=== PATIENT | female | born 1965 | race Caucasian/White ===

== ENCOUNTER → 2017-12-05 14:55 | Outpatient (CLI) | payer OTHER, SELFPAY ==
--- NOTE | 2017-12-05 | DI.RAD.S_ITS ---
PROCEDURE: XR KUB INDICATIONS: KIDNEY STONES TECHNIQUE: One view of the abdomen acquired. COMPARISON: [facility], CR, XR ABDOMEN 1 VIEW, 10/18/2017, 11:18. FINDINGS: Surgical changes and devices: Cholecystectomy. Discectomy and fusion L3-4.. Bowel: Bowel gas pattern is normal. Soft tissues: Numerous calcifications overlie both kidneys.. Visualized solid organ contours appear normal in size. Bones: No suspicious bony lesions. IMPRESSION: Bilateral nephrolithiasis. Dictated by: Barber Zapata M.D. on 12/05/2017 at 15:13 Approved by: Barber Zapata M.D. on 12/05/2017 at 15:14
== END ==
PROVIDERS: PCP Family Medicine; Visit Provider Specialist
DX: N20.0 Calculus of kidney (principal)
CPT/HCPCS: 74018

== ENCOUNTER → 2017-12-11 12:39 | Outpatient (CLI) | payer OTHER, SELFPAY ==
--- NOTE | 2017-12-11 | DI.CT.S_ITS ---
PROCEDURE: CT ABDOMEN PELVIS WO CON INDICATIONS: KIDNEY STONES, COUGH TECHNIQUE: Noncontrast 5 mm thick sections acquired from the diaphragms to the symphysis. 5 mm thick coronal and sagittal reformats were then performed. For radiation dose reduction, the following was used: automated exposure control, adjustment of mA and/or kV according to patient size. COMPARISON: [facility], US, RENAL COMPLETE, 04/06/2016, 16:28. [facility], US, US ABDOMEN, 04/25/2016, 8:06. [facility], CT, KIDNEY/ URETER/BLADDER, 03/06/2017, 16:25. [facility], CT, CT KUB, 07/27/2017, 12:42. [facility], CT, KIDNEY/ URETER/BLADDER, 08/14/2011, 9:30. [facility], CT, CT KUB, 11/17/2017, 10:03. [facility], CT, KIDNEY/ URETER/BLADDER, 11/01/2013, 18:02. [facility], CT, KIDNEY/ URETER/BLADDER, 01/26/2008, 12:00. FINDINGS: Image quality: Excellent. Lung bases: A 5 mm subpleural nodule is noted in the right middle lobe, unchanged from 01/26/2008, consistent with a benign nodule. Lung bases are clear. Heart size is normal. Urinary system: Again noted is a 4 mm proximal right ureteral stone, unchanged in position. There is trace right pelviectasis. Numerous calcific densities are present in kidneys bilaterally with distribution consistent with nephrocalcinosis. Overall, no significant change from last exam. The right kidney is slightly decreased in size compared to the left kidney. Ureters are seen in expected position. Bladder and is contracted. No bladder stones. Other solid organs: Liver is normal in size. Gallbladder is surgically absent. Pancreas is normal in contours. Spleen is normal in size. No adrenal nodules. Peritoneum and bowel: Unenhanced bowel loops demonstrate normal wall thickness and caliber. No free fluid or air. Nodes and vessels: No retroperitoneal or mesenteric adenopathy by size criteria. Aorta and inferior vena cava are normal in caliber. Abdominal wall: No ventral hernias. Pelvis: No free pelvic fluid. No inguinal hernias or adenopathy. Bones: No suspicious bony lesions. There is discectomy and posterior fusion at L3 and L4. No vertebral body compression fractures. IMPRESSION: 1. A 4 mm stone is noted in the proximal right ureter causing trace right pelviectasis. Overall, there is no significant change in position of the right ureter stone. 2. Medullary calcinosis. 3. Right kidney slightly smaller compared to left kidney. Dictated by: Mike Cordoba M.D. on 12/11/2017 at 16:09 Approved by: Mike Cordoba M.D. on 12/11/2017 at 16:20
--- NOTE | 2017-12-11 | DI.RAD.S_ITS ---
PROCEDURE: XR CHEST 2V INDICATIONS: KIDNEY STONES, COUGH TECHNIQUE: 2 views of the chest were acquired. COMPARISON: [facility], CHEST 1 VIEW, 01/02/2013, 18:41. [facility], CHEST 2 VIEW, 01/13/2013, 15:51. FINDINGS: Surgical changes and devices: None. Lungs and pleura: No pleural effusions or pneumothorax. Lungs are clear. Mediastinum: Mediastinal contours are normal. Heart size is normal. Bones and chest wall: No suspicious bony abnormalities. Soft tissues appear unremarkable. IMPRESSION: No acute cardiopulmonary disease. Dictated by: Mike Cordoba M.D. on 12/11/2017 at 15:45 Approved by: Mike Cordoba M.D. on 12/11/2017 at 15:45
== END ==
PROVIDERS: PCP Family Medicine; Visit Provider Specialist
DX: N20.1 Calculus of ureter (principal); R05 Cough; R91.1 Solitary pulmonary nodule; N29 Other disorders of kidney and ureter in diseases classified elsewhere
CPT/HCPCS: 71046; 74176

== ENCOUNTER → 2018-03-12 09:56 | Outpatient (CLI) | payer OTHER, SELFPAY ==
[2018-03-12 10:05] LABS: Bacteria Urine None Seen
[2018-03-12 10:43] LABS: Add Manual Diff / Slide Review NO; Basophils Percent Auto 1.3 % (0-2); Eosinophils Percent Auto 4.8 % (2-4); Hematocrit 46.6 % (36-46); Hemoglobin 15.7 g/dL (12.0-16.0); Lymphocytes Percent Auto 21.3 % (25-40); Mean Corpuscular HGB Conc 33.7 % (30-36); Mean Corpuscular Hemoglobin 29.4 PG (26-34); Mean Corpuscular Volume 87.3 fL (80-100); Monocytes Percent Auto 7.3 % (3-14); Neutrophils Absolute Auto 6500 /uL (3000-5900); Neutrophils Percent Auto 65.3 % (50-75); Platelet Count 380 X10^3/uL (150-400); Red Blood Cell Count 5.34 X10^6/uL (4.0-5.2); Red Cell Distribution Width 13.5 % (11.6-14.8)
[2018-03-12 11:07] LABS: Appearance Urine UA CLOUDY; Bilirubin Urine UA NEGATIVE (NEGATIVE); Color Urine UA YELLOW; Glucose Urine UA NEGATIVE (Normal); Ketones Urine UA TRACE (NEGATIVE); Leukocyte Esterase Urine UA 3+ (NEGATIVE); Nitrite Urine UA NEGATIVE (Negative); Occult Blood Urine UA 1+ (Negative); Protein Urine UA 2+ (Negative); Urobilinogen Urine UA 0.2 E.U./dL (0.2)
[2018-03-12 11:20] LABS: Culture Indicated Urine Specimen Cultured; RBC Urine 5-10/HPF (0-5/HPF); WBC Urine 30-100/HPF (0-5/HPF)
[2018-03-12 11:49] LABS: Collection Time Urine 24 Hours; Creatinine 24 Hour Urine 1250 mg/day (800-1800); Protein (Total) Urine Random 40 mg/dL (0-12); Total Protein 24 Hour Urine 1000 mg/day (42-225); Total Volume Urine 2500 mL
[2018-03-12 12:57] LABS: Alanine Aminotransferase 16 IU/L (9-52); Albumin 4.6 g/dL (3.5-5.0); Albumin Globulin Ratio 1.4 (1.0-2.8); Alkaline Phosphatase 68 U/L (38-126); Aspartate Aminotransferase 20 IU/L (14-36); BUN Creatinine Ratio 22.1 (6-22); Bilirubin Total 0.5 mg/dL (0.2-1.3); Blood Urea Nitrogen 42 mg/dL (7-17); Calcium 9.9 mg/dL (8.4-10.2); Carbon Dioxide 23 mmol/L (22-32); Chloride 99 mmol/L (98-107); Globulin 3.3 g/dL (1.7-4.1); Glucose 169 mg/dL (70-100); HEMOLYSIS < 15 (0-50); Sodium 139 mmol/L (137-145); Total Protein 7.9 g/dL (6.3-8.2)
== END ==
PROVIDERS: Family Provider Specialist; PCP Family Medicine; Visit Provider Specialist
DX: N18.3 Chronic kidney disease, stage 3 (moderate) (principal); E87.6 Hypokalemia; N20.0 Calculus of kidney; N30.10 Interstitial cystitis (chronic) without hematuria
CPT/HCPCS: 36415; 80053; 81001; 82570; 84156; 85025; 87077; 87086

== ENCOUNTER → 2018-07-20 16:03 | Outpatient (REF) | payer OTHER, SELFPAY | LOC: LAB 16:03 | PROVIDERS: Family Provider Specialist; PCP Family Medicine; Visit Provider Internal Medicine | DX: N39.0 Urinary tract infection, site not specified (principal) | CPT/HCPCS: 87086 ==

== ENCOUNTER 2018-07-28 08:00 | Observation (INO) | payer OTHER, SELFPAY ==
[2018-07-28] VITALS (7 sets, daily range): BP systolic 92–121; BP diastolic 55–78; PULSE 70–96; RESP 16–20; TEMP 36.4–36.7; O2SAT 95–100; BMI 22.1
--- NOTE | 2018-07-28 08:17 | DI.RAD.S_ITS ---
PROCEDURE: XR CHEST 1V INDICATIONS: weakness, SOB TECHNIQUE: One view of the chest was acquired. COMPARISON: None. FINDINGS: Surgical changes and devices: None. Lungs and pleura: Lungs are clear. No pleural effusions or pneumothorax. Mediastinum: Mediastinal contours appear normal. Heart size is normal. Bones and chest wall: No suspicious bony lesions. Overlying soft tissues appear unremarkable. IMPRESSION: No acute process. Dictated by: Devon Henry M.D. on 07/28/2018 at 8:37 Approved by: Devon Henry M.D. on 07/28/2018 at 8:38
[2018-07-28 08:25] LABS: Add Manual Diff / Slide Review NO; Basophils Absolute Auto 100 /uL (0-100); Basophils Percent Auto 1.3 % (0-2); Eosinophils Absolute Auto 300 /uL (0-450); Eosinophils Percent Auto 3.3 % (2-4); Hematocrit 43.6 % (36-46); Lymphocytes Absolute Auto 2500 /uL (1100-4500); Lymphocytes Percent Auto 23.6 % (25-40); Mean Corpuscular HGB Conc 34.3 % (30-36); Mean Corpuscular Hemoglobin 30.8 PG (26-34); Mean Corpuscular Volume 89.7 fL (80-100); Monocytes Absolute Auto 900 /uL (0-900); Monocytes Percent Auto 8.5 % (3-14); Neutrophils Absolute Auto 6700 /uL (1500-7000); Neutrophils Percent Auto 63.3 % (50-75); Platelet Count 479 X10^3/uL (150-400); Red Blood Cell Count 4.87 X10^6/uL (4.0-5.2); Red Cell Distribution Width 13.9 % (11.6-14.8); White Blood Cell Count 10.6 X10^3/uL (4.5-11.0)
--- NOTE | 2018-07-28 08:31 | ED.DIZZY ---
HPI - Dizziness General Chief Complaint: Dizziness Stated Complaint: SOB/DIZZY Time Seen by Provider: 07/28/18 08:14 Source: patient Mode of arrival: ambulatory Limitations: no limitations History of Present Illness HPI Narrative: 52F smoker with history of UTI, bacterial vaginosis, and episodes of electrolyte abnormalities presents with weeks of progressive fatigue and weakness and now dizziness on standing. She denies N/V/D. She is on ABX for bacterial vaginosis. She admits to frequent urination for quite some time but states she drinks a significant amount of water. She has had no fever or chills. She drinks no alcohol and denies street drugs. She denies any new medications other than that which is being used to treat her vaginosis. She has seen her primary care provider for this as recently as a few weeks ago but states her symptoms are worsening MD complaint: dizziness and lightheadedness Onset (ago): week(s) Timing: gradual onset Description: lightheadedness History of similar episodes: Yes History of trauma: No Severity: moderate Relieving factors: nothing Exacerbating factors: nothing Associated symptoms: weakness Related Data Home Medications Medication Instructions Recorded Confirmed potassium citrate [Urocit-K 10] 10 meq PO QDAY #0 07/10/12 07/28/18 chlorthalidone 25 mg PO DAILY 07/28/18 07/28/18 clonazepam 0.5 mg PO DAILY 07/28/18 07/28/18 hydroxyzine HCl 25 mg PO BID 07/28/18 07/28/18 levothyroxine 50 mcg PO DAILY 07/28/18 07/28/18 methocarbamol 500 mg PO Q8H 07/28/18 07/28/18 metronidazole [Flagyl] 500 mg PO Q8H 07/28/18 07/28/18 morphine 15 mg PO Q8H 07/28/18 07/28/18 oxycodone 10 mg PO Q4-6H PRN MDD 4 07/28/18 07/28/18 sevelamer carbonate 800 mg PO BID 07/28/18 07/28/18 sumatriptan succinate 100 mg PO PRN PRN MDD 2 07/28/18 07/28/18 Allergies Allergy/AdvReac Type Severity Reaction Status Date / Time ertapenem [ERTAPENEM] Allergy Unknown Verified 07/28/18 08:15 iodine [IODINE] Allergy Unknown DRINKING Verified 07/28/18 08:15 CONTRAST GIVES HER WELTS prednisone [PREDNISONE] Allergy Unknown GETS Verified 07/28/18 08:15 ENRAGED AND SKIN IS CRAWLING Exam Initial Vital Signs Initial Vital Signs: Vital Signs Temperature 97.6 F 07/28/18 08:15 Pulse Rate 96 H 07/28/18 08:15 Respiratory Rate 18 07/28/18 08:15 Blood Pressure 101/78 07/28/18 08:15 Pulse Oximetry 100 07/28/18 08:15 Course Orders Ordered: ED Orders 07/28/18 08:05 Magnesium Stat 07/28/18 08:09 EKG-12 Lead Routine 07/28/18 08:15 Complete Blood Count AUTO DIFF Stat Comprehensive Metabolic Panel Stat Creatinine Urine Random Stat Lipase Stat Troponin & CK Cardiac Panel Stat Urinalysis and Microscopic Stat Urine Culture Stat 07/28/18 08:17 XR chest 1V Stat 07/28/18 09:45 US renal complete Stat 07/28/18 09:50 Ionized Calcium Stat Sodium Chloride (Normal Saline 0.9%) 1,000 mls @ 150 mls/hr IV CONT AUDREY Potassium Chloride 40 meq/ (Sodium Chloride) 520 mls @ 130 mls/hr IV NOW ONE Stop: 07/28/18 12:51 Last Admin: 07/28/18 09:15 Dose: 130 mls/hr Discontinued Medications Aspirin (Aspirin Chew) 324 mg PO NOW ONE Stop: 07/28/18 08:15 Last Admin: 07/28/18 08:38 Dose: 324 mg Sodium Chloride (Normal Saline 0.9%) 1,000 mls @ 1,000 mls/hr IV BOLUS ONE Stop: 07/28/18 09:29 Last Admin: 07/28/18 10:42 Dose: 1,000 mls/hr Potassium Chloride (Potassium Chloride) 40 meq PO NOW ONE Stop: 07/28/18 08:53 Last Admin: 07/28/18 08:58 Dose: 40 meq Consultations Consultation #1: Dr. Pedersen happy to accept, but asks that I discuss with nephrology Consultation #2: Nephrology consulted at [facility]. They ask us to add a few additional labs, during this phone call it is brought to my attention that the patient actually is on chlorthalidone. Vital Signs - 8 hr 07/28/18 08:15 Temperature 97.6 F Pulse Rate 96 H Respiratory Rate 18 Blood Pressure 101/78 Pulse Oximetry 100 MDM - Dizziness Medical Records Attestation: I reviewed the patient's medical records. Lab Data Attestation: I reviewed the patient's lab results. Result diagrams: 07/28/18 08:15 07/28/18 08:15 Lab Results 07/28/18 07/28/18 07/28/18 Range/Units 08:05 08:15 08:15 WBC 10.6 (4.5-11.0) X10^3/uL RBC 4.87 (4.0-5.2) X10^6/uL Hgb 15.0 (12.0-16.0) g/dL Hct 43.6 (36-46) % MCV 89.7 (80-100) fL MCH 30.8 (26-34) PG MCHC 34.3 (30-36) % RDW 13.9 (11.6-14.8) % Plt Count 479 H (150-400) X10^3/uL Neut % (Auto) 63.3 (50-75) % Lymph % (Auto) 23.6 L (25-40) % [place] % (Auto) 8.5 (3-14) % Eos % (Auto) 3.3 (2-4) % Baso % (Auto) 1.3 (0-2) % Neut # (Auto) 6700 (2106-3621) /uL Lymph # (Auto) 2500 (1867-6933) /uL [place] # (Auto) 900 (0-900) /uL Eos # (Auto) 300 (0-450) /uL Baso # (Auto) 100 (0-100) /uL Sodium 138 (137-145) mmol/L Potassium 2.0 L* (3.4-5.1) mmol/L Chloride 104 (98-107) mmol/L Carbon Dioxide 19 L (22-32) mmol/L BUN 46 H (7-17) mg/dL Creatinine 2.40 H (0.52-1.04) mg/dL Estimated GFR 21.4 L (>60) mL/min BUN/Creatinine Ratio 19.2 (6-22) Glucose 170 H (70-100) mg/dL Calcium 10.3 H (8.4-10.2) mg/dL Magnesium 2.8 H (1.6-2.3) mg/dL Total Bilirubin 0.7 (0.2-1.3) mg/dL AST 18 (14-36) IU/L ALT 19 (9-52) IU/L Alkaline Phosphatase 64 (38-126) U/L Total Creatine Kinase 181 H (30-135) U/L CK-MB (CK-2) 3.66 H (<2.37) ng/mL CK-MB (CK-2) Rel Index 2.0 (1.5-5.0) % Troponin I < 0.012 (0.01-0.034) ng/mL Total Protein 8.3 H (6.3-8.2) g/dL Albumin 4.5 (3.5-5.0) g/dL Globulin 3.8 (1.7-4.1) g/dL Albumin/Globulin Ratio 1.2 (1.0-2.8) Lipase 160 (23-300) U/L Urine Color Urine Appearance Urine pH (4.5-8.0) Ur Specific [place] (1.000-1.035) Urine Protein (Negative) Urine Glucose (UA) (Negative) g/dL Urine Ketones (NEGATIVE) Urine Occult Blood (Negative) Urine Nitrate (Negative) Urine Bilirubin (NEGATIVE) Urine Urobilinogen (0.2) E.U./dL Ur Leukocyte Esterase (NEGATIVE) Urine RBC (0-5/HPF) Urine WBC (0-5/HPF) Ur Squamous Epith Cells Urine Bacteria (None) Ur Culture Indicated? Urine Creatinine mg/dL 07/28/18 07/28/18 Range/Units 08:15 08:15 WBC (4.5-11.0) X10^3/uL RBC (4.0-5.2) X10^6/uL Hgb (12.0-16.0) g/dL Hct (36-46) % MCV (80-100) fL MCH (26-34) PG MCHC (30-36) % RDW (11.6-14.8) % Plt Count (150-400) X10^3/uL Neut % (Auto) (50-75) % Lymph % (Auto) (25-40) % [place] % (Auto) (3-14) % Eos % (Auto) (2-4) % Baso % (Auto) (0-2) % Neut # (Auto) (0390-8080) /uL Lymph # (Auto) (9481-6563) /uL [place] # (Auto) (0-900) /uL Eos # (Auto) (0-450) /uL Baso # (Auto) (0-100) /uL Sodium (137-145) mmol/L Potassium (3.4-5.1) mmol/L Chloride (98-107) mmol/L Carbon Dioxide (22-32) mmol/L BUN (7-17) mg/dL Creatinine (0.52-1.04) mg/dL Estimated GFR (>60) mL/min BUN/Creatinine Ratio (6-22) Glucose (70-100) mg/dL Calcium (8.4-10.2) mg/dL Magnesium (1.6-2.3) mg/dL Total Bilirubin (0.2-1.3) mg/dL AST (14-36) IU/L ALT (9-52) IU/L Alkaline Phosphatase (38-126) U/L Total Creatine Kinase (30-135) U/L CK-MB (CK-2) (<2.37) ng/mL CK-MB (CK-2) Rel Index (1.5-5.0) % Troponin I (0.01-0.034) ng/mL Total Protein (6.3-8.2) g/dL Albumin (3.5-5.0) g/dL Globulin (1.7-4.1) g/dL Albumin/Globulin Ratio (1.0-2.8) Lipase (23-300) U/L Urine Color Yellow Urine Appearance Clear Urine pH 6.5 (4.5-8.0) Ur Specific [place] 1.010 (1.000-1.035) Urine Protein 2+ H (Negative) Urine Glucose (UA) Negative (Negative) g/dL Urine Ketones Negative (NEGATIVE) Urine Occult Blood 1+ H (Negative) Urine Nitrate Negative (Negative) Urine Bilirubin Negative (NEGATIVE) Urine Urobilinogen 0.2 (0.2) E.U./dL Ur Leukocyte Esterase 2+ H (NEGATIVE) Urine RBC 5-10/hpf H (0-5/HPF) Urine WBC 30-100/hpf H (0-5/HPF) Ur Squamous Epith Cells 1-5 /hpf Urine Bacteria None seen (None) Ur Culture Indicated? Specimen cultured Urine Creatinine 74.5 mg/dL Imaging Data Renal US: Radiologist's impression: INDICATIONS: RENAL FAILURE; PROTEINURIA, HYPOKALEMIC TECHNIQUE: Real-time scanning was performed of the kidneys and bladder, with image documentation. COMPARISON: [facility], CT, CT ABDOMEN PELVIS WO CON, 12/11/2017, 12:58. [facility], US, RENAL COMPLETE, 04/06/2016, 16:28. FINDINGS: Kidneys: Kidneys are normal in size. Right kidney measures 8.6 cm long; left kidney measures 11.1 cm long. Right renal cortical thickness is 0.9 cm; left renal cortical thickness is 1.0 cm. Renal cortical echotexture is normal. Multiple stones are noted within the kidneys bilaterally, the largest measuring 14 mm on the greater than 17 mm on the left. There is no obstruction. No suspicious solid mass lesions. Bladder: Pre-void bladder volume is zero mL. Post-void residual is zero mL. Pre-void images demonstrate no intraluminal masses or stones. On pre-void images, neither ureteral jets are noted with color Doppler interrogation. (Of note, ureteral jets may not be detectable in up to 25% of cases due to insufficient differences in specific gravity between ureteral and bladder urine). Miscellaneous: No free pelvic fluid. IMPRESSION: 1. Bilateral renal calculi as previously identified. No obstruction. 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 Dictated by: Chloe Nagel M.D. on 07/28/2018 at 9:32 Approved by: Chloe Nagel M.D. on 07/28/2018 at 9:34 [facility] Narrative Medical decision making narrative: 52F with chronic kidney disease and prior episodes of hypokalemia presents with worsening generalized weakness over the past few weeks. She additionally complains of urinary frequency and urgency. Initially she states she does not have a rn mobile but towards the end of the visit she remembered that she sees Dr. Cooper in [place]. Additionally it was not initially known that the patient is currently taking chlorthalidone, she did not mention it because she did not take it today. The multiple etiologies were considered it seems at this point the most likely cause of her hypokalemia is in fact her chlorthalidone. Discharge Plan Departure Patient Disposition: Admitted As Inpatient Clinical Impression: Hypokalemia, Dehydration Renal failure Qualifiers: Renal failure chronicity: acute Acute renal failure type: unspecified Qualified Code(s): N17.9 - Acute kidney failure, unspecified Interventions: ED Discharge Assessment Last Done: 07/28/18 10:21 Admit Date/Time: 07/28/18 09:33 Admit Provider: Jessa Pedersen
--- NOTE | 2018-07-28 08:35 | ED_ITS ---
HPI - Dizziness General Chief Complaint: Dizziness Stated Complaint: SOB/DIZZY Time Seen by Provider: 07/28/18 08:14 Source: patient Mode of arrival: ambulatory Limitations: no limitations History of Present Illness HPI Narrative: 52F smoker with history of UTI, bacterial vaginosis, and episodes of electrolyte abnormalities presents with weeks of progressive fatigue and weakness and now dizziness on standing. She denies N/V/D. She is on ABX for bacterial vaginosis. She admits to frequent urination for quite some time but states she drinks a significant amount of water. She has had no fever or chills. She drinks no alcohol and denies street drugs. She denies any new medications other than that which is being used to treat her vaginosis. She has seen her primary care provider for this as recently as a few weeks ago but states her symptoms are worsening MD complaint: dizziness and lightheadedness Onset (ago): week(s) Timing: gradual onset Description: lightheadedness History of similar episodes: Yes History of trauma: No Severity: moderate Relieving factors: nothing Exacerbating factors: nothing Associated symptoms: weakness Related Data Home Medications Medication Instructions Recorded Confirmed potassium citrate [Urocit-K 10] 10 meq PO QDAY #0 07/10/12 07/28/18 chlorthalidone 25 mg PO DAILY 07/28/18 07/28/18 clonazepam 0.5 mg PO DAILY 07/28/18 07/28/18 hydroxyzine HCl 25 mg PO BID 07/28/18 07/28/18 levothyroxine 50 mcg PO DAILY 07/28/18 07/28/18 methocarbamol 500 mg PO Q8H 07/28/18 07/28/18 metronidazole [Flagyl] 500 mg PO Q8H 07/28/18 07/28/18 morphine 15 mg PO Q8H 07/28/18 07/28/18 oxycodone 10 mg PO Q4-6H PRN MDD 4 07/28/18 07/28/18 sevelamer carbonate 800 mg PO BID 07/28/18 07/28/18 sumatriptan succinate 100 mg PO PRN PRN MDD 2 07/28/18 07/28/18 Allergies Allergy/AdvReac Type Severity Reaction Status Date / Time ertapenem [ERTAPENEM] Allergy Unknown Verified 07/28/18 08:15 iodine [IODINE] Allergy Unknown DRINKING Verified 07/28/18 08:15 CONTRAST GIVES HER WELTS prednisone [PREDNISONE] Allergy Unknown GETS Verified 07/28/18 08:15 ENRAGED AND SKIN IS CRAWLING Exam Initial Vital Signs Initial Vital Signs: Vital Signs Temperature 97.6 F 07/28/18 08:15 Pulse Rate 96 H 07/28/18 08:15 Respiratory Rate 18 07/28/18 08:15 Blood Pressure 101/78 07/28/18 08:15 Pulse Oximetry 100 07/28/18 08:15 Course Orders Ordered: ED Orders 07/28/18 08:05 Magnesium Stat 07/28/18 08:09 EKG-12 Lead Routine 07/28/18 08:15 Complete Blood Count AUTO DIFF Stat Comprehensive Metabolic Panel Stat Creatinine Urine Random Stat Lipase Stat Troponin & CK Cardiac Panel Stat Urinalysis and Microscopic Stat Urine Culture Stat 07/28/18 08:17 XR chest 1V Stat 07/28/18 09:45 US renal complete Stat 07/28/18 09:50 Ionized Calcium Stat Sodium Chloride (Normal Saline 0.9%) 1,000 mls @ 150 mls/hr IV CONT AUDREY Potassium Chloride 40 meq/ (Sodium Chloride) 520 mls @ 130 mls/hr IV NOW ONE Stop: 07/28/18 12:51 Last Admin: 07/28/18 09:15 Dose: 130 mls/hr Discontinued Medications Aspirin (Aspirin Chew) 324 mg PO NOW ONE Stop: 07/28/18 08:15 Last Admin: 07/28/18 08:38 Dose: 324 mg Sodium Chloride (Normal Saline 0.9%) 1,000 mls @ 1,000 mls/hr IV BOLUS ONE Stop: 07/28/18 09:29 Last Admin: 07/28/18 10:42 Dose: 1,000 mls/hr Potassium Chloride (Potassium Chloride) 40 meq PO NOW ONE Stop: 07/28/18 08:53 Last Admin: 07/28/18 08:58 Dose: 40 meq Consultations Consultation #1: Dr. Pedersen happy to accept, but asks that I discuss with nephrology Consultation #2: Nephrology consulted at [facility]. They ask us to add a few additional labs, during this phone call it is brought to my attention that the patient actually is on chlorthalidone. Vital Signs - 8 hr 07/28/18 08:15 Temperature 97.6 F Pulse Rate 96 H Respiratory Rate 18 Blood Pressure 101/78 Pulse Oximetry 100 MDM - Dizziness Medical Records Attestation: I reviewed the patient's medical records. Lab Data Attestation: I reviewed the patient's lab results. Result diagrams: 07/28/18 08:15 07/28/18 08:15 Lab Results 07/28/18 07/28/18 07/28/18 Range/Units 08:05 08:15 08:15 WBC 10.6 (4.5-11.0) X10^3/uL RBC 4.87 (4.0-5.2) X10^6/uL Hgb 15.0 (12.0-16.0) g/dL Hct 43.6 (36-46) % MCV 89.7 (80-100) fL MCH 30.8 (26-34) PG MCHC 34.3 (30-36) % RDW 13.9 (11.6-14.8) % Plt Count 479 H (150-400) X10^3/uL Neut % (Auto) 63.3 (50-75) % Lymph % (Auto) 23.6 L (25-40) % [place] % (Auto) 8.5 (3-14) % Eos % (Auto) 3.3 (2-4) % Baso % (Auto) 1.3 (0-2) % Neut # (Auto) 6700 (5956-7787) /uL Lymph # (Auto) 2500 (9084-8068) /uL [place] # (Auto) 900 (0-900) /uL Eos # (Auto) 300 (0-450) /uL Baso # (Auto) 100 (0-100) /uL Sodium 138 (137-145) mmol/L Potassium 2.0 L* (3.4-5.1) mmol/L Chloride 104 (98-107) mmol/L Carbon Dioxide 19 L (22-32) mmol/L BUN 46 H (7-17) mg/dL Creatinine 2.40 H (0.52-1.04) mg/dL Estimated GFR 21.4 L (>60) mL/min BUN/Creatinine Ratio 19.2 (6-22) Glucose 170 H (70-100) mg/dL Calcium 10.3 H (8.4-10.2) mg/dL Magnesium 2.8 H (1.6-2.3) mg/dL Total Bilirubin 0.7 (0.2-1.3) mg/dL AST 18 (14-36) IU/L ALT 19 (9-52) IU/L Alkaline Phosphatase 64 (38-126) U/L Total Creatine Kinase 181 H (30-135) U/L CK-MB (CK-2) 3.66 H (<2.37) ng/mL CK-MB (CK-2) Rel Index 2.0 (1.5-5.0) % Troponin I < 0.012 (0.01-0.034) ng/mL Total Protein 8.3 H (6.3-8.2) g/dL Albumin 4.5 (3.5-5.0) g/dL Globulin 3.8 (1.7-4.1) g/dL Albumin/Globulin Ratio 1.2 (1.0-2.8) Lipase 160 (23-300) U/L Urine Color Urine Appearance Urine pH (4.5-8.0) Ur Specific [place] (1.000-1.035) Urine Protein (Negative) Urine Glucose (UA) (Negative) g/dL Urine Ketones (NEGATIVE) Urine Occult Blood (Negative) Urine Nitrate (Negative) Urine Bilirubin (NEGATIVE) Urine Urobilinogen (0.2) E.U./dL Ur Leukocyte Esterase (NEGATIVE) Urine RBC (0-5/HPF) Urine WBC (0-5/HPF) Ur Squamous Epith Cells Urine Bacteria (None) Ur Culture Indicated? Urine Creatinine mg/dL 07/28/18 07/28/18 Range/Units 08:15 08:15 WBC (4.5-11.0) X10^3/uL RBC (4.0-5.2) X10^6/uL Hgb (12.0-16.0) g/dL Hct (36-46) % MCV (80-100) fL MCH (26-34) PG MCHC (30-36) % RDW (11.6-14.8) % Plt Count (150-400) X10^3/uL Neut % (Auto) (50-75) % Lymph % (Auto) (25-40) % [place] % (Auto) (3-14) % Eos % (Auto) (2-4) % Baso % (Auto) (0-2) % Neut # (Auto) (4136-4186) /uL Lymph # (Auto) (3481-8786) /uL [place] # (Auto) (0-900) /uL Eos # (Auto) (0-450) /uL Baso # (Auto) (0-100) /uL Sodium (137-145) mmol/L Potassium (3.4-5.1) mmol/L Chloride (98-107) mmol/L Carbon Dioxide (22-32) mmol/L BUN (7-17) mg/dL Creatinine (0.52-1.04) mg/dL Estimated GFR (>60) mL/min BUN/Creatinine Ratio (6-22) Glucose (70-100) mg/dL Calcium (8.4-10.2) mg/dL Magnesium (1.6-2.3) mg/dL Total Bilirubin (0.2-1.3) mg/dL AST (14-36) IU/L ALT (9-52) IU/L Alkaline Phosphatase (38-126) U/L Total Creatine Kinase (30-135) U/L CK-MB (CK-2) (<2.37) ng/mL CK-MB (CK-2) Rel Index (1.5-5.0) % Troponin I (0.01-0.034) ng/mL Total Protein (6.3-8.2) g/dL Albumin (3.5-5.0) g/dL Globulin (1.7-4.1) g/dL Albumin/Globulin Ratio (1.0-2.8) Lipase (23-300) U/L Urine Color Yellow Urine Appearance Clear Urine pH 6.5 (4.5-8.0) Ur Specific [place] 1.010 (1.000-1.035) Urine Protein 2+ H (Negative) Urine Glucose (UA) Negative (Negative) g/dL Urine Ketones Negative (NEGATIVE) Urine Occult Blood 1+ H (Negative) Urine Nitrate Negative (Negative) Urine Bilirubin Negative (NEGATIVE) Urine Urobilinogen 0.2 (0.2) E.U./dL Ur Leukocyte Esterase 2+ H (NEGATIVE) Urine RBC 5-10/hpf H (0-5/HPF) Urine WBC 30-100/hpf H (0-5/HPF) Ur Squamous Epith Cells 1-5 /hpf Urine Bacteria None seen (None) Ur Culture Indicated? Specimen cultured Urine Creatinine 74.5 mg/dL Imaging Data Renal US: Radiologist's impression: INDICATIONS: RENAL FAILURE; PROTEINURIA, HYPOKALEMIC TECHNIQUE: Real-time scanning was performed of the kidneys and bladder, with image documentation. COMPARISON: [facility], CT, CT ABDOMEN PELVIS WO CON, 12/11/2017, 12:58. [facility], US, RENAL COMPLETE, 04/06/2016, 16:28. FINDINGS: Kidneys: Kidneys are normal in size. Right kidney measures 8.6 cm long; left kidney measures 11.1 cm long. Right renal cortical thickness is 0.9 cm; left renal cortical thickness is 1.0 cm. Renal cortical echotexture is normal. Multiple stones are noted within the kidneys bilaterally, the largest measuring 14 mm on the greater than 17 mm on the left. There is no obstruction. No suspicious solid mass lesions. Bladder: Pre-void bladder volume is zero mL. Post-void residual is zero mL. Pre-void images demonstrate no intraluminal masses or stones. On pre-void images, neither ureteral jets are noted with color Doppler interrogation. (Of note, ureteral jets may not be detectable in up to 25% of cases due to insufficient differences in specific gravity between ureteral and bladder urine). Miscellaneous: No free pelvic fluid. IMPRESSION: 1. Bilateral renal calculi as previously identified. No obstruction. 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 Dictated by: Chloe Nagel M.D. on 07/28/2018 at 9:32 Approved by: Chloe Nagel M.D. on 07/28/2018 at 9:34 [facility] Narrative Medical decision making narrative: 52F with chronic kidney disease and prior episodes of hypokalemia presents with worsening generalized weakness over the past few weeks. She additionally complains of urinary frequency and urgency. Initially she states she does not have a parts processor but towards the end of the visit she remembered that she sees Dr. Cooper in [place]. Additionally it was not initially known that the patient is currently taking chlorthalidone, she did not mention it because she did not take it today. The multiple etiologies were considered it seems at this point the most likely cause of her hypokalemia is in fact her chlorthalidone. Discharge Plan Departure Patient Disposition: Admitted As Inpatient Clinical Impression: Hypokalemia, Dehydration Renal failure Qualifiers: Renal failure chronicity: acute Acute renal failure type: unspecified Qualified Code(s): N17.9 - Acute kidney failure, unspecified Interventions: ED Discharge Assessment Last Done: 07/28/18 10:21 Admit Date/Time: 07/28/18 09:33 Admit Provider: Jessa Pedersen
[2018-07-28 08:36] LABS: Alanine Aminotransferase 19 IU/L (9-52); Albumin 4.5 g/dL (3.5-5.0); Albumin Globulin Ratio 1.2 (1.0-2.8); Alkaline Phosphatase 64 U/L (38-126); Aspartate Aminotransferase 18 IU/L (14-36); BUN Creatinine Ratio 19.2 (6-22); Bilirubin Total 0.7 mg/dL (0.2-1.3); Blood Urea Nitrogen 46 mg/dL (7-17); Calcium 10.3 mg/dL (8.4-10.2); Carbon Dioxide 19 mmol/L (22-32); Chloride 104 mmol/L (98-107); Creatine Kinase 181 U/L (30-135); Estimated Glomerular Filt Rate 21.4 mL/min (>60); Globulin 3.8 g/dL (1.7-4.1); Glucose 170 mg/dL (70-100); HEMOLYSIS < 15 (0-50); Lipase 160 U/L (23-300); Sodium 138 mmol/L (137-145); Total Protein 8.3 g/dL (6.3-8.2)
[2018-07-28] MEDS: ASPIRIN 81 MG TAB 324 MG PO (08:38)
[2018-07-28 08:46] LABS: Bacteria Urine None Seen
[2018-07-28 08:47] LABS: Troponin I < 0.012 ng/mL (0.01-0.034)
[2018-07-28 08:48] LABS: Appearance Urine UA CLEAR; Bilirubin Urine UA NEGATIVE (NEGATIVE); Color Urine UA YELLOW; Glucose Urine UA NEGATIVE (Negative); Ketones Urine UA NEGATIVE (NEGATIVE); Leukocyte Esterase Urine UA 2+ (NEGATIVE); Nitrite Urine UA NEGATIVE (Negative); Occult Blood Urine UA 1+ (Negative); Protein Urine UA 2+ (Negative); Urobilinogen Urine UA 0.2 E.U./dL (0.2); pH Urine UA 6.5 (4.5-8.0)
[2018-07-28 08:51] LABS: Creatine Kinase MB 3.66 ng/mL (<2.37)
[2018-07-28 08:54] LABS: RBC Urine 5-10/HPF (0-5/HPF)
[2018-07-28 08:55] LABS: Culture Indicated Urine Specimen Cultured; Squamous Epithelial Cell Urine 1-5 /HPF; WBC Urine 30-100/HPF (0-5/HPF)
[2018-07-28] MEDS: POTASSIUM CHLORIDE 20 MEQ/15 ML UDC 40 MEQ PO (08:58)
[2018-07-28] MEDS: POTASSIUM CHLORIDE 40 MEQ in SODIUM CHLORIDE 0.9% 500 ML 130 ML IV (09:15)
--- NOTE | 2018-07-28 09:45 | DI.US.S_ITS ---
PROCEDURE: US RENAL COMPLETE INDICATIONS: RENAL FAILURE; PROTEINURIA, HYPOKALEMIC TECHNIQUE: Real-time scanning was performed of the kidneys and bladder, with image documentation. COMPARISON: [facility], CT, CT ABDOMEN PELVIS WO CON, 12/11/2017, 12:58. [facility], US, RENAL COMPLETE, 04/06/2016, 16:28. FINDINGS: Kidneys: Kidneys are normal in size. Right kidney measures 8.6 cm long; left kidney measures 11.1 cm long. Right renal cortical thickness is 0.9 cm; left renal cortical thickness is 1.0 cm. Renal cortical echotexture is normal. Multiple stones are noted within the kidneys bilaterally, the largest measuring 14 mm on the greater than 17 mm on the left. There is no obstruction. No suspicious solid mass lesions. Bladder: Pre-void bladder volume is zero mL. Post-void residual is zero mL. Pre-void images demonstrate no intraluminal masses or stones. On pre-void images, neither ureteral jets are noted with color Doppler interrogation. (Of note, ureteral jets may not be detectable in up to 25% of cases due to insufficient differences in specific gravity between ureteral and bladder urine). Miscellaneous: No free pelvic fluid. IMPRESSION: 1. Bilateral renal calculi as previously identified. No obstruction. 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 Dictated by: Chloe Nagel M.D. on 07/28/2018 at 9:32 Approved by: Chloe Nagel M.D. on 07/28/2018 at 9:34
[2018-07-28 10:40] LABS: Creatinine Urine Random 74.5 mg/dL
[2018-07-28 10:41] LABS: Magnesium 2.8 mg/dL (1.6-2.3)
[2018-07-28] MEDS: SODIUM CHLORIDE 0.9% 1,000 ML 1000 ML IV (10:42)
--- NOTE | 2018-07-28 11:16 | PC.NURSE ---
Admit: Patient arrived to room 223 at 1045. Awake and alert, oriented X3. Reports recent history of dizziness, lightheadedness, weakness and almost passing out. Fall precautions in place, patient agrees to call for assist when OOB. Vitals stable. Room air 100%. K-rider infusing as ordered, IV site in R wrist/FA WNL. Float BRADFORD Honeycutt is working on the admit assessment. This publicity writer let Dr Pedersen know that patient is on the floor.
--- NOTE | 2018-07-28 11:47 | PC.NURSE ---
admission complete. pt up to bathroom, steady on feet.
--- NOTE | 2018-07-28 13:07 | PM.HP.1 ---
History of Present Illness Date Patient Seen: 07/28/18 Chief complaint: SOB/DIZZY Narrative: the patient is a 52-year-old female with a history of kidney stones, migraine headaches, chronic back pain who was in her usual state of health until Friday. She reports at that time becoming very weak. Patient has a history of having low potassium. She felt that her potassium was again low. She had been drinking lots of fluid. Despite that she felt weak in her muscles had nausea felt dizzy and presented to the emergency room for evaluation. In the emergency department the patient was found to be in acute renal failure with a creatinine of 2.4. Her potassium was markedly depressed at 2.0. The patient is on chlorthalidone for treatment of nephrolithiasis. She is under the care of a vocational trainer for this. The patient received renal ultrasound which confirmed a nephrolithiasis. She had a urine creatinine and urine protein obtained as well. She is admitted to the hospital at this time for definitive treatment. Patient History Medical History Chronic back pain (Acute) Migraine headache (Acute) Nephrolithiasis (Acute) Surgical History History of lumbar laminectomy (Acute) Family History Mother Hypertension Father Kidney stones Social History household members: friend(s) Smoking Status: Current every day smoker alcohol intake: never Family & Social History Family History Mother Hypertension Father Kidney stones Social History: household members friend(s) Prior Living Arrangements House Safety & Behavioral: Feels Safe in Current Yes Environment Been Physically Hurt or No Threatened By a Person Suicidal Ideation Description None Tobacco & Substance use: Tobacco type cigarettes Smoking Status Current every day smoker alcohol intake never Substance Use Type does not use Meds Home Medications Medication Instructions Recorded Confirmed Type potassium citrate [Urocit-K 10] 10 meq PO QDAY #0 07/10/12 07/28/18 History chlorthalidone 25 mg PO DAILY 07/28/18 07/28/18 History clonazepam 0.5 mg PO DAILY 07/28/18 07/28/18 History hydroxyzine HCl 25 mg PO BID 07/28/18 07/28/18 History levothyroxine 50 mcg PO DAILY 07/28/18 07/28/18 History methocarbamol 500 mg PO Q8H 07/28/18 07/28/18 History metronidazole [Flagyl] 500 mg PO Q8H 07/28/18 07/28/18 History morphine 15 mg PO Q8H 07/28/18 07/28/18 History oxycodone 10 mg PO Q4-6H PRN MDD 4 07/28/18 07/28/18 History sevelamer carbonate 800 mg PO BID 07/28/18 07/28/18 History sumatriptan succinate 100 mg PO PRN PRN MDD 2 07/28/18 07/28/18 History Allergies Allergy/AdvReac Type Severity Reaction Status Date / Time ertapenem [ERTAPENEM] Allergy Unknown Verified 07/28/18 08:15 iodine [IODINE] Allergy Unknown DRINKING Verified 07/28/18 08:15 CONTRAST GIVES HER WELTS prednisone [PREDNISONE] Allergy Unknown GETS Verified 07/28/18 08:15 ENRAGED AND SKIN IS CRAWLING Review of Systems Review of Systems All systems reviewed & are unremarkable except as noted in HPI and below Exam Vital Signs (past 8 hours): - 07/28/18 08:15 07/28/18 12:15 Temperature 97.6 F 97.8 F Pulse Rate 96 H 74 Respiratory Rate 18 16 Blood Pressure 101/78 96/64 Pulse Oximetry 100 100 Oxygen Delivery Method Room Air Narrative Exam Narrative: HEENT: Normocephalic atraumatic, extraocular muscles are intact, oropharynx is clear, neck is supple, lungs: Clear to auscultation cardiac exam: Regular rate and rhythm normal S1 and S2 no murmurs rubs or gallops abdomen: Soft nontender nondistended no appreciable hepatosplenomegaly extremities: No edema neuro exam: Patient is awake alert and appropriate. She has no active hallucinations. Her cranial nerves are intact. Strength is symmetric and equal. Sensation is grossly intact. Reflexes are brisk and equal. Skin: No lesion psychiatric exam: Normal Objective Labs Result Diagrams: 07/28/18 08:15 07/28/18 08:15 Labs: Laboratory Results - last 24 hr 07/28/18 07/28/18 07/28/18 08:05 08:15 08:15 WBC 10.6 RBC 4.87 Hgb 15.0 Hct 43.6 MCV 89.7 MCH 30.8 MCHC 34.3 RDW 13.9 Plt Count 479 H Neut % (Auto) 63.3 Lymph % (Auto) 23.6 L [place] % (Auto) 8.5 Eos % (Auto) 3.3 Baso % (Auto) 1.3 Neut # (Auto) 6700 Lymph # (Auto) 2500 [place] # (Auto) 900 Eos # (Auto) 300 Baso # (Auto) 100 Sodium 138 Potassium 2.0 L* Chloride 104 Carbon Dioxide 19 L BUN 46 H Creatinine 2.40 H Estimated GFR 21.4 L BUN/Creatinine Ratio 19.2 Glucose 170 H Calcium 10.3 H Magnesium 2.8 H Total Bilirubin 0.7 AST 18 ALT 19 Alkaline Phosphatase 64 Total Creatine Kinase 181 H CK-MB (CK-2) 3.66 H CK-MB (CK-2) Rel Index 2.0 Troponin I < 0.012 Total Protein 8.3 H Albumin 4.5 Globulin 3.8 Albumin/Globulin Ratio 1.2 Lipase 160 Urine Color Urine Appearance Urine pH Ur Specific [place] Urine Protein Urine Glucose (UA) Urine Ketones Urine Occult Blood Urine Nitrate Urine Bilirubin Urine Urobilinogen Ur Leukocyte Esterase Urine RBC Urine WBC Ur Squamous Epith Cells Urine Bacteria Ur Culture Indicated? Urine Creatinine 07/28/18 07/28/18 08:15 08:15 WBC RBC Hgb Hct MCV MCH MCHC RDW Plt Count Neut % (Auto) Lymph % (Auto) [place] % (Auto) Eos % (Auto) Baso % (Auto) Neut # (Auto) Lymph # (Auto) [place] # (Auto) Eos # (Auto) Baso # (Auto) Sodium Potassium Chloride Carbon Dioxide BUN Creatinine Estimated GFR BUN/Creatinine Ratio Glucose Calcium Magnesium Total Bilirubin AST ALT Alkaline Phosphatase Total Creatine Kinase CK-MB (CK-2) CK-MB (CK-2) Rel Index Troponin I Total Protein Albumin Globulin Albumin/Globulin Ratio Lipase Urine Color Yellow Urine Appearance Clear Urine pH 6.5 Ur Specific [place] 1.010 Urine Protein 2+ H Urine Glucose (UA) Negative Urine Ketones Negative Urine Occult Blood 1+ H Urine Nitrate Negative Urine Bilirubin Negative Urine Urobilinogen 0.2 Ur Leukocyte Esterase 2+ H Urine RBC 5-10/hpf H Urine WBC 30-100/hpf H Ur Squamous Epith Cells 1-5 /hpf Urine Bacteria None seen Ur Culture Indicated? Specimen cultured Urine Creatinine 74.5 Assessment & Plan (1) Acute renal failure: Problem details: acute renal failure, present on admission, most likely prerenal azotemia related to dehydration from diuretics. Patient with known stage III chronic renal insufficiency. She is currently into the care of a vocational trainer for this. Current visit: Yes Status: Acute (2) Hypokalemia: Problem details: Hypokalemia , present on admission. Will start her on a K rider. Will check her Mag level. Will replace accordingly. Current visit: Yes Status: Acute (3) Chronic back pain: Problem details: Chronic back pain, continue outpatient medical management Current visit: Yes Status: Acute (4) Dehydration: Problem details: dehydration, present on admission, will continue IV hydration Current visit: Yes Status: Acute (5) History of nephrolithiasis: Problem details: history of nephrolithiasis. Patient is currently under treatment by Nephrology for this. Will hold her chlorthalidone at this time but continue her other usual medications. She will follow-up with Nephrology as an outpatient. Current visit: Yes Status: Acute Assessment & Plan narrative: Patient is a full code will note that her record accordingly. Quality VTE Deep Vein Thrombosis/Pulmonary Embolism Present on Admission: No
--- NOTE | 2018-07-28 13:14 | P.HP_ITS ---
History of Present Illness Date Patient Seen: 07/28/18 Chief complaint: SOB/DIZZY Narrative: the patient is a 52-year-old female with a history of kidney stones, migraine headaches, chronic back pain who was in her usual state of health until Friday. She reports at that time becoming very weak. Patient has a history of having low potassium. She felt that her potassium was again low. She had been drinking lots of fluid. Despite that she felt weak in her muscles had nausea felt dizzy and presented to the emergency room for evaluation. In the emergency department the patient was found to be in acute renal failure with a creatinine of 2.4. Her potassium was markedly depressed at 2.0. The patient is on chlorthalidone for treatment of nephrolithiasis. She is under the care of a lead caster for this. The patient received renal ultrasound which confirmed a nephrolithiasis. She had a urine creatinine and urine protein obtained as well. She is admitted to the hospital at this time for definitive treatment. Patient History Medical History Chronic back pain (Acute) Migraine headache (Acute) Nephrolithiasis (Acute) Surgical History History of lumbar laminectomy (Acute) Family History Mother Hypertension Father Kidney stones Social History household members: friend(s) Smoking Status: Current every day smoker alcohol intake: never Family & Social History Family History Mother Hypertension Father Kidney stones Social History: household members friend(s) Prior Living Arrangements House Safety & Behavioral: Feels Safe in Current Yes Environment Been Physically Hurt or No Threatened By a Person Suicidal Ideation Description None Tobacco & Substance use: Tobacco type cigarettes Smoking Status Current every day smoker alcohol intake never Substance Use Type does not use Meds Home Medications Medication Instructions Recorded Confirmed Type potassium citrate [Urocit-K 10] 10 meq PO QDAY #0 07/10/12 07/28/18 History chlorthalidone 25 mg PO DAILY 07/28/18 07/28/18 History clonazepam 0.5 mg PO DAILY 07/28/18 07/28/18 History hydroxyzine HCl 25 mg PO BID 07/28/18 07/28/18 History levothyroxine 50 mcg PO DAILY 07/28/18 07/28/18 History methocarbamol 500 mg PO Q8H 07/28/18 07/28/18 History metronidazole [Flagyl] 500 mg PO Q8H 07/28/18 07/28/18 History morphine 15 mg PO Q8H 07/28/18 07/28/18 History oxycodone 10 mg PO Q4-6H PRN MDD 4 07/28/18 07/28/18 History sevelamer carbonate 800 mg PO BID 07/28/18 07/28/18 History sumatriptan succinate 100 mg PO PRN PRN MDD 2 07/28/18 07/28/18 History Allergies Allergy/AdvReac Type Severity Reaction Status Date / Time ertapenem [ERTAPENEM] Allergy Unknown Verified 07/28/18 08:15 iodine [IODINE] Allergy Unknown DRINKING Verified 07/28/18 08:15 CONTRAST GIVES HER WELTS prednisone [PREDNISONE] Allergy Unknown GETS Verified 07/28/18 08:15 ENRAGED AND SKIN IS CRAWLING Review of Systems Review of Systems All systems reviewed & are unremarkable except as noted in HPI and below Exam Vital Signs (past 8 hours): - 07/28/18 08:15 07/28/18 12:15 Temperature 97.6 F 97.8 F Pulse Rate 96 H 74 Respiratory Rate 18 16 Blood Pressure 101/78 96/64 Pulse Oximetry 100 100 Oxygen Delivery Method Room Air Narrative Exam Narrative: HEENT: Normocephalic atraumatic, extraocular muscles are intact, oropharynx is clear, neck is supple, lungs: Clear to auscultation cardiac exam: Regular rate and rhythm normal S1 and S2 no murmurs rubs or gallops abdomen: Soft nontender nondistended no appreciable hepatosplenomegaly extremities: No edema neuro exam: Patient is awake alert and appropriate. She has no active hallucinations. Her cranial nerves are intact. Strength is symmetric and equal. Sensation is grossly intact. Reflexes are brisk and equal. Skin: No lesion psychiatric exam: Normal Objective Labs Result Diagrams: 07/28/18 08:15 07/28/18 08:15 Labs: Laboratory Results - last 24 hr 07/28/18 07/28/18 07/28/18 08:05 08:15 08:15 WBC 10.6 RBC 4.87 Hgb 15.0 Hct 43.6 MCV 89.7 MCH 30.8 MCHC 34.3 RDW 13.9 Plt Count 479 H Neut % (Auto) 63.3 Lymph % (Auto) 23.[address] [facility] % (Auto) 8.5 Eos % (Auto) 3.3 Baso % (Auto) 1.3 Neut # (Auto) 6700 Lymph # (Auto) 2500 [facility] # (Auto) 900 Eos # (Auto) 300 Baso # (Auto) 100 Sodium 138 Potassium 2.0 L* Chloride 104 Carbon Dioxide 19 L BUN 46 H Creatinine 2.40 H Estimated GFR 21.4 L BUN/Creatinine Ratio 19.2 Glucose 170 H Calcium 10.3 H Magnesium 2.8 H Total Bilirubin 0.7 AST 18 ALT 19 Alkaline Phosphatase 64 Total Creatine Kinase 181 H CK-MB (CK-2) 3.66 H CK-MB (CK-2) Rel Index 2.0 Troponin I < 0.012 Total Protein 8.3 H Albumin 4.5 Globulin 3.8 Albumin/Globulin Ratio 1.2 Lipase 160 Urine Color Urine Appearance Urine pH Ur Specific [place] Urine Protein Urine Glucose (UA) Urine Ketones Urine Occult Blood Urine Nitrate Urine Bilirubin Urine Urobilinogen Ur Leukocyte Esterase Urine RBC Urine WBC Ur Squamous Epith Cells Urine Bacteria Ur Culture Indicated? Urine Creatinine 07/28/18 07/28/18 08:15 08:15 WBC RBC Hgb Hct MCV MCH MCHC RDW Plt Count Neut % (Auto) Lymph % (Auto) [facility] % (Auto) Eos % (Auto) Baso % (Auto) Neut # (Auto) Lymph # (Auto) [facility] # (Auto) Eos # (Auto) Baso # (Auto) Sodium Potassium Chloride Carbon Dioxide BUN Creatinine Estimated GFR BUN/Creatinine Ratio Glucose Calcium Magnesium Total Bilirubin AST ALT Alkaline Phosphatase Total Creatine Kinase CK-MB (CK-2) CK-MB (CK-2) Rel Index Troponin I Total Protein Albumin Globulin Albumin/Globulin Ratio Lipase Urine Color Yellow Urine Appearance Clear Urine pH 6.5 Ur Specific [place] 1.010 Urine Protein 2+ H Urine Glucose (UA) Negative Urine Ketones Negative Urine Occult Blood 1+ H Urine Nitrate Negative Urine Bilirubin Negative Urine Urobilinogen 0.2 Ur Leukocyte Esterase 2+ H Urine RBC 5-10/hpf H Urine WBC 30-100/hpf H Ur Squamous Epith Cells 1-5 /hpf Urine Bacteria None seen Ur Culture Indicated? Specimen cultured Urine Creatinine 74.5 Assessment & Plan (1) Acute renal failure: Problem details: acute renal failure, present on admission, most likely prerenal azotemia related to dehydration from diuretics. Patient with known stage III chronic renal insufficiency. She is currently into the care of a lead caster for this. Current visit: Yes Status: Acute (2) Hypokalemia: Problem details: Hypokalemia , present on admission. Will start her on a K rider. Will check her Mag level. Will replace accordingly. Current visit: Yes Status: Acute (3) Chronic back pain: Problem details: Chronic back pain, continue outpatient medical management Current visit: Yes Status: Acute (4) Dehydration: Problem details: dehydration, present on admission, will continue IV hydration Current visit: Yes Status: Acute (5) History of nephrolithiasis: Problem details: history of nephrolithiasis. Patient is currently under treatment by Nephrology for this. Will hold her chlorthalidone at this time but continue her other usual medications. She will follow-up with Nephrology as an outpatient. Current visit: Yes Status: Acute Assessment & Plan narrative: Patient is a full code will note that her record accordingly. Quality VTE Deep Vein Thrombosis/Pulmonary Embolism Present on Admission: No
[2018-07-28] MEDS: SODIUM CHLORIDE 0.9% 1,000 ML 150 ML IV ×2 (13:46→19:53)
[2018-07-28] MEDS: metroNIDAZOLE 500 MG TABLET PO ×2 (13:49→19:47)
[2018-07-28] MEDS: MORPHINE ER 15 MG TABLET PO (14:11)
[2018-07-28] MEDS: ENOXAPARIN 40 MG/0.4 ML SYRINGE SUBCUT (14:12)
[2018-07-28] MEDS: METHOCARBAMOL 500 MG TABLET PO (14:14)
[2018-07-28] MEDS: OXYCODONE IR 10 MG TABLET PO ×2 (14:26→19:51)
[2018-07-28 18:14] LABS: Magnesium 2.5 mg/dL (1.6-2.3)
[2018-07-28] MEDS: DOCUSATE 100 MG CAPSULE PO (19:47)
[2018-07-28] MEDS: clonazePAM 0.5 MG TABLET PO (19:47)
--- NOTE | 2018-07-28 23:31 | PC.NURSE ---
Jasmyn shift note: Clarified IVF order with Min POTTER
--- NOTE | 2018-07-29 02:15 | PC.NURSE ---
2300- Pt sleeping, asked to be left alone at this time. Told pt I was there to do an assessment and I was her nurse and she asked me to leave. Will come back to check. 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 Checked manually and slightly low at 92/55 although pt states this is normal for her. Denies dizziness or difficulty breathing. 0130- Back to assess pt's BP and she refused. Will come back later to assess.
[2018-07-29 02:51] VITALS: BP 114/69; PULSE 75; RESP 20; TEMP 36.6; O2SAT 100
[2018-07-29] MEDS: MORPHINE ER 15 MG TABLET PO ×2 (02:52→12:09)
[2018-07-29] MEDS: SODIUM CHLORIDE 0.9% 1,000 ML 150 ML IV (03:44)
[2018-07-29 05:48] LABS: Add Manual Diff / Slide Review NO; Basophils Absolute Auto 100 /uL (0-100); Basophils Percent Auto 1.3 % (0-2); Eosinophils Absolute Auto 300 /uL (0-450); Eosinophils Percent Auto 3.6 % (2-4); Hematocrit 38.1 % (36-46); Hemoglobin 12.9 g/dL (12.0-16.0); Lymphocytes Absolute Auto 3300 /uL (1100-4500); Lymphocytes Percent Auto 37.9 % (25-40); Mean Corpuscular HGB Conc 33.8 % (30-36); Mean Corpuscular Hemoglobin 30.5 PG (26-34); Mean Corpuscular Volume 90.1 fL (80-100); Monocytes Absolute Auto 700 /uL (0-900); Monocytes Percent Auto 8.4 % (3-14); Neutrophils Absolute Auto 4200 /uL (1500-7000); Neutrophils Percent Auto 48.8 % (50-75); Platelet Count 410 X10^3/uL (150-400); Red Blood Cell Count 4.23 X10^6/uL (4.0-5.2); Red Cell Distribution Width 14.3 % (11.6-14.8); White Blood Cell Count 8.6 X10^3/uL (4.5-11.0)
[2018-07-29 05:55] LABS: BUN Creatinine Ratio 18.9 (6-22); Blood Urea Nitrogen 34 mg/dL (7-17); Calcium 9.2 mg/dL (8.4-10.2); Carbon Dioxide 19 mmol/L (22-32); Chloride 113 mmol/L (98-107); Estimated Glomerular Filt Rate 29.8 mL/min (>60); Glucose 102 mg/dL (70-100); HEMOLYSIS < 15 (0-50); Sodium 140 mmol/L (137-145)
[2018-07-29 06:00] VITALS: BP 90/58; PULSE 77; RESP 16; TEMP 36.4; O2SAT 98
[2018-07-29] MEDS: OXYCODONE IR 10 MG TABLET PO (06:22)
[2018-07-29] MEDS: LEVOTHYROXINE 50 MCG TABLET PO (06:22)
[2018-07-29] MEDS: METHOCARBAMOL 500 MG TABLET PO (06:22)
[2018-07-29 06:24] LABS: Potassium 2.4 mmol/L (3.4-5.1)
[2018-07-29] MEDS: POTASSIUM CHLORIDE 20 MEQ/15 ML UDC 60 MEQ PO (06:50)
[2018-07-29] MEDS: ENOXAPARIN 30 MG/0.3 ML SYRINGE SUBCUT (08:01)
[2018-07-29] MEDS: DOCUSATE 100 MG CAPSULE PO (08:01)
[2018-07-29] MEDS: metroNIDAZOLE 500 MG TABLET PO (08:01)
[2018-07-29 08:25] VITALS: O2SAT 98
--- NOTE | 2018-07-29 09:15 | CM.DANOTE ---
DCP: Case received, EMR reviewed and met with patient. Introduced self and role. DCP template completed with information currently available. Patient is a 52 year old female who admitted yesterday morning to the care of the surgical team. PCP: Dr. Broderick. Payer: Confirmed: [facility]. Patient came to hospital with symptoms of dizziness and weakness. Patient has history of state 3 chronic renal insufficiency. Patient was noted to be in acute kidney failure. She does see a laundry tub maker as well. Patient was also noted to have hypokalemia. Met with patient. She stated, she knows when her potassium levels are low. Patient lives in basement apartment, friends are upstairs. She is independent, drives. She is also a smoker. She is hopeful that she can go home today. P: DCP to continue to follow for any needs. Should be able to return home when stable. Tia Joaquin RN/Stunner
[2018-07-29 10:00] VITALS: BP 97/63; PULSE 63; RESP 16; TEMP 36.6; O2SAT 98
[2018-07-29] MEDS: POTASSIUM CHLORIDE 20 MEQ TAB 40 MEQ PO (11:03)
[2018-07-29] MEDS: LORazepam 1 MG TABLET PO (11:03)
[2018-07-29 11:24] LABS: BUN Creatinine Ratio 21.3 (6-22); Blood Urea Nitrogen 32 mg/dL (7-17); Calcium 8.8 mg/dL (8.4-10.2); Carbon Dioxide 19 mmol/L (22-32); Chloride 115 mmol/L (98-107); Estimated Glomerular Filt Rate 36.8 mL/min (>60); Glucose 105 mg/dL (70-100); HEMOLYSIS 25 (0-50); Sodium 139 mmol/L (137-145)
[2018-07-29] MEDS: levoFLOXacin 250 MG TABLET PO (12:09)
--- NOTE | 2018-07-29 13:14 | P.DS_ITS ---
History of Present Illness Chief complaint: SOB/DIZZY Narrative: the patient is a 52-year-old female with a history of kidney stones, migraine headaches, chronic back pain who was in her usual state of health until Friday. She reports at that time becoming very weak. Patient has a history of having low potassium. She felt that her potassium was again low. She had been drinking lots of fluid. Despite that she felt weak in her muscles had nausea felt dizzy and presented to the emergency room for evaluation. In the emergency department the patient was found to be in acute renal failure with a creatinine of 2.4. Her potassium was markedly depressed at 2.0. The patient is on chlorthalidone for treatment of nephrolithiasis. She is under the care of a windows vmware administrator for this. The patient received renal ultrasound which confirmed a nephrolithiasis. She had a urine creatinine and urine protein obtained as well. She is admitted to the hospital at this time for definitive treatment. Discharge Providers Date of admission: 07/28/18 09:33 Discharge Date: 07/29/18 Primary care physician: Candy Broderick DO Consults: 07/28/18 11:34 Consult to Dietitian, Adult Routine Comment: Reason For Exam: feels starved; kidney disease and weight loss Discharge provider: Jessa Pedersen MD Summary Discharge Diagnosis: Hypokalemia Acute on Chronic Renal Failure Stage 3 Chronic Renal Failure Nephrolithiasis Anxiety disorder Acute Protein Calorie Malnutrition Metabolic Acidosis, suspect RTA Hospital Course: Patient was admitted to the hospital for weakness, hypokalemia, and renal failure. She was given IV hydration and replacement of her potassium. Her potassiium is still low at 3.0 but she is insisting to leave the hospital. Patient will be given a prescription for potassium and discharged home Status at Discharge Cognitive/behavioral status at discharge: oriented Functional status at discharge: independent ambulation Overall status at discharge: patient is back to baseline Time Spent with Patient Less than 30 minutes Exam Vital Signs (past 8 hours): - 07/29/18 06:00 07/29/18 08:25 07/29/18 10:00 Temperature 97.5 F L 97.8 F Pulse Rate 77 63 Respiratory Rate 16 16 Blood Pressure 90/58 L 97/63 Pulse Oximetry 98 98 98 Oxygen Delivery Method Room Air Oxygen Flow Rate 0 Narrative Exam Narrative: agitated female, anxious wanting to leave Lungs: clear to auscultation CV: RRR nl Sl S2 Abd: soft/ non tender/ non distended Ext: no edema Objective Labs Result Diagrams: 07/29/18 05:10 07/29/18 11:05 Labs: Laboratory Results - last 24 hr 07/28/18 07/29/18 07/29/18 17:26 05:10 05:10 WBC 8.6 RBC 4.23 Hgb 12.9 Hct 38.1 MCV 90.1 MCH 30.5 MCHC 33.8 RDW 14.3 Plt Count 410 H Neut % (Auto) 48.8 L Lymph % (Auto) 37.9 [place] % (Auto) 8.4 Eos % (Auto) 3.6 Baso % (Auto) 1.3 Neut # (Auto) 4200 Lymph # (Auto) 3300 [place] # (Auto) 700 Eos # (Auto) 300 Baso # (Auto) 100 Sodium 140 Potassium 2.4 L* Chloride 113 H Carbon Dioxide 19 L BUN 34 H Creatinine 1.80 H Estimated GFR 29.8 L BUN/Creatinine Ratio 18.9 Glucose 102 H Calcium 9.2 Magnesium 2.5 H 07/29/18 11:05 WBC RBC Hgb Hct MCV MCH MCHC RDW Plt Count Neut % (Auto) Lymph % (Auto) [place] % (Auto) Eos % (Auto) Baso % (Auto) Neut # (Auto) Lymph # (Auto) [place] # (Auto) Eos # (Auto) Baso # (Auto) Sodium 139 Potassium 3.0 L Chloride 115 H Carbon Dioxide 19 L BUN 32 H Creatinine 1.50 H Estimated GFR 36.8 L BUN/Creatinine Ratio 21.3 Glucose 105 H Calcium 8.8 Magnesium Discharge Plan Discharge Plan Discharge Problem: Hypokalemia, Dehydration, Renal failure Patient Disposition: Home Discharge comment: follow up with your PCP in the next 2 days Discharge Med Rec/Prescriptions Prescriptions: New levofloxacin 250 mg Tablet 250 mg PO DAILY Qty: 5 RF: 0 potassium citrate 10 mEq (1,080 mg) tablet extended release 20 meq PO TID 3 Days Qty: 18 RF: 0 Continued methocarbamol 500 mg tablet 500 mg PO Q8H RF: 0 sumatriptan succinate 100 mg tablet 100 mg PO PRN MDD 2 PRN (Reason: Migraine Headache) RF: 0 clonazepam 0.5 mg tablet 0.5 mg PO DAILY RF: 0 levothyroxine 50 mcg tablet 50 mcg PO DAILY RF: 0 hydroxyzine HCl 25 mg tablet 25 mg PO BID RF: 0 morphine 15 mg tablet extended release 15 mg PO Q8H RF: 0 sevelamer carbonate 800 mg tablet 800 mg PO BID RF: 0 oxycodone 10 mg tablet 10 mg PO Q4-6H MDD 4 PRN (Reason: pain) RF: 0 metronidazole [Flagyl] 500 MG tablet 500 mg PO Q8H RF: 0 clindamycin phosphate 1 % gel 1 applic topical DIRECTED RF: 0 Discontinued potassium citrate [Urocit-K 10] 10 MEQ tablet extended release 10 meq PO QDAY Qty: 0 RF: 0 chlorthalidone 25 mg tablet 25 mg PO DAILY RF: 0 Follow up/Referrals: Candy Broderick DO [Primary Care Provider] - Provider Discharge Instructions Diet: Diet as Tolerated Activity: as tolerated Discharge Data Primary Care Provider: Candy Broderick Attending Provider: Jessa Pedersen Admit Date/Time: 07/28/18 09:33 Discharge Interventions Interventions: Discharge assessment Last Done: 07/29/18 13:09 Quality VTE Deep Vein Thrombosis/Pulmonary Embolism Present on Admission: No
--- NOTE | 2018-07-29 13:28 | PC.NURSE ---
Pt ready for discharge home with sister. HL removed. Prescriptions sent to [facility]. Went over d/c instructions with Pt-discussed d/c meds, time of last dose, stroke education, and follow up appointment.
[2018-07-29 14:19] LABS: Ionized Calcium 5.3 mg/dL (4.8-5.6)
== END 2018-07-29 13:30 | disposition home or self-care (01) ==
LOC: ED 09:05 → AC 10:12
PROVIDERS: Admitting Provider Internal Medicine; Emergency Provider Emergency Medicine; Family Provider Specialist; PCP Family Medicine; Visit Provider Internal Medicine
DX: N17.9 Acute kidney failure, unspecified (principal); R42 Dizziness and giddiness; R06.02 Shortness of breath; Z87.442 Personal history of urinary calculi; G89.29 Other chronic pain; M54.9 Dorsalgia, unspecified; E86.0 Dehydration; E87.6 Hypokalemia; F17.210 Nicotine dependence, cigarettes, uncomplicated
CPT/HCPCS: 36415; 36591; 71045; 76770; 80048; 80053; 81001; 82330; 82550; 82553; 82570; 83690; 83735; 84484; 85025; 87077; 87086; 87186; 93005; 93041; 96365; 96366; 99285; G0378; J1650; J3480

== ENCOUNTER → 2018-08-04 17:11 | Outpatient (CLI) | payer OTHER, SELFPAY ==
[2018-07-28 11:15] VITALS: BMI 22.1
[2018-08-04 18:00] LABS: Hemoglobin A1C% w Est Avg Glu 5.5 % (4.0-6.0)
[2018-08-04 18:06] LABS: BUN Creatinine Ratio 13.9 (6-22); Blood Urea Nitrogen 25 mg/dL (7-17); Calcium 9.7 mg/dL (8.4-10.2); Carbon Dioxide 27 mmol/L (22-32); Chloride 101 mmol/L (98-107); Estimated Glomerular Filt Rate 29.8 mL/min (>60); Glucose 84 mg/dL (70-100); HEMOLYSIS < 15 (0-50); Sodium 136 mmol/L (137-145)
[2018-08-04 18:08] LABS: Potassium 5.8 mmol/L (3.4-5.1)
== END ==
PROVIDERS: PCP Internal Medicine; Visit Provider Internal Medicine
DX: R73.9 Hyperglycemia, unspecified (principal); E87.6 Hypokalemia
CPT/HCPCS: 36415; 80048; 83036

== ENCOUNTER → 2018-08-18 13:57 | Outpatient (CLI) | payer OTHER, SELFPAY ==
[2018-07-28 11:15] VITALS: BMI 22.1
[2018-08-18 15:37] LABS: BUN Creatinine Ratio 16.1 (6-22); Blood Urea Nitrogen 29 mg/dL (7-17); Calcium 9.7 mg/dL (8.4-10.2); Carbon Dioxide 24 mmol/L (22-32); Chloride 101 mmol/L (98-107); Estimated Glomerular Filt Rate 29.8 mL/min (>60); Glucose 88 mg/dL (70-100); HEMOLYSIS < 15 (0-50); Potassium 4.9 mmol/L (3.4-5.1); Sodium 136 mmol/L (137-145)
== END ==
PROVIDERS: PCP Internal Medicine; Visit Provider Internal Medicine
DX: E87.6 Hypokalemia (principal)
CPT/HCPCS: 36415; 80048

== ENCOUNTER → 2018-08-25 10:21 | Outpatient (CLI) | payer OTHER, SELFPAY ==
[2018-07-28 11:15] VITALS: BMI 22.1
[2018-08-25 11:29] LABS: BUN Creatinine Ratio 17.1 (6-22); Blood Urea Nitrogen 36 mg/dL (7-17); Carbon Dioxide 21 mmol/L (22-32); Chloride 105 mmol/L (98-107); Estimated Glomerular Filt Rate 24.9 mL/min (>60); Glucose 99 mg/dL (70-100); HEMOLYSIS < 15 (0-50); Potassium 3.3 mmol/L (3.4-5.1); Sodium 137 mmol/L (137-145)
== END ==
PROVIDERS: PCP Internal Medicine; Visit Provider Internal Medicine
DX: N18.4 Chronic kidney disease, stage 4 (severe) (principal)
CPT/HCPCS: 36415; 80048

== ENCOUNTER → 2018-08-27 12:04 | Outpatient (CLI) | payer OTHER, SELFPAY ==
[2018-07-28 11:15] VITALS: BMI 22.1
[2018-08-27 12:36] LABS: BUN Creatinine Ratio 18.9 (6-22); Blood Urea Nitrogen 36 mg/dL (7-17); Calcium 9.6 mg/dL (8.4-10.2); Carbon Dioxide 26 mmol/L (22-32); Chloride 101 mmol/L (98-107); Glucose 112 mg/dL (70-100); HEMOLYSIS < 15 (0-50); Potassium 3.8 mmol/L (3.4-5.1); Sodium 138 mmol/L (137-145)
== END ==
PROVIDERS: PCP Internal Medicine; Visit Provider Internal Medicine
DX: E87.6 Hypokalemia (principal)
CPT/HCPCS: 36415; 80048

== ENCOUNTER → 2018-09-14 10:04 | Outpatient (CLI) | payer OTHER, SELFPAY ==
[2018-07-28 11:15] VITALS: BMI 22.1
--- NOTE | 2018-09-14 | DI.CT.S_ITS ---
PROCEDURE: CT KIDNEY URETER BLADDER (KUB) INDICATIONS: RECURRENT UTI TECHNIQUE: Noncontrast 5 mm thick sections acquired from the diaphragms to the symphysis. 5 mm thick coronal and sagittal reformats were then performed. For radiation dose reduction, the following was used: automated exposure control, adjustment of mA and/or kV according to patient size. COMPARISON: [facility], CT, CT ABDOMEN PELVIS WO CON, 12/11/2017, 12:58. [facility], US, US RENAL COMPLETE, 07/28/2018, 9:58. [facility], CT, KIDNEY/ URETER/BLADDER, 03/06/2017, 16:25. FINDINGS: Image quality: Excellent. Lung bases: Lung bases are clear. Heart size is normal. Urinary system: The right kidney is relatively diminutive compared to the contralateral side. Both kidneys demonstrate extensive medullary nephrocalcinosis. A dominant left lower pole intrarenal nonobstructing calcification measures approximately 9 mm. Slight prominence of the left renal pelvis without hydronephrosis or hydroureter. No ureteral calculi. Renal cortices are slightly lobulated bilaterally. Mild bilateral, left greater than right perinephric inflammation, chronic. The urinary bladder is decompressed. No significant wall thickening, calcification, or perivesicular inflammatory change. Other solid organs: Liver is normal in size. Mild intrahepatic biliary dilatation. No focal lesions visible without contrast. Gallbladder is surgically absent and there is moderate biliary dilatation of the common duct measuring 10 mm maximally. The pancreatic duct is mildly prominent measuring at least 5 mm in the pancreatic head. Pancreas is normal in contours. Spleen is normal in size. 8mm soft tissue nodule along the medial limb of the left adrenal gland, stable. No right adrenal nodules. Peritoneum and bowel: Unenhanced bowel loops demonstrate normal wall thickness and caliber. A moderate amount of solid stool throughout the colon. Normal appendix. No free fluid or air. Nodes and vessels: No retroperitoneal or mesenteric adenopathy by size criteria. Aorta and inferior vena cava are normal in caliber. Abdominal wall: No ventral hernias. Pelvis: No free pelvic fluid. No inguinal hernias or adenopathy. Age-appropriate uterus. No adnexal masses. Bones: No suspicious bony lesions. Fusion hardware in the lumbar spine appears intact the period and L3-4 disc spacer is present. No vertebral body compression fractures. IMPRESSION: 1. Chronic findings of medullary nephrocalcinosis and dominant calcification in the lower pole of the left kidney. 2. Mildly diminutive right renal size, chronic, but without worsening. 3. Decompressed urinary bladder. No evidence of ureteral or vesicular calcifications or inflammatory change. 4. Minimally increased intra-and extrahepatic biliary and pancreatic ductal dilatation compared to prior studies. Biliary dilatation is expected post cholecystectomy, however pancreatic duct dilatation has increased. Correlate with lab studies to determine clinical significance and consider MRCP. Dictated by: Zuri Newton M.D. on 09/14/2018 at 11:24 Approved by: Zuri Newton M.D. on 09/14/2018 at 11:37
== END ==
PROVIDERS: PCP Internal Medicine; Visit Provider Specialist
DX: N39.0 Urinary tract infection, site not specified (principal); K86.89 Other specified diseases of pancreas; E83.59 Other disorders of calcium metabolism; N29 Other disorders of kidney and ureter in diseases classified elsewhere; Z90.49 Acquired absence of other specified parts of digestive tract
CPT/HCPCS: 74176

== ENCOUNTER → 2018-10-26 11:49 | Outpatient (CLI) | payer OTHER, SELFPAY ==
[2018-07-28 11:15] VITALS: BMI 22.1
[2018-10-26 12:25] LABS: Hematocrit 46.4 % (36-46); Hemoglobin 15.4 g/dL (12.0-16.0); Mean Corpuscular HGB Conc 33.1 % (30-36); Mean Corpuscular Hemoglobin 31.3 PG (26-34); Mean Corpuscular Volume 94.5 fL (80-100); Platelet Count 316 X10^3/uL (150-400); Red Blood Cell Count 4.92 X10^6/uL (4.0-5.2); Red Cell Distribution Width 14.7 % (11.6-14.8); White Blood Cell Count 8.6 X10^3/uL (4.5-11.0)
[2018-10-26 13:12] LABS: Alanine Aminotransferase 15 IU/L (9-52); Albumin 4.3 g/dL (3.5-5.0); Albumin Globulin Ratio 1.5 (1.0-2.8); Alkaline Phosphatase 68 U/L (38-126); Aspartate Aminotransferase 15 IU/L (14-36); BUN Creatinine Ratio 14.4 (6-22); Bilirubin Total 0.4 mg/dL (0.2-1.3); Blood Urea Nitrogen 26 mg/dL (7-17); Calcium 10.1 mg/dL (8.4-10.2); Carbon Dioxide 21 mmol/L (22-32); Chloride 106 mmol/L (98-107); Estimated Glomerular Filt Rate 29.8 mL/min (>60); Globulin 2.9 g/dL (1.7-4.1); Glucose 133 mg/dL (70-100); HEMOLYSIS < 15 (0-50); Lipase 63 U/L (23-300); Potassium 3.6 mmol/L (3.4-5.1); Sodium 139 mmol/L (137-145); Total Protein 7.2 g/dL (6.3-8.2)
[2018-10-26 15:58] LABS: Creatinine Urine Random 70.9 mg/dL
[2018-10-26 16:12] LABS: Protein (Total) Urine Random 276 mg/dL (0-12); Protein Creatinine Ratio Urine 3.89 GRAM/24H
== END ==
PROVIDERS: PCP Internal Medicine; Visit Provider Internal Medicine Nephrology
DX: N05.9 Unspecified nephritic syndrome with unspecified morphologic changes (principal); D70.9 Neutropenia, unspecified; D63.1 Anemia in chronic kidney disease; R80.9 Proteinuria, unspecified; R93.5 Abnormal findings on diagnostic imaging of other abdominal regions, including retroperitoneum
CPT/HCPCS: 36415; 80048; 80076; 82570; 83690; 84156; 85027

== ENCOUNTER → 2018-11-17 12:02 | Outpatient (CLI) | payer OTHER, SELFPAY ==
[2018-07-28 11:15] VITALS: BMI 22.1
[2018-11-17 13:12] LABS: Blood Urea Nitrogen 27 mg/dL (7-17); Calcium 9.8 mg/dL (8.4-10.2); Carbon Dioxide 21 mmol/L (22-32); Chloride 105 mmol/L (98-107); Estimated Glomerular Filt Rate 36.8 mL/min (>60); Glucose 116 mg/dL (70-100); HEMOLYSIS < 15 (0-50); Potassium 3.8 mmol/L (3.4-5.1); Sodium 136 mmol/L (137-145)
[2018-11-19 14:12] LABS: Parathyroid Hormone Int 16 pg/mL (14-64)
== END ==
PROVIDERS: PCP Internal Medicine; Visit Provider Internal Medicine Nephrology
DX: I77.6 Arteritis, unspecified (principal); E83.30 Disorder of phosphorus metabolism, unspecified; N25.81 Secondary hyperparathyroidism of renal origin
CPT/HCPCS: 36415; 80048; 83970; 84100

== ENCOUNTER → 2018-12-18 11:35 | Outpatient (CLI) | payer OTHER, SELFPAY ==
[2018-07-28 11:15] VITALS: BMI 22.1
[2018-12-18 12:50] LABS: BUN Creatinine Ratio 15.4 (6-22); Blood Urea Nitrogen 20 mg/dL (7-17); Calcium 9.8 mg/dL (8.4-10.2); Carbon Dioxide 25 mmol/L (22-32); Chloride 104 mmol/L (98-107); Estimated Glomerular Filt Rate 43.2 mL/min (>60); Glucose 99 mg/dL (70-100); HEMOLYSIS < 15 (0-50); Potassium 4.1 mmol/L (3.4-5.1); Sodium 138 mmol/L (137-145)
[2018-12-18 13:19] LABS: TSH w/ Reflex to FT4 2.98 uIU/mL (0.47-4.68)
== END ==
PROVIDERS: PCP Internal Medicine; Visit Provider Internal Medicine Nephrology
DX: N05.9 Unspecified nephritic syndrome with unspecified morphologic changes (principal); E03.9 Hypothyroidism, unspecified
CPT/HCPCS: 36415; 80048; 84443

== ENCOUNTER → 2019-02-09 16:39 | Outpatient (ROUT) | payer OTHER, SELFPAY ==
[2018-07-28 11:15] VITALS: BMI 22.1
== END ==
PROVIDERS: PCP Internal Medicine; Visit Provider Internal Medicine
DX: N30.21 Other chronic cystitis with hematuria (principal); R30.0 Dysuria
CPT/HCPCS: 87086

== ENCOUNTER 2022-02-14 13:11 | Emergency (ER) | payer OTHER, SELFPAY ==
[2022-02-14 13:12] VITALS: BMI 22.1
[2022-02-14 13:14] VITALS: BP 113/78; PULSE 107; RESP 15; TEMP 36.6; O2SAT 99; BMI 24.4
--- NOTE | 2022-02-14 13:29 | ED_ITS ---
HPI - Headache <Joe Mitchell PA-C - Last Filed: 02/14/22 13:41> General Chief Complaint: Fever Stated Complaint: Sinus infection x 6 days- antibiotics not helping Time Seen by Provider: 02/14/22 13:23 Mode of arrival: Ambulatory History of Present Illness HPI Narrative: This is a 56-year-old female presenting to the emergency department due to 11 days of frontal sinus pain and pressure. States she has a very chronic history of sinus infections. States that she is had intermittent fevers and chills for the last 4 days and was ?shaking so bad? last night in bed. Also reports productive mucus. Denies any chest pain, shortness of breath, or any other concerning signs or symptoms. States she is chronically immunosuppressed due to her stage 4 chronic kidney disease and interstitial cystitis. Related Data Home Medications Medication Instructions Recorded Confirmed clindamycin phosphate 1 % topical 1 applic topical DIRECTED 07/28/18 02/26/22 gel clonazepam 0.5 mg tablet 0.5 mg PO DAILY 07/28/18 02/26/22 levothyroxine 50 mcg tablet 50 mcg PO DAILY 07/28/18 02/26/22 methocarbamol 500 mg tablet 500 mg PO Q8H 07/28/18 02/26/22 oxycodone 10 mg tablet 10 mg PO Q4-6H PRN pain 07/28/18 02/26/22 azelastine 137 mcg (0.1 %) nasal 2 spray intranasal QAM 02/26/22 02/26/22 spray aerosol cetirizine 10 mg tablet 10 mg PO QAM 02/26/22 02/26/22 fluticasone propionate 50 50 mcg intranasal QAM 02/26/22 02/26/22 mcg/actuation nasal spray,suspension nortriptyline 10 mg capsule 10 mg PO QPM 02/26/22 02/26/22 ondansetron 4 mg disintegrating 4 mg translingual PRN PRN Nausea 02/26/22 02/26/22 tablet pantoprazole 40 mg tablet,delayed 40 mg PO QAM 02/26/22 02/26/22 release solifenacin 5 mg tablet 5 mg PO BID 02/26/22 02/26/22 Allergies Allergy/AdvReac Type Severity Reaction Status Date / Time ertapenem [ERTAPENEM] Allergy Unknown Verified 02/26/22 14:07 iodine [IODINE] Allergy Unknown DRINKING Verified 02/26/22 14:07 CONTRAST GIVES HER WELTS prednisone [PREDNISONE] Allergy Unknown GETS Verified 02/26/22 14:07 ENRAGED AND SKIN IS CRAWLING Review of Systems <Joe Mitchell PA-C - Last Filed: 02/14/22 13:41> Review of Systems Narrative: GENERAL: Reports chills and fevers, denies fatigue, malaise, , sweats. HEENT: Reports sinus pain and productive cough, denies ear pain, sore throat, difficulty swallowing, dizziness. RESPIRATORY: Denies dyspnea, cough, wheezing, hemoptysis, sputum. CARDIOVASCULAR: Denies chest pain, palpitations, orthopnea, edema, GASTROINTESTINAL: Denies nausea, vomiting, abdominal pain, diarrhea, constipation, melena. : Denies dysuria, frequency, incontinence, hematuria, urinary retention. MUSCULOSKELETAL: denies weakness, joint pain, or bony pain SKIN: Denies rash, skin lesions, or other NEUROLOGIC: Denies weakness, headache, numbness, change in speech, confusion, seizures, incoordination. PSYCHIATRIC: No concerning psychosocial issues. 12 point review of systems is negative except for those stated above Patient History <Joe Mitchell PA-C - Last Filed: 02/14/22 13:41> Medical History Chronic back pain Migraine headache Nephrolithiasis Surgical History History of lumbar laminectomy Family History (Updated 07/28/18 @ 13:10 by Jessa Pedersen MD) Mother Hypertension Father Kidney stones Social History household members: family and friend(s) Smoking Status: Current every day smoker alcohol intake: never Smoking Status: Current every day smoker alcohol intake frequency: holidays/special occasions only Substance Use Type: does not use Exam <Joe Mitchell PA-C - Last Filed: 02/14/22 13:41> Narrative Exam Narrative: GENERAL: Well-developed patient, in mild distress. HEAD: Atraumatic. Normocephalic. Moderate tenderness to palpation to the frontal and maxillary sinuses bilaterally. EYES: Pupils equal round and reactive. Extraocular motions intact. No scleral icterus. No injection or drainage. ENT: Nose without bleeding, purulent drainage. Throat without erythema, tonsillar hypertrophy or exudate. Airway patent. NECK: Trachea midline. Non tender CARDIOVASCULAR: Regular rate and rhythm without murmurs, gallops, or rubs. RESPIRATORY: Clear to auscultation. Breath sounds equal bilaterally. No wheezes, rales, or rhonchi. GASTROINTESTINAL: Abdomen soft, non-tender, nondistended. EXTREMITIES: No edema or joint tenderness. BACK: Nontender without deformity or crepitance. No flank tenderness. NEURO: AOx3. SKIN: No rash or erythema of visible areas Initial Vital Signs Initial Vital Signs: Vital Signs Temperature 97.9 F 02/14/22 13:14 Pulse Rate 107 H 02/14/22 13:14 Respiratory Rate 15 02/14/22 13:14 Blood Pressure 113/78 02/14/22 13:14 Pulse Oximetry 99 02/14/22 13:14 Oxygen Delivery Method 02/14/22 13:14 <Rhett Mares MD - Last Filed: 02/27/22 22:23> Initial Vital Signs Initial Vital Signs: Vital Signs Temperature 97.9 F 02/14/22 13:14 Pulse Rate 107 H 02/14/22 13:14 Respiratory Rate 15 02/14/22 13:14 Blood Pressure 113/78 02/14/22 13:14 Pulse Oximetry 99 02/14/22 13:14 Oxygen Delivery Method 02/14/22 13:14 Course <Joe Mitchell PA-C - Last Filed: 02/14/22 13:41> Vital Signs Vital signs: Vital Signs - 8 hr 02/14/22 13:14 Temperature 97.9 F Pulse Rate 107 H Respiratory Rate 15 Blood Pressure 113/78 Pulse Oximetry 99 Oxygen Delivery Method Room Air <Rhett Mares MD - Last Filed: 02/27/22 22:23> Vital Signs Vital signs: Vital Signs - 8 hr 02/14/22 13:14 Temperature 97.9 F Pulse Rate 107 H Respiratory Rate 15 Blood Pressure 113/78 Pulse Oximetry 99 Oxygen Delivery Method Room Air MDM - Headache <Joe Mitchell PA-C - Last Filed: 02/14/22 13:41> MDM Narrative Medical decision making narrative: This is a 56-year-old female presents to the emergency department due to suspected bacterial sinusitis based on the duration, reported fevers as well as productive cough. Patient will be prescribed Augmentin at a higher dosage as recommended by up-to-date due to the history of chronic kidney disease. Patient states she is taken Augmentin in the past without any side effects. The patient has sinusitis with symptom onset greater than 10 days ago and the patient was prescribed antibiotics. Patient was prescribed an amoxicillin-based antibiotic.. The patient has sinusitis and was prescribed antibiotics because suspect be bacterial due to the duration, fevers, and purulent drainage. Also immunocompromised. Discharge Plan Departure Patient Disposition: Home Clinical Impression: Acute bacterial sinusitis Activity Restrictions/Additional Instructions: Thank you for coming to the [facility] Emergency Department today. Patient symptoms sounds like he may have bacterial sinusitis. Please take antibiotics as prescribed. I hope you feel better soon. Prescriptions: No Action methocarbamol 500 mg tablet 500 mg PO Q8H Label Comments: take 1 tablet by mouth every 8 hours clonazepam 0.5 mg tablet 0.5 mg PO DAILY Label Comments: take 1 tablet by mouth twice a day if needed for anxiety UP TO 10 DOSES. MUST LAST 30 DAYS. patient states takes once daily prn levothyroxine 50 mcg tablet 50 mcg PO DAILY oxycodone 10 mg tablet 10 mg PO Q4-6H MDD 4 PRN (Reason: pain) Label Comments: take 1 tablet by mouth every 4 to 6 hours if needed MAX 4 PER DAY clindamycin phosphate 1 % gel 1 applic topical DIRECTED cetirizine 10 mg tablet 10 mg PO QAM Label Comments: take 1 tablet by mouth once daily if needed for ALLERGIES pantoprazole 40 mg tablet,delayed release (DR/EC) 40 mg PO QAM Label Comments: take 1 tablet by mouth daily 30 MINUTES PRIOR TO A MEAL nortriptyline 10 mg capsule 10 mg PO QPM Label Comments: take 3 capsules by mouth nightly azelastine 137 mcg (0.1 %) aerosol,spray 2 spray INTRANASAL QAM Label Comments: inhale 1 spray into each nostril daily ondansetron 4 mg tablet,disintegrating 4 mg translingual PRN PRN (Reason: Nausea) Label Comments: dissolve 1 tablet ON TONGUE three times a day if needed for nausea OR vomiting fluticasone propionate 50 mcg/actuation spray,suspension 50 mcg INTRANASAL QAM Label Comments: instill 1 spray into each nostril once daily solifenacin 5 mg tablet 5 mg PO BID Label Comments: take 1 tablet by mouth twice a day Referrals: Vega Ang MD [Primary Care Provider] - Visit Report Forms: Patient Portal/API <Rhett Mares MD - Last Filed: 02/27/22 22:23> Cosign ED Attending Cosignature Attestation: I was immediately available in the department for consultation. ?This documentation has been reviewed and I agree with assessment and plan. Supervised by Rhett Mares MD
[2022-02-14 13:55] VITALS: BP 96/60; PULSE 101; RESP 24; O2SAT 95
--- NOTE | 2022-02-14 13:56 | PC.NURSE ---
assessment done by provider. pt states she has been diagnosed with sinus infection and states her pcp wont give her a different antibiotic, she has been progressively feeling worse.
== END 2022-02-14 13:55 | disposition home or self-care (01) ==
PROVIDERS: Emergency Provider Physician Assistant Medical; PCP Internal Medicine
DX: J01.90 Acute sinusitis, unspecified (principal)
CPT/HCPCS: 99281

== ENCOUNTER 2022-02-26 13:48 | Inpatient (IN) | payer OTHER, SELFPAY ==
[2022-02-26 14:06] VITALS: BP 85/54; PULSE 118; RESP 15; TEMP 36.4; O2SAT 97; BMI 24.4
[2022-02-26 14:43] LABS: Hematocrit 34.8 % (36-46); Hemoglobin 11.5 g/dL (12.0-16.0); Mean Corpuscular Hemoglobin 30.5 PG (26-34); Mean Corpuscular Volume 92.4 fL (80-100); Platelet Count 353 X10^3/uL (150-400); Red Blood Cell Count 3.77 X10^6/uL (4.0-5.2); Red Cell Distribution Width 14.7 % (11.6-14.8)
[2022-02-26 14:44] LABS: Add Manual Diff / Slide Review YES; White Blood Cell Count 34.9 X10^3/uL (4.5-11.0)
[2022-02-26 14:49] LABS: Neutrophils Absolute Manual 31759 /uL (3000-5900); RBC Morphology Normal Morphology; Total Cells Counted 100
--- NOTE | 2022-02-26 14:58 | DI.RAD.S_ITS ---
PROCEDURE: XR CHEST 1V INDICATIONS: Palpitations TECHNIQUE: One view of the chest was acquired. COMPARISON: [facility], CR, XR CHEST 1V, 07/28/2018, 8:23. FINDINGS: Surgical changes and devices: None. Lungs and pleura: Lungs are clear. No pleural effusions or pneumothorax. Mediastinum: Mediastinal contours appear normal. Heart size is normal. Bones and chest wall: No suspicious bony lesions. Overlying soft tissues appear unremarkable. IMPRESSION: No acute pulmonary process. Dictated by: Chloe Nagel M.D. on 02/26/2022 at 15:22 Approved by: Chloe Nagel M.D. on 02/26/2022 at 15:23
--- NOTE | 2022-02-26 15:07 | DI.CT.S_ITS ---
PROCEDURE: CT ABDOMEN PELVIS WO CON INDICATIONS: Fever and abdominal pain TECHNIQUE: Axial sections were acquired from the lung bases to the pubic symphysis. Coronal and sagittal reformats were performed. For radiation dose reduction, the following was used: automated exposure control, adjustment of mA and/or kV according to patient size. COMPARISON: [facility], CT, CT KIDNEY URETER BLADDER (KUB), 09/14/2018, 10:16. FINDINGS: Image quality: Excellent. Lung bases: Unremarkable. Heart: No significant findings. URINARY: Right Kidney: Innumerable areas of calcification are present within the kidney with the largest calcifications in the superior renal pole ranging in size from 3-4 mm. There is no obstruction. Right Ureter: No hydroureter. Left Kidney: The left kidney is markedly hypertrophied with innumerable calcifications. The largest range in size from 3-5 mm, Hounsfield units 530. Partially calcified renal cyst is noted. There is perinephric stranding. Mild hydronephrosis. It is noted that the left kidney was hypertrophy in 2019 although more prominent on current exam. Left Ureter: No hydroureter. No visualized ureteral stones. Bladder: Normal wall thickness. No stones. ABDOMEN: Liver: Liver is enlarged measuring 22.3 cm. Gallbladder: Removed. Biliary ducts: Unremarkable. Pancreas: Unremarkable. Spleen: Unremarkable. Adrenal Glands: Unremarkable. Stomach and Bowel: Stomach, small bowel loops, and colon are nonobstructive. There is thickening and inflammatory change within a loop of bowel immediately adjacent to the left kidney. Peritoneum: No abnormal intraperitoneal fluid. No free air. Ventral Wall: No hernia. Abdominal Nodes: No enlarged retroperitoneal or mesenteric lymph nodes. Vessels: Aorta and inferior vena cava are normal in size. PELVIS: Pelvic Organs: Unremarkable. Pelvic Nodes: Unremarkable. Miscellaneous: No inguinal hernias are seen. Bones: Unremarkable. IMPRESSION: Marked hypertrophy as well as perinephric stranding and mild hydronephrosis of the left kidney. In addition, there is inflammatory change and thickening of the adjacent bowel loop. Inflammatory changes are suspected to be primarily related to kidney with secondary colonic change. However, evaluation is limited without IV contrast as hypertrophy and inflammation could be secondary to pyelonephritis. Additionally, hematoma cannot be excluded. Contrast study is recommended for further evaluation. Dictated by: Chloe Nagel M.D. on 02/26/2022 at 15:37 Approved by: Chloe Nagel M.D. on 02/26/2022 at 15:47
--- NOTE | 2022-02-26 15:17 | ED.CHESTPAIN ---
HPI - Chest Pain General Chief Complaint: Chest Pain Stated Complaint: abd pain x4days, sleeping,red vomiting after eatin Time Seen by Provider: 02/26/22 14:48 Source: patient Mode of arrival: Ambulatory Related Data Home Medications Medication Instructions Recorded Confirmed clindamycin phosphate 1 % topical 1 applic topical DIRECTED 07/28/18 01/21/19 gel clonazepam 0.5 mg tablet 0.5 mg PO DAILY 07/28/18 01/21/19 hydroxyzine HCl 25 mg tablet 25 mg PO BID 07/28/18 01/21/19 levothyroxine 50 mcg tablet 50 mcg PO DAILY 07/28/18 01/21/19 methocarbamol 500 mg tablet 500 mg PO Q8H 07/28/18 01/21/19 metronidazole 500 mg tablet 500 mg PO Q8H 07/28/18 01/21/19 (Flagyl) morphine 15 mg tablet,extended 15 mg PO Q8H 07/28/18 07/28/18 release oxycodone 10 mg tablet 10 mg PO Q4-6H PRN pain 07/28/18 01/21/19 sevelamer carbonate 800 mg tablet 800 mg PO BID 07/28/18 07/28/18 sumatriptan succinate 100 mg tablet 100 mg PO PRN PRN Migraine Headache 07/28/18 01/21/19 Previous Rx's Medication Instructions Recorded levofloxacin 250 mg tablet 250 mg PO DAILY #5 tabs 07/29/18 Allergies Allergy/AdvReac Type Severity Reaction Status Date / Time ertapenem [ERTAPENEM] Allergy Unknown Verified 02/26/22 14:07 iodine [IODINE] Allergy Unknown DRINKING Verified 02/26/22 14:07 CONTRAST GIVES HER WELTS prednisone [PREDNISONE] Allergy Unknown GETS Verified 02/26/22 14:07 ENRAGED AND SKIN IS CRAWLING Patient History Medical History (Updated 02/26/22 @ 17:10 by Gerson Romano MD) Chronic back pain Migraine headache Nephrolithiasis Surgical History (Updated 07/28/18 @ 13:10 by Jessa Pedersen MD) History of lumbar laminectomy Family History (Updated 07/28/18 @ 13:10 by Jessa Pedersen MD) Mother Hypertension Father Kidney stones Social History household members: friend(s) Smoking Status: Current some day smoker alcohol intake: never Smoking Status: Current some day smoker alcohol intake frequency: holidays/special occasions only Substance Use Type: does not use Exam Initial Vital Signs Initial Vital Signs: Vital Signs Temperature 97.6 F 02/26/22 14:06 Pulse Rate 118 H 02/26/22 14:06 Respiratory Rate 15 02/26/22 14:06 Blood Pressure 85/54 L 02/26/22 14:06 Pulse Oximetry 97 02/26/22 14:06 Oxygen Delivery Method 02/26/22 14:06 Course Course Course Narrative: Patient has sepsis clearly but no elevation in her lactate. Blood pressure responded nicely to volume expansion with crystalloids. Empiric antibiotics given while we were waiting for better diagnosis. CT shows probably pyelonephritis on the left. Renal function is quite poor hopefully this is related to her sepsis and will bounce back to significant degree. Will admit to Dr. Hatfield who kindly accepts the admission. Orders Ordered: ED Orders 02/26/22 14:14 EKG-12 Lead Stat 02/26/22 14:35 Complete Blood Count AUTO DIFF Stat Type and Screen Stat 02/26/22 14:57 COVID19 -Nasal RAPID/Pre-Proc Stat 02/26/22 14:58 XR chest 1V Stat 02/26/22 15:00 UA dip and micro [Urinalysis and Microscopic] Stat 02/26/22 15:07 CT abdomen pelvis wo con Stat 02/26/22 15:26 Blood Culture Stat 02/26/22 15:42 Comprehensive Metabolic Panel Stat Lactate (Lactic Acid) Stat Lipase Stat Magnesium Stat Partial Thromboplastin Time Stat Prothrombin Time INR Stat Troponin I Stat Sodium Chloride (Normal Saline 0.9%) 2,449.41 mls @ 816.47 mls/hr 30 ml/kg infuse over 3 hr (2449.41 ml) IV NOW ONE Stop: 02/26/22 18:16 Discontinued Medications Acetaminophen (Acetaminophen 325 Mg Tablet) 975 mg PO NOW ONE Stop: 02/26/22 14:57 Last Admin: 02/26/22 15:46 Dose: 975 mg Documented By: NR Sodium Chloride (Normal Saline 0.9%) 1,000 mls @ 2,000 mls/hr IV BOLUS ONE Stop: 02/26/22 15:25 Last Admin: 02/26/22 15:45 Dose: 1,000 mls/hr Documented By: NR Vancomycin HCl (Vancomycin) 1,000 mg in 200 mls @ 200 mls/hr IV NOW ONE Stop: 02/26/22 16:16 Last Admin: 02/26/22 16:22 Dose: 200 mls/hr Documented By: NR Piperacillin Sod/Tazobactam (Sod 4.5 gm/ Sodium Chloride) 100 mls @ 200 mls/hr IV NOW ONE Stop: 02/26/22 15:21 Last Infusion: 02/26/22 16:21 Dose: 0 mls/hr Documented By: Admin: 02/26/22 15:45 Dose: 200 mls/hr Documented By: NR Ketorolac Tromethamine (Ketorolac 30 Mg/Ml Vial) 15 mg IV NOW ONE Stop: 02/26/22 14:57 Last Admin: 02/26/22 16:22 Dose: Not Given Documented By: NR Vital Signs Vital signs: Vital Signs - 8 hr 02/26/22 14:06 Temperature 97.6 F Pulse Rate 118 H Respiratory Rate 15 Blood Pressure 85/54 L Pulse Oximetry 97 Oxygen Delivery Method Room Air MDM - Chest Pain Lab Data Result diagrams: 02/26/22 14:35 02/26/22 15:42 Labs: Lab Results 02/26/22 02/26/22 02/26/22 Range/Units 14:35 15:42 15:42 WBC 34.9 H* (4.5-11.0) X10^3/uL RBC 3.77 L (4.0-5.2) X10^6/uL Hgb 11.5 L (12.0-16.0) g/dL Hct 34.8 L (36-46) % MCV 92.4 (80-100) fL MCH 30.5 (26-34) PG MCHC 33.0 (30-36) % RDW 14.7 (11.6-14.8) % Plt Count 353 (150-400) X10^3/uL Neut % (Auto) Not Reportable Lymph % (Auto) Not Reportable Williamson % (Auto) Not Reportable Eos % (Auto) Not Reportable Baso % (Auto) Not Reportable Lymph # (Auto) Not Reportable Williamson # (Auto) Not Reportable Baso # (Auto) Not Reportable Total Counted 100 Seg Neutrophils % 91.0 H (38-70) % Lymphocytes % (Manual) 3.0 L (25-45) % Atypical Lymphs % 1.0 H ( - 0) % Monocytes % (Manual) 5.0 (2-11) % Neutrophils # (Manual) 54479 H (8964-0280) /uL RBC Morphology Normal morphology PT 13.7 H (10.1-12.7) SECONDS INR 1.2 (0.9-1.3) APTT 30 (26-36) SECONDS Sodium 130 L (137-145) mmol/L Potassium 4.0 (3.4-5.1) mmol/L Chloride 101 (98-107) mmol/L Carbon Dioxide 12 L (22-32) mmol/L BUN 64 H (7-17) mg/dL Creatinine 4.23 H (0.52-1.04) mg/dL Estimated GFR 12 L (>60) mL/min BUN/Creatinine Ratio 15.1 (6-22) Glucose 114 H (70-100) mg/dL Lactate (0.7-2.1) mmol/L Calcium 8.2 L (8.4-10.2) mg/dL Magnesium (1.6-2.3) mg/dL Total Bilirubin 1.3 (0.2-1.3) mg/dL AST 192 H (14-36) IU/L ALT 112 H (<35) IU/L Alkaline Phosphatase 368 H (38-126) U/L Troponin I (0.01-0.034) ng/mL Total Protein 7.2 (6.3-8.2) g/dL Albumin 3.2 L (3.5-5.0) g/dL Globulin 4.0 (1.7-4.1) g/dL Albumin/Globulin Ratio 0.8 L (1.0-2.8) Lipase 02/26/22 02/26/22 02/26/22 Range/Units 15:42 15:42 15:42 WBC (4.5-11.0) X10^3/uL RBC (4.0-5.2) X10^6/uL Hgb (12.0-16.0) g/dL Hct (36-46) % MCV (80-100) fL MCH (26-34) PG MCHC (30-36) % RDW (11.6-14.8) % Plt Count (150-400) X10^3/uL Neut % (Auto) Lymph % (Auto) Williamson % (Auto) Eos % (Auto) Baso % (Auto) Lymph # (Auto) Williamson # (Auto) Baso # (Auto) Total Counted Seg Neutrophils % (38-70) % Lymphocytes % (Manual) (25-45) % Atypical Lymphs % ( - 0) % Monocytes % (Manual) (2-11) % Neutrophils # (Manual) (7456-6542) /uL RBC Morphology PT (10.1-12.7) SECONDS INR (0.9-1.3) APTT (26-36) SECONDS Sodium (137-145) mmol/L Potassium (3.4-5.1) mmol/L Chloride (98-107) mmol/L Carbon Dioxide (22-32) mmol/L BUN (7-17) mg/dL Creatinine (0.52-1.04) mg/dL Estimated GFR (>60) mL/min BUN/Creatinine Ratio (6-22) Glucose (70-100) mg/dL Lactate 0.7 (0.7-2.1) mmol/L Calcium (8.4-10.2) mg/dL Magnesium (1.6-2.3) mg/dL Total Bilirubin (0.2-1.3) mg/dL AST (14-36) IU/L ALT (<35) IU/L Alkaline Phosphatase (38-126) U/L Troponin I < 0.012 (0.01-0.034) ng/mL Total Protein (6.3-8.2) g/dL Albumin (3.5-5.0) g/dL Globulin (1.7-4.1) g/dL Albumin/Globulin Ratio (1.0-2.8) Lipase Cancelled 02/26/22 Range/Units 15:42 WBC (4.5-11.0) X10^3/uL RBC (4.0-5.2) X10^6/uL Hgb (12.0-16.0) g/dL Hct (36-46) % MCV (80-100) fL MCH (26-34) PG MCHC (30-36) % RDW (11.6-14.8) % Plt Count (150-400) X10^3/uL Neut % (Auto) Lymph % (Auto) Williamson % (Auto) Eos % (Auto) Baso % (Auto) Lymph # (Auto) Williamson # (Auto) Baso # (Auto) Total Counted Seg Neutrophils % (38-70) % Lymphocytes % (Manual) (25-45) % Atypical Lymphs % ( - 0) % Monocytes % (Manual) (2-11) % Neutrophils # (Manual) (5858-9186) /uL RBC Morphology PT (10.1-12.7) SECONDS INR (0.9-1.3) APTT (26-36) SECONDS Sodium (137-145) mmol/L Potassium (3.4-5.1) mmol/L Chloride (98-107) mmol/L Carbon Dioxide (22-32) mmol/L BUN (7-17) mg/dL Creatinine (0.52-1.04) mg/dL Estimated GFR (>60) mL/min BUN/Creatinine Ratio (6-22) Glucose (70-100) mg/dL Lactate (0.7-2.1) mmol/L Calcium (8.4-10.2) mg/dL Magnesium 2.3 (1.6-2.3) mg/dL Total Bilirubin (0.2-1.3) mg/dL AST (14-36) IU/L ALT (<35) IU/L Alkaline Phosphatase (38-126) U/L Troponin I (0.01-0.034) ng/mL Total Protein (6.3-8.2) g/dL Albumin (3.5-5.0) g/dL Globulin (1.7-4.1) g/dL Albumin/Globulin Ratio (1.0-2.8) Lipase 11 L Imaging Data Chest x-ray: Radiologist's Impression: IMPRESSION:? No acute pulmonary process. ? ? Dictated by: Chloe Nagel M.D. on 02/26/2022 at 15:22 ? ? Approved by: Chloe Nagel M.D. on 02/26/2022 at 15:23 ? CT scan - abdomen/pelvis: Radiologist's Impression: IMPRESSION:? ? Marked hypertrophy as well as perinephric stranding and mild hydronephrosis of the left kidney.? In addition, there is inflammatory change and thickening of the adjacent bowel loop.? Inflammatory changes are suspected to be primarily related to kidney with secondary colonic change.? However, evaluation is limited without IV contrast as hypertrophy and inflammation could be secondary to pyelonephritis.? Additionally, hematoma cannot be excluded.? Contrast study is recommended for further evaluation. ? Dictated by: Chloe Nagel M.D. on 02/26/2022 at 15:37 ? ? Approved by: Chloe Nagel M.D. on 02/26/2022 at 15:47 ? Critical Care Time Critical Care Time Attestation: 30 minutes of critical care time for sepsis and acute renal failure Discharge Plan Departure Patient Disposition: Admitted As Inpatient Clinical Impression: Pyelonephritis, Sepsis, Renal failure (ARF), acute on chronic Prescriptions: No Action methocarbamol 500 mg tablet 500 mg PO Q8H Label Comments: take 1 tablet by mouth every 8 hours sumatriptan succinate 100 mg tablet 100 mg PO PRN MDD 2 PRN (Reason: Migraine Headache) Label Comments: take 1 tablet by mouth ONCE NEEDED FOR MIGRAINE FOR UP TO 1 DOSE MAY REPEAT AFTER 2 HOURS clonazepam 0.5 mg tablet 0.5 mg PO DAILY Label Comments: take 1 tablet by mouth twice a day if needed for anxiety UP TO 10 DOSES. MUST LAST 30 DAYS. patient states takes once daily prn levothyroxine 50 mcg tablet 50 mcg PO DAILY hydroxyzine HCl 25 mg tablet 25 mg PO BID Label Comments: take 1 tablet by mouth twice a day morphine 15 mg tablet extended release 15 mg PO Q8H Label Comments: take 1 tablet by mouth every 8 hours sevelamer carbonate 800 mg tablet 800 mg PO BID Label Comments: take 1 tablet by mouth twice a day WITH 2 LARGEST MEALS. patient states takes ONCE daily with largest meal. oxycodone 10 mg tablet 10 mg PO Q4-6H MDD 4 PRN (Reason: pain) Label Comments: take 1 tablet by mouth every 4 to 6 hours if needed MAX 4 PER DAY metronidazole [Flagyl] 500 MG tablet 500 mg PO Q8H clindamycin phosphate 1 % gel 1 applic topical DIRECTED levofloxacin 250 mg Tablet 250 mg PO DAILY Qty: 5 0RF Referrals: Vega Ang MD [Primary Care Provider] -
[2022-02-26] MEDS: PIPERACILLIN/TAZO 4.5 GM in SODIUM CHLORIDE 0.9% 100 ML IV (15:45)
[2022-02-26] MEDS: SODIUM CHLORIDE 0.9% 1,000 ML 1000 ML IV (15:45)
[2022-02-26] MEDS: ACETAMINOPHEN 325 MG TABLET 975 MG PO (15:46)
[2022-02-26 16:19] LABS: INR 1.2 (0.9-1.3); Prothrombin Time 13.7 SECONDS (10.1-12.7)
[2022-02-26 16:21] LABS: Lactate (Lactic Acid) 0.7 mmol/L (0.7-2.1); Lipase 11 U/L (23-300); Magnesium 2.3 mg/dL (1.6-2.3); PTT Partial Thromboplastin Tim 30 SECONDS (26-36)
[2022-02-26] MEDS: VANCOMYCIN 1,000 MG/200 ML PIGGYBACK 200 MG IV (16:22)
[2022-02-26 16:34] LABS: Troponin I < 0.012 ng/mL (0.01-0.034)
[2022-02-26 16:53] LABS: Alanine Aminotransferase 112 IU/L (<35); Albumin 3.2 g/dL (3.5-5.0); Albumin Globulin Ratio 0.8 (1.0-2.8); Alkaline Phosphatase 368 U/L (38-126); Aspartate Aminotransferase 192 IU/L (14-36); BUN Creatinine Ratio 15.1 (6-22); Bilirubin Total 1.3 mg/dL (0.2-1.3); Blood Urea Nitrogen 64 mg/dL (7-17); Calcium 8.2 mg/dL (8.4-10.2); Carbon Dioxide 12 mmol/L (22-32); Chloride 101 mmol/L (98-107); Estimated Glomerular Filt Rate 12 mL/min (>60); Glucose 114 mg/dL (70-100); HEMOLYSIS < 15 (0-50); Sodium 130 mmol/L (137-145); Total Protein 7.2 g/dL (6.3-8.2)
[2022-02-26 17:14] VITALS: BP 110/56; PULSE 102; RESP 20; O2SAT 98
[2022-02-26] MEDS: SODIUM CHLORIDE 0.9% 2,449.41 ML 816.47 ML IV (17:44)
[2022-02-26 17:49] LABS: COVID19 -Nasal RAPID Negative (Negative)
[2022-02-26 18:13] VITALS: BP 93/54; PULSE 99; RESP 16; TEMP 35.7; O2SAT 100
[2022-02-26 18:40] LABS: Appearance Urine UA CLEAR; Color Urine UA YELLOW; Glucose Urine UA NEGATIVE (Negative); Ketones Urine UA NEGATIVE (NEGATIVE); Leukocyte Esterase Urine UA 1+ (NEGATIVE); Nitrite Urine UA NEGATIVE (Negative); Occult Blood Urine UA 3+ (Negative); Protein Urine UA 3+ (Negative); Specific Gravity Urine UA 1.015 (1.000-1.035); pH Urine UA 5.5 (4.5-8.0)
[2022-02-26 18:43] VITALS: BMI 24.4
[2022-02-26 19:12] LABS: Bacteria Urine Moderate (10-30); Culture Indicated Urine Specimen Cultured; RBC Urine 30-100/HPF (0-5/HPF); Renal Epithelial Cells Urine 0-1/HPF (0-1/HPF); Squamous Epithelial Cell Urine 1-5 /HPF (0-5/HPF); Transitional Epi Cells Urine 0-1/HPF (0-5/HPF); WBC Urine >100/HPF (0-5/HPF)
[2022-02-26 19:15] LABS: Bilirubin Urine UA 1+ (NEGATIVE); Ictotest Urine Negative (Negative)
[2022-02-26] MEDS: OXYCODONE IR 10 MG TABLET PO (20:21)
[2022-02-26] MEDS: SODIUM CHLORIDE 0.9% 1,000 ML 100 ML IV (20:21)
[2022-02-26] MEDS: FLUTICASONE 120 SPRAY/16 GM SPRAY.SUSP NASAL (20:21)
[2022-02-26 20:30] VITALS: BP 90/55; PULSE 96; RESP 18; TEMP 36.3; O2SAT 95
--- NOTE | 2022-02-26 20:44 | P.HP_ITS ---
History of Present Illness History of Present Illness Date Patient Seen: 02/26/22 Chief complaint: abd pain x4days, sleeping,red vomiting after eatin Narrative: This is a 56-year-old female presenting to the emergency department due to 11 days of frontal sinus pain and pressure.? States she has a very chronic history of sinus infections.? States that she is had intermittent fevers and chills for the last 4 days and was ?shaking so bad? last night in bed.? Also reports productive mucus.? States she is chronically immunosuppressed due to her stage 4 chronic kidney disease and interstitial cystitis. I saw the patient in the medical floor after she is been transferred from ER, patient says that she started feeling better after IV fluids and antibiotics given in the ER. Patient confirms that she is having recurrent episodes of nausea and vomiting from past for 5 days. Unable to keep anything food down. Patient says that she was given doxycycline for sinusitis but did not improve. She denies any specific urinary symptoms but also complains epigastric pain and some back pain. Patient says that she had 3 episodes of pancreatitis in the past. Patient says that she has chronic interstitial cystitis and chronic kidney disease, denies any urinary symptoms today. Patient denies any chest pain. Does have some headaches probably related to nausea and sinusitis. Denies any other neurological symptoms. Patient History Medical History Chronic back pain Migraine headache Nephrolithiasis Surgical History History of lumbar laminectomy Family & Social History Family History (Updated 07/28/18 @ 13:10 by Jessa Pedersen MD) Mother Hypertension Father Kidney stones Social History: household members family,friend(s) Prior Living Arrangements Homeless Safety & Behavioral: Feels Safe in Current Yes Environment Been Physically Hurt or No Threatened By a Person Tobacco & Substance use: Tobacco type cigarettes Smoking Status Current every day smoker alcohol intake never alcohol intake frequency holiday/special occasion Substance Use Type does not use Meds Home Medications and Allergies Home Medications Medication Instructions Recorded Confirmed Type clindamycin phosphate 1 % topical 1 applic topical DIRECTED 07/28/18 02/26/22 History gel clonazepam 0.5 mg tablet 0.5 mg PO DAILY 07/28/18 02/26/22 History levothyroxine 50 mcg tablet 50 mcg PO DAILY 07/28/18 02/26/22 History methocarbamol 500 mg tablet 500 mg PO Q8H 07/28/18 02/26/22 History oxycodone 10 mg tablet 10 mg PO Q4-6H PRN pain 07/28/18 02/26/22 History azelastine 137 mcg (0.1 %) nasal 2 spray intranasal QAM 02/26/22 02/26/22 History spray aerosol cetirizine 10 mg tablet 10 mg PO QAM 02/26/22 02/26/22 History fluticasone propionate 50 50 mcg intranasal QAM 02/26/22 02/26/22 History mcg/actuation nasal spray,suspension nortriptyline 10 mg capsule 10 mg PO QPM 02/26/22 02/26/22 History ondansetron 4 mg disintegrating 4 mg translingual PRN PRN Nausea 02/26/22 02/26/22 History tablet pantoprazole 40 mg tablet,delayed 40 mg PO QAM 02/26/22 02/26/22 History release solifenacin 5 mg tablet 5 mg PO BID 02/26/22 02/26/22 History Allergies Allergy/AdvReac Type Severity Reaction Status Date / Time ertapenem [ERTAPENEM] Allergy Unknown Verified 02/26/22 14:07 iodine [IODINE] Allergy Unknown DRINKING Verified 02/26/22 14:07 CONTRAST GIVES HER WELTS prednisone [PREDNISONE] Allergy Unknown GETS Verified 02/26/22 14:07 ENRAGED AND SKIN IS CRAWLING Review of Systems Review of Systems Narrative: All other systems reviewed, negative other than mentioned above. Exam Vital Signs (past 8 hours): - 02/26/22 14:06 02/26/22 17:14 02/26/22 18:13 Temperature 97.6 F 96.2 F L Pulse Rate 118 H 102 H 99 H Respiratory Rate 15 20 16 Blood Pressure 85/54 L 110/56 L 93/54 L Pulse Oximetry 97 98 100 Oxygen Delivery Method Room Air Room Air Oxygen Delivery Method Room Air Narrative Exam Narrative: Patient seems to be comfortable and sitting up in the bed, able to make a reasonable conversation, follows commands. Examination positive for mild discomfort in epigastric area and also significant left renal angle tenderness consistent with a pyelonephritis. No apparent suprapubic tenderness on my examination, no organomegaly. Mild sinus right maxillary tenderness. Cardiovascular, pulmonary, HEENT, eyes, neuro, skin, psych examination done, negative other than as mentioned above. Objective Labs Result Diagrams: 02/26/22 14:35 02/26/22 15:42 Labs: Laboratory Results - last 24 hr 02/26/22 02/26/22 02/26/22 14:35 14:35 15:42 WBC 34.9 H* RBC 3.77 L Hgb 11.5 L Hct 34.8 L MCV 92.4 MCH 30.5 MCHC 33.0 RDW 14.7 Plt Count 353 Neut % (Auto) Not Reportable Lymph % (Auto) Not Reportable [place] % (Auto) Not Reportable Eos % (Auto) Not Reportable Baso % (Auto) Not Reportable Lymph # (Auto) Not Reportable [place] # (Auto) Not Reportable Baso # (Auto) Not Reportable Total Counted 100 Seg Neutrophils % 91.0 H Lymphocytes % (Manual) 3.0 L Atypical Lymphs % 1.0 H Monocytes % (Manual) 5.0 Neutrophils # (Manual) 75088 H RBC Morphology Normal morphology PT 13.7 H INR 1.2 APTT 30 Sodium Potassium Chloride Carbon Dioxide BUN Creatinine Estimated GFR BUN/Creatinine Ratio Glucose Lactate Calcium Magnesium Total Bilirubin AST ALT Alkaline Phosphatase Troponin I Total Protein Albumin Globulin Albumin/Globulin Ratio Lipase Urine Color Urine Appearance Urine pH Ur Specific [place] Urine Protein Urine Glucose (UA) Urine Ketones Urine Occult Blood Urine Nitrate Urine Bilirubin Ur Bilirubin Confirm Urine Urobilinogen Ur Leukocyte Esterase Urine RBC Urine WBC Ur Squamous Epith Cells Ur Transition Epith Cell Ur Renal Epithelial Cell Urine Bacteria Ur Culture Indicated? SARS-CoV-2 (PCR) Blood Type B Positive Antibody Screen Negative 02/26/22 02/26/22 02/26/22 15:42 15:42 15:42 WBC RBC Hgb Hct MCV MCH MCHC RDW Plt Count Neut % (Auto) Lymph % (Auto) [place] % (Auto) Eos % (Auto) Baso % (Auto) Lymph # (Auto) [place] # (Auto) Baso # (Auto) Total Counted Seg Neutrophils % Lymphocytes % (Manual) Atypical Lymphs % Monocytes % (Manual) Neutrophils # (Manual) RBC Morphology PT INR APTT Sodium 130 L Potassium 4.0 Chloride 101 Carbon Dioxide 12 L BUN 64 H Creatinine 4.23 H Estimated GFR 12 L BUN/Creatinine Ratio 15.1 Glucose 114 H Lactate Calcium 8.2 L Magnesium Total Bilirubin 1.3 AST 192 H ALT 112 H Alkaline Phosphatase 368 H Troponin I < 0.012 Total Protein 7.2 Albumin 3.2 L Globulin 4.0 Albumin/Globulin Ratio 0.8 L Lipase Cancelled Urine Color Urine Appearance Urine pH Ur Specific [place] Urine Protein Urine Glucose (UA) Urine Ketones Urine Occult Blood Urine Nitrate Urine Bilirubin Ur Bilirubin Confirm Urine Urobilinogen Ur Leukocyte Esterase Urine RBC Urine WBC Ur Squamous Epith Cells Ur Transition Epith Cell Ur Renal Epithelial Cell Urine Bacteria Ur Culture Indicated? SARS-CoV-2 (PCR) Blood Type Antibody Screen 02/26/22 02/26/22 02/26/22 15:42 15:42 16:58 WBC RBC Hgb Hct MCV MCH MCHC RDW Plt Count Neut % (Auto) Lymph % (Auto) [place] % (Auto) Eos % (Auto) Baso % (Auto) Lymph # (Auto) [place] # (Auto) Baso # (Auto) Total Counted Seg Neutrophils % Lymphocytes % (Manual) Atypical Lymphs % Monocytes % (Manual) Neutrophils # (Manual) RBC Morphology PT INR APTT Sodium Potassium Chloride Carbon Dioxide BUN Creatinine Estimated GFR BUN/Creatinine Ratio Glucose Lactate 0.7 Calcium Magnesium 2.3 Total Bilirubin AST ALT Alkaline Phosphatase Troponin I Total Protein Albumin Globulin Albumin/Globulin Ratio Lipase 11 L Urine Color Urine Appearance Urine pH Ur Specific [place] Urine Protein Urine Glucose (UA) Urine Ketones Urine Occult Blood Urine Nitrate Urine Bilirubin Ur Bilirubin Confirm Urine Urobilinogen Ur Leukocyte Esterase Urine RBC Urine WBC Ur Squamous Epith Cells Ur Transition Epith Cell Ur Renal Epithelial Cell Urine Bacteria Ur Culture Indicated? SARS-CoV-2 (PCR) Negative Blood Type Antibody Screen 02/26/22 18:24 WBC RBC Hgb Hct MCV MCH MCHC RDW Plt Count Neut % (Auto) Lymph % (Auto) [place] % (Auto) Eos % (Auto) Baso % (Auto) Lymph # (Auto) [place] # (Auto) Baso # (Auto) Total Counted Seg Neutrophils % Lymphocytes % (Manual) Atypical Lymphs % Monocytes % (Manual) Neutrophils # (Manual) RBC Morphology PT INR APTT Sodium Potassium Chloride Carbon Dioxide BUN Creatinine Estimated GFR BUN/Creatinine Ratio Glucose Lactate Calcium Magnesium Total Bilirubin AST ALT Alkaline Phosphatase Troponin I Total Protein Albumin Globulin Albumin/Globulin Ratio Lipase Urine Color Yellow Urine Appearance Clear Urine pH 5.5 Ur Specific [place] 1.015 Urine Protein 3+ H Urine Glucose (UA) Negative Urine Ketones Negative Urine Occult Blood 3+ H Urine Nitrate Negative Urine Bilirubin 1+ H Ur Bilirubin Confirm Negative Urine Urobilinogen 1.0 Ur Leukocyte Esterase 1+ H Urine RBC 30-100/hpf H Urine WBC >100/hpf H Ur Squamous Epith Cells 1-5 /hpf Ur Transition Epith Cell 0-1/hpf Ur Renal Epithelial Cell 0-1/hpf Urine Bacteria Moderate (10-30) H Ur Culture Indicated? Specimen cultured SARS-CoV-2 (PCR) Blood Type Antibody Screen Assessment & Plan Assessment and plan (1) Pyelonephritis: Status: Acute (2) Sepsis: Status: Acute (3) Renal failure (ARF), acute on chronic: Status: Acute Assessment & Plan narrative: Severe sepsis secondary to pyelonephritis -received IV antibiotics and IV fluids -vancomycin and Zosyn was given, I discussed with the pharmacy, Zosyn dosing adjusted now for renal dosing. Continue IV fluids. Patient has mild left hydronephrosis, we will follow up in the morning with a repeat ultrasound to make sure it is not worsening. If hydronephrosis is worsening, might need to be transferred to a facility with the urology service, this has been explained to the patient. Chronic interstitial cystitis, chronic kidney disease stage IV now worsening with acute kidney injury probably related to dehydration and combination of sepsis -continue to monitor renal functions, if worsening with electrolyte abnormalities might need Nephrology consultation -if patient renal functions worsen -might need transfer to facility with Nephrology Nausea vomiting and clinical dehydration -IV fluids and IV antiemetic, encourage p.o. fluids Generalized anxiety disorder -continue home medication SCDs for DVT prophylaxis, Protonix for GI prophylaxis -patient is full code Patient's sister is the primary shoes salesperson at this time, I offered to talk to her, patient requested to call her sister only if it is absolutely necessary. Overall prognosis is guarded, care plan extensively discussed with the patient and answered all questions. Time Spent With Patient Critical Care time: I spent a total of [] minutes of critical care time on this patient's care today; this time is exclusive of procedural time.
[2022-02-26] MEDS: PIPERACILLIN/TAZO 3.375 GM in SODIUM CHLORIDE 0.9% 100 ML IV (22:15)
[2022-02-27] VITALS (8 sets, daily range): BP systolic 81–109; BP diastolic 41–65; PULSE 85–122; RESP 16–18; TEMP 36.6–37.7; O2SAT 93–96
[2022-02-27] MEDS: OXYCODONE IR 10 MG TABLET PO ×3 (00:15→13:21)
[2022-02-27] MEDS: NORTRIPTYLINE 10 MG CAPSULE PO ×2 (00:51→20:31)
[2022-02-27] MEDS: methocarbamoL 500 MG TABLET PO ×4 (00:51→20:31)
[2022-02-27] MEDS: PANTOPRAZOLE DR 20 MG TABLET PO (05:16)
[2022-02-27 06:06] LABS: Add Manual Diff / Slide Review NO; Basophils Absolute Auto 100 /uL (0-100); Basophils Percent Auto 0.3 % (0-2); Eosinophils Absolute Auto 0 /uL (0-450); Eosinophils Percent Auto 0.1 % (2-4); Hematocrit 35.1 % (36-46); Hemoglobin 11.4 g/dL (12.0-16.0); Lymphocytes Absolute Auto 500 /uL (1100-4500); Lymphocytes Percent Auto 1.9 % (25-40); Mean Corpuscular HGB Conc 32.6 % (30-36); Mean Corpuscular Hemoglobin 30.6 PG (26-34); Mean Corpuscular Volume 93.7 fL (80-100); Monocytes Absolute Auto 1900 /uL (0-900); Monocytes Percent Auto 7.5 % (3-14); Neutrophils Absolute Auto 22400 /uL (1500-7000); Neutrophils Percent Auto 90.2 % (50-75); Platelet Count 306 X10^3/uL (150-400); Red Blood Cell Count 3.74 X10^6/uL (4.0-5.2); Red Cell Distribution Width 14.7 % (11.6-14.8); White Blood Cell Count 24.9 X10^3/uL (4.5-11.0)
[2022-02-27 06:17] LABS: Alanine Aminotransferase 108 IU/L (<35); Albumin 2.8 g/dL (3.5-5.0); Albumin Globulin Ratio 0.7 (1.0-2.8); Alkaline Phosphatase 347 U/L (38-126); Aspartate Aminotransferase 155 IU/L (14-36); BUN Creatinine Ratio 16.1 (6-22); Blood Urea Nitrogen 67 mg/dL (7-17); Calcium 7.8 mg/dL (8.4-10.2); Carbon Dioxide 12 mmol/L (22-32); Chloride 103 mmol/L (98-107); Estimated Glomerular Filt Rate 12 mL/min (>60); Globulin 3.9 g/dL (1.7-4.1); Glucose 80 mg/dL (70-100); HEMOLYSIS < 15 (0-50); Potassium 3.5 mmol/L (3.4-5.1); Sodium 134 mmol/L (137-145); Total Protein 6.7 g/dL (6.3-8.2)
[2022-02-27] MEDS: ONDANSETRON 4 MG/2 ML INJ IV (06:56)
--- NOTE | 2022-02-27 07:00 | DI.US.S_ITS ---
PROCEDURE: US RENAL COMPLETE INDICATIONS: FOLLOW-UP LEFT HYDRONEPHROSIS TECHNIQUE: Real-time scanning was performed of the kidneys and bladder, with image documentation. COMPARISON: [facility], CT, CT ABDOMEN PELVIS WO CON, 02/26/2022, 15:07. [facility], US, US RENAL COMPLETE, 07/28/2018, 9:58. FINDINGS: Kidneys: Right kidney measures 10.1 centimeters. No hydronephrosis. Nephrolith seen on CT not seen on ultrasound. Normal cortical thickness. Left kidney measures 14.1 centimeters. Normal appearing renal pelvis. The overall residual caliectasis is present. Nonobstructing stones are seen. Bladder: Ureteral jets are not visualized. (Of note, ureteral jets may not be detectable in up to 25% of cases due to insufficient differences in specific gravity between ureteral and bladder urine). Overall bladder is nondistended. Miscellaneous: No free pelvic fluid. IMPRESSION: Persistent left caliectasis with normal appearing renal pelvis. Several nonobstructing calculi are seen. Dictated by: William Prather M.D. on 02/27/2022 at 8:40 Approved by: William Prather M.D. on 02/27/2022 at 8:43 the
[2022-02-27] MEDS: HYDROMORPHONE 0.5 MG INJ 1 MG IV ×3 (07:37→19:56)
[2022-02-27] MEDS: OXYBUTYNIN 5 MG ER TAB PO ×2 (08:38→20:31)
[2022-02-27] MEDS: LEVOTHYROXINE 50 MCG TABLET PO (08:38)
[2022-02-27] MEDS: CALCIUM CARBONATE 600 MG TABLET PO (08:38)
[2022-02-27] MEDS: PIPERACILLIN/TAZO 3.375 GM in SODIUM CHLORIDE 0.9% 100 ML IV ×2 (08:38→20:32)
--- NOTE | 2022-02-27 09:13 | CM.DANOTE ---
Addendum entered by BRII Arvizu 02/27/22 11:40: ADD: SW met bedside with pt again and confirmed she is living in [place] with spouse and family and is independent at baseline and has had to manage UTIs for many years. Pt confirms that her PCP is Dr. Ang currently but that she is not happy with him and would prefer to go back to Dr. Mitchell but they no longer take her insurance. Pt feels PCP did not manage her symptoms well which led to her admission. Pt does not have any concerns for d/c needs and is hopeful to discharge via spouse POV when medically stable. Ultrasound results are in the normal range with no concern for transfer at this time. BF Original Note: Patient is a 56 yo female who was admitted on 02/26/22 for Abd Pain. Pt has [employer] AD[employer] for insurance and her PCP is [facility]. EMR was reviewed. Per MD, pt with Severe Sepsis and pyelonephritis. Pt currently on IV-Abx. Per RN, pt had ultrasound and pending results may need hospital transfer for higher level of care. SW met bedside with pt and explained role and pt confirms she is currently living in [place] and independent with ADL's but states calling her cell phone and she wants to update him. Plan: SW to complete bedside assessment with pt once off phone and after ultrasound results return to determine transfer vs POC and d/c needs. BRII Arvizu Discharge Planning/Care Management CM Discharge Assessment Start: 02/27/22 09:12 Freq: Status: Active Protocol: Document 02/27/22 09:12 BF (Rec: 02/27/22 09:13 BF [id number]) Discharge Planning Assessment Assigned Band Lining Bander BRII Lemons DPOA/Assigned Designee Name spouse Advance Directives? No Advance Directives on File No History Provided By Patient,Medical Record Has Patient been admitted in last 30 No days? Prior Living Arrangements Apartment/Condo Household Members family,friend(s) Type of transporation used prior to Relies on Others admit Independent with ADL's Yes Is patient alert and oriented? Yes Caregiver for Another No Discharge Plan Home Transportation Arrangement Friend Additional Comment Pending POC Review Status In Process Please Provide Date Initial DC 02/27/22 Assessment Was Performed Next Review Type Continued Stay Review
--- NOTE | 2022-02-27 11:31 | P.PN_ITS ---
Subjective Subjective Interval history: This is a 56-year-old female who presented to the emergency department yesterday due to 11 days of frontal sinus pain and pressure.?She had a very chronic history of sinus infections.? She had intermittent fevers and chills for the last 4 days prior to presentation and was ?shaking so bad? in the night in bed.? Also reported productive mucus.? She is chronically immunosuppressed due to her stage 4 chronic kidney disease and interstitial cystitis, per the patient. Feeling better. Eager to increase diet. Is very tired. Exam Vital Signs (past 8 hours): - 02/27/22 03:59 02/27/22 08:25 Temperature 98.7 F 98.9 F Pulse Rate 85 122 H Respiratory Rate 18 18 Blood Pressure 94/49 L 109/62 Pulse Oximetry 96 96 Oxygen Flow Rate 0 0 Oxygen Delivery Method Room Air Oxygen Flow Rate 0 Narrative Exam Narrative: General: No acute medical distress HEENT: CC reactive to light extraocular movements normal, neck is supple. Trachea is midline head is normocephalic. Cardiovascular: Heart sounds S1-S2 no extra sounds or murmur. Respiratory: Adequate air entry throughout the lung donnelly no wheezes or crackles. Gastrointestinal: Abdomen is soft. Nontender. Bowel sounds normal. CV angle: To his left side tenderness. Musculoskeletal: Able to move all extremities volitionally. Neuro: No localizing signs. Objective Labs Result Diagrams: 02/27/22 05:07 02/27/22 05:07 Labs: Laboratory Results - last 24 hr 02/26/22 02/26/22 02/26/22 14:35 14:35 15:42 WBC 34.9 H* RBC 3.77 L Hgb 11.5 L Hct 34.8 L MCV 92.4 MCH 30.5 MCHC 33.0 RDW 14.7 Plt Count 353 Neut % (Auto) Not Reportable Lymph % (Auto) Not Reportable [place] % (Auto) Not Reportable Eos % (Auto) Not Reportable Baso % (Auto) Not Reportable Neut # (Auto) Lymph # (Auto) Not Reportable [place] # (Auto) Not Reportable Eos # (Auto) Baso # (Auto) Not Reportable Total Counted 100 Seg Neutrophils % 91.0 H Lymphocytes % (Manual) 3.0 L Atypical Lymphs % 1.0 H Monocytes % (Manual) 5.0 Neutrophils # (Manual) 35297 H RBC Morphology Normal morphology PT 13.7 H INR 1.2 APTT 30 Sodium Potassium Chloride Carbon Dioxide BUN Creatinine Estimated GFR BUN/Creatinine Ratio Glucose Lactate Calcium Magnesium Total Bilirubin AST ALT Alkaline Phosphatase Troponin I Total Protein Albumin Globulin Albumin/Globulin Ratio Lipase Urine Color Urine Appearance Urine pH Ur Specific [place] Urine Protein Urine Glucose (UA) Urine Ketones Urine Occult Blood Urine Nitrate Urine Bilirubin Ur Bilirubin Confirm Urine Urobilinogen Ur Leukocyte Esterase Urine RBC Urine WBC Ur Squamous Epith Cells Ur Transition Epith Cell Ur Renal Epithelial Cell Urine Bacteria Ur Culture Indicated? SARS-CoV-2 (PCR) Blood Type B Positive Antibody Screen Negative 02/26/22 02/26/22 02/26/22 15:42 15:42 15:42 WBC RBC Hgb Hct MCV MCH MCHC RDW Plt Count Neut % (Auto) Lymph % (Auto) [place] % (Auto) Eos % (Auto) Baso % (Auto) Neut # (Auto) Lymph # (Auto) [place] # (Auto) Eos # (Auto) Baso # (Auto) Total Counted Seg Neutrophils % Lymphocytes % (Manual) Atypical Lymphs % Monocytes % (Manual) Neutrophils # (Manual) RBC Morphology PT INR APTT Sodium 130 L Potassium 4.0 Chloride 101 Carbon Dioxide 12 L BUN 64 H Creatinine 4.23 H Estimated GFR 12 L BUN/Creatinine Ratio 15.1 Glucose 114 H Lactate Calcium 8.2 L Magnesium Total Bilirubin 1.3 AST 192 H ALT 112 H Alkaline Phosphatase 368 H Troponin I < 0.012 Total Protein 7.2 Albumin 3.2 L Globulin 4.0 Albumin/Globulin Ratio 0.8 L Lipase Cancelled Urine Color Urine Appearance Urine pH Ur Specific [place] Urine Protein Urine Glucose (UA) Urine Ketones Urine Occult Blood Urine Nitrate Urine Bilirubin Ur Bilirubin Confirm Urine Urobilinogen Ur Leukocyte Esterase Urine RBC Urine WBC Ur Squamous Epith Cells Ur Transition Epith Cell Ur Renal Epithelial Cell Urine Bacteria Ur Culture Indicated? SARS-CoV-2 (PCR) Blood Type Antibody Screen 02/26/22 02/26/22 02/26/22 15:42 15:42 16:58 WBC RBC Hgb Hct MCV MCH MCHC RDW Plt Count Neut % (Auto) Lymph % (Auto) [place] % (Auto) Eos % (Auto) Baso % (Auto) Neut # (Auto) Lymph # (Auto) [place] # (Auto) Eos # (Auto) Baso # (Auto) Total Counted Seg Neutrophils % Lymphocytes % (Manual) Atypical Lymphs % Monocytes % (Manual) Neutrophils # (Manual) RBC Morphology PT INR APTT Sodium Potassium Chloride Carbon Dioxide BUN Creatinine Estimated GFR BUN/Creatinine Ratio Glucose Lactate 0.7 Calcium Magnesium 2.3 Total Bilirubin AST ALT Alkaline Phosphatase Troponin I Total Protein Albumin Globulin Albumin/Globulin Ratio Lipase 11 L Urine Color Urine Appearance Urine pH Ur Specific [place] Urine Protein Urine Glucose (UA) Urine Ketones Urine Occult Blood Urine Nitrate Urine Bilirubin Ur Bilirubin Confirm Urine Urobilinogen Ur Leukocyte Esterase Urine RBC Urine WBC Ur Squamous Epith Cells Ur Transition Epith Cell Ur Renal Epithelial Cell Urine Bacteria Ur Culture Indicated? SARS-CoV-2 (PCR) Negative Blood Type Antibody Screen 02/26/22 02/27/22 02/27/22 18:24 05:07 05:07 WBC 24.9 H RBC 3.74 L Hgb 11.4 L Hct 35.1 L MCV 93.7 MCH 30.6 MCHC 32.6 RDW 14.7 Plt Count 306 Neut % (Auto) 90.2 H Lymph % (Auto) 1.9 L [place] % (Auto) 7.5 Eos % (Auto) 0.1 L Baso % (Auto) 0.3 Neut # (Auto) 64599 H Lymph # (Auto) 500 L [place] # (Auto) 1900 H Eos # (Auto) 0 Baso # (Auto) 100 Total Counted Seg Neutrophils % Lymphocytes % (Manual) Atypical Lymphs % Monocytes % (Manual) Neutrophils # (Manual) RBC Morphology PT INR APTT Sodium 134 L Potassium 3.5 Chloride 103 Carbon Dioxide 12 L BUN 67 H Creatinine 4.17 H Estimated GFR 12 L BUN/Creatinine Ratio 16.1 Glucose 80 Lactate Calcium 7.8 L Magnesium Total Bilirubin 1.0 AST 155 H ALT 108 H Alkaline Phosphatase 347 H Troponin I Total Protein 6.7 Albumin 2.8 L Globulin 3.9 Albumin/Globulin Ratio 0.7 L Lipase Urine Color Yellow Urine Appearance Clear Urine pH 5.5 Ur Specific [place] 1.015 Urine Protein 3+ H Urine Glucose (UA) Negative Urine Ketones Negative Urine Occult Blood 3+ H Urine Nitrate Negative Urine Bilirubin 1+ H Ur Bilirubin Confirm Negative Urine Urobilinogen 1.0 Ur Leukocyte Esterase 1+ H Urine RBC 30-100/hpf H Urine WBC >100/hpf H Ur Squamous Epith Cells 1-5 /hpf Ur Transition Epith Cell 0-1/hpf Ur Renal Epithelial Cell 0-1/hpf Urine Bacteria Moderate (10-30) H Ur Culture Indicated? Specimen cultured SARS-CoV-2 (PCR) Blood Type Antibody Screen [facility] Medical History Chronic back pain Migraine headache Nephrolithiasis Surgical History History of lumbar laminectomy Family History (Updated 07/28/18 @ 13:10 by Jessa Pedersen MD) Mother Hypertension Father Kidney stones Social History household members: family and friend(s) Smoking Status: Current every day smoker alcohol intake: never Assessment & Plan Assessment & Plan narrative: 1. Pyelonephritis: Urine culture positive for gram negative bacilli. Patient on Zosyn and vancomycin. Continue. ? ? 2. Sepsis: Concern. Blood cultures pending. ? ? 3. Renal failure (ARF), acute on chronic: Creatinine decreased from 4.23-4.17. GFR stable at 12. Continue to monitor. 4. Concern for hydronephrosis mild on initial imaging. Renal ultrasound confirms no hydronephrosis and noted nonobstructing calculi. 5. Chronic interstitial cystitis. 6. Nausea vomiting. Vomiting settle. Occasional nausea with some medication. Continue to monitor. 7. Generalized anxiety disorder -continue home medication Continue to follow clinically and monitor labs. SCDs for DVT prophylaxis Protonix for GI prophylaxis Code: patient is full code Substitute decision maker: Patient's sister is the primary specialty finishing utility person at this time, patient requested to call her sister only if it is absolutely necessary. Time Spent With Patient Critical Care time: I spent a total of [] minutes of critical care time on this patient's care today; this time is exclusive of procedural time.
[2022-02-27] MEDS: SODIUM CHLORIDE 0.9% 500 ML 250 ML IV (13:22)
[2022-02-27] MEDS: SODIUM CHLORIDE 0.9% 1,000 ML 100 ML IV (15:14)
[2022-02-27] MEDS: ACETAMINOPHEN 325 MG TABLET 650 MG PO (18:56)
[2022-02-27] MEDS: HEPARIN 5,000 UNIT/ML VIAL 5000 UNIT SUBCUT (20:30)
[2022-02-28] MEDS: HYDROMORPHONE 0.5 MG INJ 1 MG IV ×4 (00:16→17:34)
[2022-02-28 00:40] VITALS: BP 98/53; PULSE 90; RESP 18; TEMP 36.2; O2SAT 97
[2022-02-28] MEDS: SODIUM CHLORIDE 0.9% 1,000 ML 100 ML IV ×2 (01:36→12:47)
[2022-02-28 03:58] LABS: Acinetobacter baumannii Not Detected (Not Detect); Enterobacteriaceae species Detected (Not Detect); Enterococcus species Not Detected (Not Detect); KPC (carbapenem-resist gene) Not Detected (Not Detect); Listeria monocytogenes Not Detected (Not Detect); Staphylococcus species Not Detected (Not Detect); Streptococcus agalactiae (Gr B Not Detected (Not Detect); Streptococcus pneumonia Not Detected (Not Detect); Streptococcus pyogenes (Gr A) Not Detected (Not Detect); Streptococcus species Not Detected (Not Detect)
[2022-02-28 03:59] LABS: Candida albicans Not Detected (Not Detect); Candida glabrata Not Detected (Not Detect); Candida krusei Not Detected (Not Detect); Candida parapsilosis Not Detected (Not Detect); Candida tropicalis Not Detected (Not Detect); E. coli Detected (Not Detect); Enterobacter cloacae complex Not Detected (Not Detect); Haemophilus influenzae Not Detected (Not Detect); Neisseria meningitidis Not Detected (Not Detect); Proteus species Not Detected (Not Detect); Pseudomonas aeruginosa Not Detected (Not Detect); Serratia marcescens Not Detected (Not Detect)
[2022-02-28 04:50] VITALS: BP 114/69; PULSE 90; RESP 18; TEMP 36.6; O2SAT 98
[2022-02-28] MEDS: PANTOPRAZOLE DR 20 MG TABLET PO (05:31)
[2022-02-28 05:51] LABS: Add Manual Diff / Slide Review NO; Basophils Absolute Auto 100 /uL (0-100); Basophils Percent Auto 0.6 % (0-2); Eosinophils Absolute Auto 100 /uL (0-450); Eosinophils Percent Auto 0.4 % (2-4); Hemoglobin 10.5 g/dL (12.0-16.0); Lymphocytes Absolute Auto 400 /uL (1100-4500); Lymphocytes Percent Auto 2.6 % (25-40); Mean Corpuscular HGB Conc 32.8 % (30-36); Mean Corpuscular Hemoglobin 30.8 PG (26-34); Mean Corpuscular Volume 93.7 fL (80-100); Monocytes Absolute Auto 1200 /uL (0-900); Monocytes Percent Auto 7.6 % (3-14); Neutrophils Absolute Auto 14500 /uL (1500-7000); Neutrophils Percent Auto 88.8 % (50-75); Platelet Count 269 X10^3/uL (150-400); Red Blood Cell Count 3.41 X10^6/uL (4.0-5.2); Red Cell Distribution Width 14.8 % (11.6-14.8); White Blood Cell Count 16.3 X10^3/uL (4.5-11.0)
[2022-02-28 05:56] LABS: Alanine Aminotransferase 90 IU/L (<35); Albumin 2.6 g/dL (3.5-5.0); Albumin Globulin Ratio 0.7 (1.0-2.8); Alkaline Phosphatase 390 U/L (38-126); Aspartate Aminotransferase 96 IU/L (14-36); BUN Creatinine Ratio 17.9 (6-22); Bilirubin Unconjugated 0.2 mg/dL (0.0-1.1); Blood Urea Nitrogen 61 mg/dL (7-17); Calcium 7.8 mg/dL (8.4-10.2); Carbon Dioxide 10 mmol/L (22-32); Chloride 105 mmol/L (98-107); Estimated Glomerular Filt Rate 15 mL/min (>60); Globulin 3.6 g/dL (1.7-4.1); Glucose 87 mg/dL (70-100); HEMOLYSIS < 15 (0-50); Potassium 3.4 mmol/L (3.4-5.1); Sodium 131 mmol/L (137-145); Total Protein 6.2 g/dL (6.3-8.2)
[2022-02-28 06:17] LABS: C-Reactive Protein Quant 21.2 mg/dL (<1.0)
[2022-02-28] MEDS: ACETAMINOPHEN 325 MG TABLET 650 MG PO ×3 (06:57→21:38)
[2022-02-28] MEDS: OXYCODONE IR 10 MG TABLET PO ×3 (07:58→21:29)
[2022-02-28] MEDS: methocarbamoL 500 MG TABLET PO ×3 (08:08→21:30)
[2022-02-28] MEDS: HEPARIN 5,000 UNIT/ML VIAL 5000 UNIT SUBCUT ×2 (08:08→21:30)
[2022-02-28] MEDS: CALCIUM CARBONATE 600 MG TABLET PO (08:08)
[2022-02-28] MEDS: OXYBUTYNIN 5 MG ER TAB PO ×2 (08:08→21:29)
[2022-02-28] MEDS: LEVOTHYROXINE 50 MCG TABLET PO (08:08)
[2022-02-28] MEDS: PIPERACILLIN/TAZO 3.375 GM in SODIUM CHLORIDE 0.9% 100 ML IV ×2 (08:16→21:30)
[2022-02-28 09:11] VITALS: BP 99/57; PULSE 94; RESP 18; TEMP 36.6; O2SAT 96
[2022-02-28 12:11] VITALS: BP 115/63; PULSE 96; RESP 18; TEMP 36.4; O2SAT 96
--- NOTE | 2022-02-28 15:23 | P.PN_ITS ---
Subjective Subjective Interval history: This is a 56-year-old female who presented to the emergency department yesterday due to 11 days of frontal sinus pain and pressure.?She had a very chronic history of sinus infections.? She had intermittent fevers and chills for the last 4 days prior to presentation and was ?shaking so bad? in the night in bed.? Also reported productive mucus.? She is chronically immunosuppressed due to her stage 4 chronic kidney disease and interstitial cystitis, per the patient. Continues to feel that she is improving today. More out of the bed and walking around. Still very tired however. Exam Vital Signs (past 8 hours): - 02/28/22 09:11 02/28/22 12:11 Temperature 97.8 F 97.6 F Pulse Rate 94 H 96 H Respiratory Rate 18 18 Blood Pressure 99/57 L 115/63 Pulse Oximetry 96 96 Oxygen Flow Rate 0 0 Oxygen Delivery Method Room Air Oxygen Flow Rate 0 Narrative Exam Narrative: General:? No acute medical distress HEENT:? Pupils reactive to light extraocular movements normal, neck is supple.? Trachea is midline head is normocephalic. Cardiovascular:? Heart sounds S1-S2 no extra sounds or murmur. Respiratory:? Adequate air entry throughout the lung donnelly. Clear. Gastrointestinal:? Abdomen is soft.? Nontender.? Bowel sounds normal. CV angle:? To his left side minimal tenderness. Musculoskeletal:? Able to move all extremities volitionally. Neuro:? No localizing signs. Objective Labs Result Diagrams: 02/28/22 05:19 02/28/22 05:19 Labs: Laboratory Results - last 24 hr 02/28/22 02/28/22 02/28/22 01:34 05:19 05:19 WBC 16.3 H RBC 3.41 L Hgb 10.5 L Hct 32.0 L MCV 93.7 MCH 30.8 MCHC 32.8 RDW 14.8 Plt Count 269 Neut % (Auto) 88.8 H Lymph % (Auto) 2.6 L [place] % (Auto) 7.6 Eos % (Auto) 0.4 L Baso % (Auto) 0.6 Neut # (Auto) 07202 H Lymph # (Auto) 400 L [place] # (Auto) 1200 H Eos # (Auto) 100 Baso # (Auto) 100 Sodium 131 L Potassium 3.4 Chloride 105 Carbon Dioxide 10 L BUN 61 H Creatinine 3.41 H Estimated GFR 15 L BUN/Creatinine Ratio 17.9 Glucose 87 Calcium 7.8 L Total Bilirubin 1.0 Conjugated Bilirubin 0.0 Unconjugated Bilirubin 0.2 AST 96 H ALT 90 H Alkaline Phosphatase 390 H C-Reactive Protein 21.2 H Total Protein 6.2 L Albumin 2.6 L Globulin 3.6 Albumin/Globulin Ratio 0.7 L A. baumannii (PCR) Not detected [place] albicans (PCR) Not detected C. glabrata (PCR) Not detected C. krusei (PCR) Not detected C. parapsilosis (PCR) Not detected C. tropicalis (PCR) Not detected Enterobacteriac sp PCR Detected H E. cloacae complex PCR Not detected Enterococcus sp PCR Not detected E. coli (PCR) Detected H H. influenzae (PCR) Not detected Klebsiella oxytoca PCR Not detected Klebsiella pneumoniae Not detected List. monocytogenes PCR Not detected N. meningitidis (PCR) Not detected Proteus species (PCR) Not detected Serratia marcescens PCR Not detected Staphylococcus sp PCR Not detected Staph aureus (PCR) Not detected mecA-Methicil Res Gene Not Reportable Streptococcus sp PCR Not detected Group A Strep (PCR) Not detected Strep agalactiae (PCR) Not detected Strep pneumoniae (PCR) Not detected P. aeruginosa (PCR) Not detected Dora/B-Vanco Res Genes Not Reportable KPC-Carbap Res Gene PCR Not detected PFSH Medical History Chronic back pain Migraine headache Nephrolithiasis Surgical History History of lumbar laminectomy Family History (Updated 07/28/18 @ 13:10 by Jessa Pedersen MD) Mother Hypertension Father Kidney stones Social History household members: family and friend(s) Smoking Status: Current every day smoker alcohol intake: never Assessment & Plan Assessment & Plan narrative: 1.? Pyelonephritis:? Urine culture positive for gram negative bacilli.? Patient on Zosyn.? Continue. ? ? 2.? Sepsis:? Blood cultures positive for E coli, sensitivity not provided as of yet. However patient is responding well to Zosyn. ? ? 3.? Renal failure (ARF), acute on chronic:? Creatinine decreased from 4.23 to 3.41.? GFR increased to 15.? Continue to monitor. 4. Concern for hydronephrosis mild on initial imaging.? Renal ultrasound confirms no hydronephrosis and noted nonobstructing calculi. 5. Chronic interstitial cystitis. 6. Nausea vomiting.? Vomiting has settled.? Occasional nausea with some medication.? Continue to monitor. 7. Generalized anxiety disorder -continue home medication Continue to follow clinically and monitor labs. SCDs for DVT prophylaxis Protonix for GI prophylaxis Code: patient is full code Time Spent With Patient Critical Care time: I spent a total of [] minutes of critical care time on this patient's care today; this time is exclusive of procedural time.
--- NOTE | 2022-02-28 16:49 | DIET.CONS ---
Dietary Consultation Note Admission Date: 02/26/2022 17:13 Assessment: Pt is a 53 yo F admitted for severe sepsis secondary to pyelonephritis and chronic kidney disease stage IV (eGFR 15, Cr 3.41) Pt requested consult with RD to discuss appropriate dietary intake for renal support. Pt endorses being confused on what to eat, feeling that her diet is limited due to kidney stones and kidney disease. Pt desires nutrition education for renal diet. Pt reports passing roughly 20 kidney stones, stating she creates calcium phosphate stones. Pt reports hx of multiple Litholink tests, with the most recent test on 02/26/2022. Pt does not recall dietary recc from test results. Food Recall: B: yogurt, several cups coffee with half and half skips lunch- occasional white chocolate mocha D: varies but pt reports falling asleep shortly after this meal Pt enjoys red beans and rice, and pt was excited to hear that beans are an acceptable protein source for renal support. Ht: 182.88 cm Wt: 82.5 kg BMI: 24.4 Last BM: 02/25/22 (02/26/22 18:43) MNA: 12 Bridger Score: 22 Diet: 02/27/22 Lunch Renal Diet Diet Modifications: Nutrition Percent Meal Consumed 100% 02/28/22 13:50 Percent Meal Consumed 100% 02/28/22 09:11 Percent Meal Consumed 25% 02/27/22 12:55 Percent Meal Consumed 0% 02/27/22 09:00 Labs: RBC 3.41 X10^6/uL (4.0-5.2) L 02/28/22 05:19 Hgb 10.5 g/dL (12.0-16.0) L 02/28/22 05:19 Hct 32.0 % (36-46) L 02/28/22 05:19 Creatinine 3.41 mg/dL (0.52-1.04) H 02/28/22 05:19 Lactate 0.7 mmol/L (0.7-2.1) 02/26/22 15:42 Nutrition Diagnosis: Food- and nutrition-related knowledge deficit r/t hx of kidney stones and chronic kidney disease stage IV aeb pt endorsing confusion on what foods to eat on a renal diet and hx of Litholink tests with no recollection of dietary recc from test results. Interventions: 1. For renal support, RD educated pt on low-protein, low-sodium diet and provided pt with the National Kidney Diet DISH UP A Kidney-Friendly Meal handout. Recc limiting sodium to 600 mg/meal or less. When using salt, use [employer] Kosher Salt for decreased sodium content. Limit protein to 45-50 g/d. Encouraged vegetable protein sources. Recc low-potassium food choices with no specific maximum intake recommendation. Recc eliminating commercial phosphorus intake. Encouraged plant-based sources of phosphorus due to poor absorption of this form of phosphate. 2. For renal support, RD recc f/u visit for renal dietary consult specific to Litholink results, RD called pts PCP to request referral. EER: [id number] kcal (25-30 kcal/kg), 45-50 g PRO (0.55-0.6 g PRO/kg) Monitoring/Evaluations: f/u as outpatient to review Litholink results and refine renal reccs Electronically Signed by: Lashawn Buckley 02/28/22 16:49 Clinical Dietitian [address] [address]
[2022-02-28 20:23] VITALS: BP 102/71; PULSE 93; RESP 19; TEMP 36.5; O2SAT 100
[2022-02-28] MEDS: NORTRIPTYLINE 10 MG CAPSULE PO (21:30)
[2022-03-01] MEDS: SODIUM CHLORIDE 0.9% 1,000 ML 100 ML IV ×3 (00:09→21:22)
[2022-03-01] MEDS: HYDROMORPHONE 0.5 MG INJ 1 MG IV (00:09)
[2022-03-01 00:10] VITALS: BP 102/66; PULSE 84; RESP 17; TEMP 36.6; O2SAT 98
[2022-03-01 05:05] VITALS: BP 105/60; PULSE 88; RESP 16; TEMP 36.6; O2SAT 98
[2022-03-01 06:06] LABS: Alanine Aminotransferase 61 IU/L (<35); Albumin 2.4 g/dL (3.5-5.0); Albumin Globulin Ratio 0.7 (1.0-2.8); Alkaline Phosphatase 311 U/L (38-126); Aspartate Aminotransferase 40 IU/L (14-36); BUN Creatinine Ratio 18.4 (6-22); Bilirubin Total 0.7 mg/dL (0.2-1.3); Blood Urea Nitrogen 63 mg/dL (7-17); C-Reactive Protein Quant 8.6 mg/dL (<1.0); Carbon Dioxide 12 mmol/L (22-32); Chloride 109 mmol/L (98-107); Estimated Glomerular Filt Rate 15 mL/min (>60); Globulin 3.4 g/dL (1.7-4.1); Glucose 99 mg/dL (70-100); HEMOLYSIS < 15 (0-50); Potassium 3.3 mmol/L (3.4-5.1); Sodium 133 mmol/L (137-145); Total Protein 5.8 g/dL (6.3-8.2)
[2022-03-01] MEDS: OXYCODONE IR 10 MG TABLET PO ×2 (06:14→13:28)
[2022-03-01] MEDS: PANTOPRAZOLE DR 20 MG TABLET PO (06:15)
[2022-03-01] MEDS: ACETAMINOPHEN 325 MG TABLET 650 MG PO ×2 (06:15→21:33)
[2022-03-01 06:26] LABS: Hematocrit 30.1 % (36-46); Hemoglobin 10.1 g/dL (12.0-16.0); Mean Corpuscular HGB Conc 33.4 % (30-36); Mean Corpuscular Hemoglobin 31.3 PG (26-34); Mean Corpuscular Volume 93.7 fL (80-100); Platelet Count 274 X10^3/uL (150-400); Red Blood Cell Count 3.21 X10^6/uL (4.0-5.2); Red Cell Distribution Width 15.3 % (11.6-14.8)
[2022-03-01 06:30] LABS: Add Manual Diff / Slide Review YES
[2022-03-01 07:48] LABS: Neutrophils Absolute Manual 10080 /uL (3000-5900); RBC Morphology Normal Morphology; Total Cells Counted 100
[2022-03-01 08:15] VITALS: BP 122/76; PULSE 97; RESP 16; TEMP 36.7; O2SAT 99
[2022-03-01] MEDS: FLUTICASONE 120 SPRAY/16 GM SPRAY.SUSP NASAL (09:29)
[2022-03-01] MEDS: OXYBUTYNIN 5 MG ER TAB PO ×2 (09:30→21:24)
[2022-03-01] MEDS: CALCIUM CARBONATE 600 MG TABLET PO (09:30)
[2022-03-01] MEDS: LEVOTHYROXINE 50 MCG TABLET PO (09:31)
[2022-03-01] MEDS: HEPARIN 5,000 UNIT/ML VIAL 5000 UNIT SUBCUT ×2 (09:32→21:23)
[2022-03-01] MEDS: methocarbamoL 500 MG TABLET PO ×3 (09:32→21:25)
[2022-03-01] MEDS: PIPERACILLIN/TAZO 3.375 GM in SODIUM CHLORIDE 0.9% 100 ML IV ×2 (10:00→21:25)
--- NOTE | 2022-03-01 11:37 | PM.PN.1 ---
Subjective Subjective Interval history: This is a 56-year-old female presenting to the emergency department due to 11 days of frontal sinus pain and pressure.? States has had a very chronic history of sinus infections.? States that she is had intermittent fevers and chills for the last 4 days and was ?shaking so bad? last night in bed.? Also reports productive mucus.? States she is chronically immunosuppressed due to her stage 4 chronic kidney disease and interstitial cystitis. Urine cultures were positive for E coli. It is ESBL and sensitive to Zosyn. We will continue Zosyn IV antibiotics. Blood culture is also positive for E coli at this time with no sensitivity however most likely the same. Patient also complaining of nighttime pain. Will do scheduled dose of pain medication at night. Exam Vital Signs (past 8 hours): - 03/01/22 05:05 03/01/22 08:15 Temperature 97.9 F 98.0 F Pulse Rate 88 97 H Respiratory Rate 16 16 Blood Pressure 105/60 122/76 Pulse Oximetry 98 99 Oxygen Flow Rate 0 0 Oxygen Delivery Method Room Air Oxygen Flow Rate 0 Narrative Exam Narrative: General:? No acute medical distress HEENT:? Pupils reactive to light extraocular movements normal, neck is supple.? Trachea is midline head is normocephalic. Cardiovascular:? Heart sounds S1-S2 no extra sounds or murmur. Respiratory:? Adequate air entry throughout the lung donnelly.? Clear. Gastrointestinal:? Abdomen is soft.? Nontender.? Bowel sounds normal. CV angle:? To his left side minimal tenderness. Musculoskeletal:? Able to move all extremities volitionally. Neuro:? No localizing signs. Objective Labs Result Diagrams: 03/01/22 05:18 03/01/22 05:18 Labs: Laboratory Results - last 24 hr 03/01/22 03/01/22 05:18 05:18 WBC 12.0 H RBC 3.21 L Hgb 10.1 L Hct 30.1 L MCV 93.7 MCH 31.3 MCHC 33.4 RDW 15.3 H Plt Count 274 Neut % (Auto) Not Reportable Lymph % (Auto) Not Reportable [place] % (Auto) Not Reportable Eos % (Auto) Not Reportable Baso % (Auto) Not Reportable Lymph # (Auto) Not Reportable [place] # (Auto) Not Reportable Baso # (Auto) Not Reportable Total Counted 100 Seg Neutrophils % 82.0 H Band Neutrophils % 2.0 L Lymphocytes % (Manual) 10.0 L Monocytes % (Manual) 6.0 Neutrophils # (Manual) 04013 H RBC Morphology Normal morphology Sodium 133 L Potassium 3.3 L Chloride 109 H Carbon Dioxide 12 L BUN 63 H Creatinine 3.43 H Estimated GFR 15 L BUN/Creatinine Ratio 18.4 Glucose 99 Calcium 8.0 L Total Bilirubin 0.7 AST 40 H ALT 61 H Alkaline Phosphatase 311 H C-Reactive Protein 8.6 H Total Protein 5.8 L Albumin 2.4 L Globulin 3.4 Albumin/Globulin Ratio 0.7 L PFSH Medical History Chronic back pain Migraine headache Nephrolithiasis Surgical History History of lumbar laminectomy Family History (Updated 07/28/18 @ 13:10 by Jessa Pedersen MD) Mother Hypertension Father Kidney stones Social History household members: family and friend(s) Smoking Status: Current every day smoker alcohol intake: never Assessment & Plan Assessment & Plan narrative: 1.? Pyelonephritis:? Urine culture positive for gram negative bacilli that is E coli (ESBL) sensitive to Zosyn.? Patient on Zosyn.? Continue. ? ? 2.? Sepsis:? Blood cultures positive for E coli, sensitivity not provided as of yet.? However patient is responding well to Zosyn. Repeat blood cultures today to help clarify the length of treatment with Zosyn. If negative today can go from 7 days further from today. ? ? 3.? Renal failure (ARF), acute on chronic:? Creatinine decreased from 4.23 to 3.43 today.? GFR increased to 15.? Continue to monitor. 4. Concern for hydronephrosis mild on initial imaging.? Renal ultrasound confirms no hydronephrosis and noted nonobstructing calculi. 5. Chronic interstitial cystitis. 6. Nausea vomiting.? Vomiting has settled.? Occasional nausea with some medication.? Continue to monitor. 7. Generalized anxiety disorder -continue home medication. 8. Pain at night. Initiate Dilaudid 2 mg p.o. q.h.s. Continue to follow clinically and monitor labs. SCDs for DVT prophylaxis Protonix for GI prophylaxis Code: patient is full code Time Spent With Patient Critical Care time: I spent a total of [] minutes of critical care time on this patient's care today; this time is exclusive of procedural time.
[2022-03-01] MEDS: clonazePAM 0.5 MG TABLET PO (13:28)
[2022-03-01 17:20] VITALS: BP 156/90; PULSE 105; RESP 18; TEMP 38.4; O2SAT 97
[2022-03-01] MEDS: HYDROMORPHONE 1 MG INJ IV (17:45)
[2022-03-01 21:05] VITALS: BP 124/65; PULSE 104; RESP 17; TEMP 37.1; O2SAT 95
[2022-03-01] MEDS: NORTRIPTYLINE 10 MG CAPSULE PO (21:24)
[2022-03-01] MEDS: HYDROMORPHONE 2 MG TABLET PO (21:24)
[2022-03-02] MEDS: HYDROMORPHONE 1 MG INJ IV ×4 (02:40→18:57)
[2022-03-02 05:40] VITALS: BP 111/60; PULSE 91; RESP 16; TEMP 36.8; O2SAT 98
[2022-03-02] MEDS: PANTOPRAZOLE DR 20 MG TABLET PO (05:54)
[2022-03-02] MEDS: LEVOTHYROXINE 50 MCG TABLET PO (05:54)
[2022-03-02] MEDS: OXYCODONE IR 10 MG TABLET PO ×2 (05:59→16:58)
[2022-03-02] MEDS: ACETAMINOPHEN 325 MG TABLET 650 MG PO ×2 (05:59→18:45)
[2022-03-02 08:35] VITALS: BP 119/69; PULSE 91; RESP 16; TEMP 36.7; O2SAT 98
[2022-03-02] MEDS: HYDROMORPHONE 2 MG TABLET PO ×2 (09:43→20:49)
[2022-03-02] MEDS: FLUTICASONE 120 SPRAY/16 GM SPRAY.SUSP NASAL (09:45)
[2022-03-02] MEDS: clonazePAM 0.5 MG TABLET PO (09:45)
[2022-03-02] MEDS: HEPARIN 5,000 UNIT/ML VIAL 5000 UNIT SUBCUT ×2 (09:45→20:48)
[2022-03-02] MEDS: PIPERACILLIN/TAZO 3.375 GM in SODIUM CHLORIDE 0.9% 100 ML IV ×2 (09:51→18:38)
[2022-03-02] MEDS: OXYBUTYNIN 5 MG ER TAB PO ×2 (09:51→20:48)
[2022-03-02] MEDS: methocarbamoL 500 MG TABLET PO ×3 (09:51→20:48)
[2022-03-02] MEDS: CALCIUM CARBONATE 600 MG TABLET PO (09:51)
[2022-03-02 10:38] LABS: Hematocrit 30.8 % (36-46); Hemoglobin 10.3 g/dL (12.0-16.0); Mean Corpuscular HGB Conc 33.3 % (30-36); Mean Corpuscular Hemoglobin 31.1 PG (26-34); Mean Corpuscular Volume 93.3 fL (80-100); Platelet Count 343 X10^3/uL (150-400); Red Cell Distribution Width 15.4 % (11.6-14.8)
[2022-03-02 10:40] LABS: BUN Creatinine Ratio 15.8 (6-22); Blood Urea Nitrogen 51 mg/dL (7-17); C-Reactive Protein Quant 8.7 mg/dL (<1.0); Calcium 8.3 mg/dL (8.4-10.2); Carbon Dioxide 10 mmol/L (22-32); Chloride 113 mmol/L (98-107); Estimated Glomerular Filt Rate 16 mL/min (>60); Glucose 145 mg/dL (70-100); HEMOLYSIS < 15 (0-50); Sodium 137 mmol/L (137-145)
[2022-03-02 10:42] LABS: Add Manual Diff / Slide Review YES
[2022-03-02 11:23] LABS: Neutrophils Absolute Manual 8300 /uL (3000-5900); RBC Morphology Normal Morphology; Total Cells Counted 100
[2022-03-02 14:20] VITALS: BP 116/62; PULSE 87; RESP 16; TEMP 36.7; O2SAT 97
--- NOTE | 2022-03-02 14:53 | PM.PN.1 ---
Subjective Subjective Date Patient Seen: 03/02/22 Interval history: This is a 56-year-old female admitted with nephrolithiasis, probable pyelonephritis with acute cystitis and ESBL E. coli bacteremia. She has continued left sided kidney pain and discomfort today. Overall continues to feel weak as well. Also with fever overnight to 101, but improved this AM. Exam Vital Signs (past 8 hours): - 03/02/22 08:35 03/02/22 14:20 Temperature 98.0 F 98.1 F Pulse Rate 91 H 87 Respiratory Rate 16 16 Blood Pressure 119/69 116/62 Pulse Oximetry 98 97 Oxygen Delivery Method Room Air Oxygen Flow Rate 0 Narrative Exam Narrative: General:? No acute medical distress HEENT:? Pupils reactive to light extraocular movements normal, neck is supple.? Trachea is midline head is normocephalic. Cardiovascular:? Heart sounds S1-S2 no extra sounds or murmur. Respiratory:? Adequate air entry throughout the lung donnelly.? Clear. Gastrointestinal:? Abdomen is soft.? mild tenderness Left mid quadrant.? Bowel sounds normal. CV angle:? Left side minimal tenderness. Musculoskeletal:? Able to move all extremities volitionally. Neuro:?alert and oriented. No localizing signs. Objective Labs Result Diagrams: 03/02/22 09:46 03/02/22 09:46 Labs: Laboratory Results - last 24 hr 03/02/22 03/02/22 09:46 09:46 WBC 10.0 RBC 3.30 L Hgb 10.3 L Hct 30.8 L MCV 93.3 MCH 31.1 MCHC 33.3 RDW 15.4 H Plt Count 343 Neut % (Auto) Not Reportable Lymph % (Auto) Not Reportable [place] % (Auto) Not Reportable Eos % (Auto) Not Reportable Baso % (Auto) Not Reportable Lymph # (Auto) Not Reportable [place] # (Auto) Not Reportable Baso # (Auto) Not Reportable Total Counted 100 Seg Neutrophils % 83.0 H Lymphocytes % (Manual) 9.0 L Atypical Lymphs % 1.0 H Monocytes % (Manual) 6.0 Eosinophils % (Manual) 1.0 L Neutrophils # (Manual) 8300 H RBC Morphology Normal morphology Sodium 137 Potassium 3.0 L Chloride 113 H Carbon Dioxide 10 L BUN 51 H Creatinine 3.22 H Estimated GFR 16 L BUN/Creatinine Ratio 15.8 Glucose 145 H Calcium 8.3 L C-Reactive Protein 8.7 H [facility] Medical History Chronic back pain Migraine headache Nephrolithiasis Surgical History History of lumbar laminectomy Family History (Updated 07/28/18 @ 13:10 by Jessa Pedersen MD) Mother Hypertension Father Kidney stones Social History household members: family and friend(s) Smoking Status: Current every day smoker alcohol intake: never Assessment & Plan Assessment & Plan narrative: 1.? Pyelonephritis with bacteremia with ESBL E. coli. - patient reports prior carbapenem allergy from a prolonged stay at [facility] in [place]. Thankfully organism is sensitive to zosyn and she does appear to be improving with this therapy as ideal agent is a carbapenem. - continue zosyn, course will be 7-14 days. - nonobstructing stones on imaging - continue pain control for pyelonephritis, started on BID dilaudid with prn oxycodone. ? ? 2.? Sepsis secondary to problem 1 with acute renal failure. 3.? Renal failure (ARF), acute on chronic:? Creatinine decreased from 4.23 to 3.22 today. Continue to monitor. Baseline appears to be around 2.0 based on prior lab values. 4. Concern for hydronephrosis mild on initial imaging.? Renal ultrasound confirms no hydronephrosis and noted nonobstructing calculi. 5. Chronic interstitial cystitis. 6. Nausea vomiting.? Vomiting has settled.? Occasional nausea with some medication. Also likely in setting of pyelonephritis. 7. Generalized anxiety disorder -continue home medication. SCDs for DVT prophylaxis Protonix for GI prophylaxis Code: patient is full code Dispo: Will need 7-14 days of IV antibiotics, may be able to do home infusion. May continue on zosyn but if barriers to discharge on zosyn given frequent dosing or home infusion will look into carbapenem allergy. Time Spent With Patient Critical Care time: I spent a total of [] minutes of critical care time on this patient's care today; this time is exclusive of procedural time.
--- NOTE | 2022-03-02 15:24 | CM.DPC ---
DCP Cont: Patient may be needing another week of IV ABO. Attempted to call patient in her room a few times, no answer. Hospitalist indicated, spoke to patient, may be ok with home infusions. She is on IV ABO q 8 hours, and may continue on the Pipercillin. Faxed the referral over to [facility]. She does not yet have a PICC or Midline. Will follow up with a phone call. P: DCP to continue to follow. Faxed over the referral over to [facility], included face sheet, H&P, med sheets. Tia Joaquin RN/Gastroenterology Technician
[2022-03-02] MEDS: SODIUM CHLORIDE 0.9% 1,000 ML 100 ML IV (16:59)
[2022-03-02 17:00] VITALS: BP 141/84; PULSE 92; RESP 18; TEMP 37.3; O2SAT 95
[2022-03-02] MEDS: NORTRIPTYLINE 10 MG CAPSULE PO (18:42)
[2022-03-02 18:45] VITALS: TEMP 37.8
[2022-03-02 20:00] VITALS: BP 135/79; PULSE 96; RESP 18; TEMP 37.6; O2SAT 98
[2022-03-03] VITALS: BP 137/68; PULSE 85; RESP 16; TEMP 36.8; O2SAT 99
[2022-03-03] MEDS: PIPERACILLIN/TAZO 3.375 GM in SODIUM CHLORIDE 0.9% 100 ML IV ×2 (01:36→18:27)
[2022-03-03] MEDS: SODIUM CHLORIDE 0.9% 1,000 ML 100 ML IV ×2 (01:38→18:48)
[2022-03-03] MEDS: OXYCODONE IR 10 MG TABLET PO ×3 (04:26→15:12)
[2022-03-03] MEDS: HYDROMORPHONE 1 MG INJ IV ×2 (05:29→18:27)
[2022-03-03] MEDS: LEVOTHYROXINE 50 MCG TABLET PO (05:30)
[2022-03-03] MEDS: PANTOPRAZOLE DR 20 MG TABLET PO (05:31)
[2022-03-03 08:00] VITALS: BP 114/63; PULSE 84; RESP 18; TEMP 36.7; O2SAT 98
--- NOTE | 2022-03-03 09:14 | CM.DPC ---
Addendum entered by Tia Joaquin R.N. 03/03/22 14:19: Was able to speak with Eda, pharmacist with [facility]. They have an available spot for tomorrow at 1530, for teaching either here at the hospital, or at the patient's home. Confirmed that primary care provider will follow patient at discharge, and will be getting another 5 days of ABO. Addendum entered by Tia Joaquin R.N. 03/03/22 12:44: Patient is wanting to go home today, but pending mid line, and medication IV set up for home. Attempted to get in touch with [facility] again, but was placed on hold for a while. Did receive name of pharmacist director of convention services, Eda, did not leave her a detailed message, as was a generic voice mail, but asked her to call this [employer] about a referral. Her phone number is: [phone] Addendum entered by Tia Joaquin R.N. 03/03/22 11:39: Nurse, Pily, indicated that she has spoken to patient, did not want to be disturbed on her phone, but is wanting home with infusion. Discussed patient during team rounds, and is not yet medically stable for discharge. Will follow up in the am with [facility]. Original Note: DCP Cont: Attempted to call patient's room to discuss home IV, but no answer. Had spoken to nurse, Pily, who stated that she was going to place phone by patient. Patient does not yet have midline. Have faxed [facility] over the referral. P: DCP to continue to follow. Will reach out again to patient and follow up with [facility]. Tia Joaquin, [place]/[employer]
[2022-03-03] MEDS: HYDROMORPHONE 2 MG TABLET PO ×2 (09:16→20:47)
[2022-03-03] MEDS: OXYBUTYNIN 5 MG ER TAB PO ×2 (09:17→20:46)
[2022-03-03] MEDS: CALCIUM CARBONATE 600 MG TABLET PO (09:17)
[2022-03-03] MEDS: methocarbamoL 500 MG TABLET PO ×3 (09:17→20:46)
[2022-03-03] MEDS: HEPARIN 5,000 UNIT/ML VIAL 5000 UNIT SUBCUT ×2 (09:17→20:46)
[2022-03-03] MEDS: FLUTICASONE 120 SPRAY/16 GM SPRAY.SUSP NASAL (09:18)
[2022-03-03 11:07] LABS: Add Manual Diff / Slide Review NO; Basophils Absolute Auto 100 /uL (0-100); Basophils Percent Auto 1.1 % (0-2); Eosinophils Absolute Auto 100 /uL (0-450); Eosinophils Percent Auto 1.6 % (2-4); Hematocrit 28.9 % (36-46); Hemoglobin 9.6 g/dL (12.0-16.0); Lymphocytes Absolute Auto 1500 /uL (1100-4500); Lymphocytes Percent Auto 18.1 % (25-40); Mean Corpuscular HGB Conc 33.1 % (30-36); Mean Corpuscular Hemoglobin 30.7 PG (26-34); Mean Corpuscular Volume 92.6 fL (80-100); Monocytes Absolute Auto 700 /uL (0-900); Monocytes Percent Auto 8.9 % (3-14); Neutrophils Absolute Auto 5700 /uL (1500-7000); Neutrophils Percent Auto 70.3 % (50-75); Platelet Count 363 X10^3/uL (150-400); Red Blood Cell Count 3.12 X10^6/uL (4.0-5.2); Red Cell Distribution Width 15.1 % (11.6-14.8); White Blood Cell Count 8.1 X10^3/uL (4.5-11.0)
[2022-03-03 11:11] LABS: BUN Creatinine Ratio 14.6 (6-22); Blood Urea Nitrogen 42 mg/dL (7-17); Calcium 8.2 mg/dL (8.4-10.2); Carbon Dioxide 11 mmol/L (22-32); Chloride 116 mmol/L (98-107); Estimated Glomerular Filt Rate 19 mL/min (>60); Glucose 113 mg/dL (70-100); HEMOLYSIS < 15 (0-50); Potassium 3.1 mmol/L (3.4-5.1); Sodium 137 mmol/L (137-145)
[2022-03-03 11:59] VITALS: BP 126/81; PULSE 93; RESP 16; TEMP 36.4; O2SAT 99
--- NOTE | 2022-03-03 13:13 | PM.PN.1 ---
Subjective Subjective Date Patient Seen: 03/03/22 Interval history: This is a 56-year-old female admitted with nephrolithiasis, probable pyelonephritis with acute cystitis and ESBL E. coli bacteremia. She has continued left sided kidney pain and discomfort today though it is controlled with pain medications. Overall continues to feel weak but improving. Attempting to see if she can have antibiotics at home. Exam Vital Signs (past 8 hours): - 03/03/22 08:00 03/03/22 11:59 Temperature 98.0 F 97.6 F Pulse Rate 84 93 H Respiratory Rate 18 16 Blood Pressure 114/63 126/81 Pulse Oximetry 98 99 Oxygen Flow Rate 0 0 Oxygen Delivery Method Room Air Oxygen Flow Rate 0 Narrative Exam Narrative: General:? No acute medical distress HEENT:? Pupils reactive to light extraocular movements normal, neck is supple.? Trachea is midline head is normocephalic. Cardiovascular:? Heart sounds S1-S2 no extra sounds or murmur. Respiratory:? Adequate air entry throughout the lung donnelly.? Clear. Gastrointestinal:? Abdomen is soft.? mild tenderness Left mid quadrant.? Bowel sounds normal. CV angle:? Left side minimal tenderness. Musculoskeletal:? Able to move all extremities volitionally. Neuro:?alert and oriented. No localizing signs. Objective Labs Result Diagrams: 03/03/22 10:49 03/03/22 10:49 Labs: Laboratory Results - last 24 hr 03/03/22 03/03/22 10:49 10:49 WBC 8.1 RBC 3.12 L Hgb 9.6 L Hct 28.9 L MCV 92.6 MCH 30.7 MCHC 33.1 RDW 15.1 H Plt Count 363 Neut % (Auto) 70.3 Lymph % (Auto) 18.1 L [place] % (Auto) 8.9 Eos % (Auto) 1.6 L Baso % (Auto) 1.1 Neut # (Auto) 5700 Lymph # (Auto) 1500 [place] # (Auto) 700 Eos # (Auto) 100 Baso # (Auto) 100 Sodium 137 Potassium 3.1 L Chloride 116 H Carbon Dioxide 11 L BUN 42 H Creatinine 2.87 H Estimated GFR 19 L BUN/Creatinine Ratio 14.6 Glucose 113 H Calcium 8.2 L PFSH Medical History Chronic back pain Migraine headache Nephrolithiasis Surgical History History of lumbar laminectomy Family History (Updated 07/28/18 @ 13:10 by Jessa Pedersen MD) Mother Hypertension Father Kidney stones Social History household members: family and friend(s) Smoking Status: Current every day smoker alcohol intake: never Assessment & Plan Assessment & Plan narrative: 1.? Pyelonephritis with bacteremia with ESBL E. coli. - patient reports prior carbapenem allergy from a prolonged stay at [facility] in [place]. Thankfully organism is sensitive to zosyn and she does appear to be improving with this therapy as ideal agent is a carbapenem. - continue zosyn, course will be 7-14 days. Given bacteremia will do 10 days total therapy which will be 03/12/22. - nonobstructing stones on imaging - continue pain control for pyelonephritis, started on BID dilaudid with prn oxycodone. ? ? 2.? Sepsis secondary to problem 1 with acute renal failure. 3.? Renal failure (ARF), acute on chronic:? Creatinine decreased from 4.23 to under 3 today likely due to sepsis. Baseline appears to be around 2.0 based on prior lab values. 4. Concern for hydronephrosis mild on initial imaging.? Renal ultrasound confirms no hydronephrosis and noted nonobstructing calculi. 5. Chronic interstitial cystitis. 6. Nausea vomiting.? Vomiting has settled.? Occasional nausea with some medication. Also likely in setting of pyelonephritis. 7. Generalized anxiety disorder -continue home medication. SCDs for DVT prophylaxis Protonix for GI prophylaxis Code: patient is full code Dispo: Will need 10 total days of IV antibiotics, may be able to do home infusion. May continue on zosyn but if barriers to discharge on zosyn given frequent dosing or home infusion will look into carbapenem allergy. Time Spent With Patient Critical Care time: I spent a total of [] minutes of critical care time on this patient's care today; this time is exclusive of procedural time.
--- NOTE | 2022-03-03 14:34 | PC.NURSE ---
10:15 Dr. Gomes notified that pt has not IV access due to IV leaking. Dr. Reynolds states, ok to leave IV out, ordering midline placement for patient.
[2022-03-03 15:00] VITALS: BP 124/73; PULSE 84; RESP 20; TEMP 36.7; O2SAT 98
[2022-03-03] MEDS: SODIUM BICARBONATE 650 MG TABLET 1300 MG PO ×2 (15:12→20:46)
[2022-03-03] MEDS: ACETAMINOPHEN 325 MG TABLET 650 MG PO (15:13)
--- NOTE | 2022-03-03 18:56 | PC.NURSE ---
CM Discharge Plan: Pt crying and states, cannot do infusions herself at home due to neuropathy of her hands and dropping things frequently. Notified Dr. Reynolds.
[2022-03-03] MEDS: NORTRIPTYLINE 10 MG CAPSULE PO (19:46)
[2022-03-03 19:50] VITALS: BP 116/65; PULSE 82; RESP 22; TEMP 36.6; O2SAT 95
[2022-03-03 23:04] VITALS: BP 128/70; PULSE 88; RESP 21; TEMP 36.2; O2SAT 97
[2022-03-04] MEDS: PIPERACILLIN/TAZO 3.375 GM in SODIUM CHLORIDE 0.9% 100 ML IV ×2 (02:12→09:35)
[2022-03-04] MEDS: ACETAMINOPHEN 325 MG TABLET 650 MG PO ×2 (03:08→12:05)
[2022-03-04] MEDS: OXYCODONE IR 10 MG TABLET PO ×3 (03:09→15:47)
[2022-03-04] MEDS: HYDROMORPHONE 1 MG INJ IV (03:10)
[2022-03-04] MEDS: SODIUM CHLORIDE 0.9% 1,000 ML 100 ML IV (03:11)
[2022-03-04 03:13] VITALS: BP 159/90; PULSE 95; RESP 19; TEMP 37.3; O2SAT 98
[2022-03-04] MEDS: LEVOTHYROXINE 50 MCG TABLET PO (06:12)
[2022-03-04] MEDS: PANTOPRAZOLE DR 20 MG TABLET PO (06:12)
[2022-03-04 07:57] VITALS: BP 120/78; PULSE 80; RESP 20; TEMP 36.4; O2SAT 100
--- NOTE | 2022-03-04 08:18 | P.PN_ITS ---
Exam Vital Signs (past 8 hours): - 03/04/22 03:13 03/04/22 07:57 Temperature 99.1 F 97.5 F L Pulse Rate 95 H 80 Respiratory Rate 19 20 Blood Pressure 159/90 H 120/78 Pulse Oximetry 98 100 Oxygen Flow Rate 0 0 Oxygen Delivery Method Room Air Oxygen Flow Rate 0 Narrative Exam Narrative: General:? No acute medical distress HEENT:? Pupils reactive to light extraocular movements normal, neck is supple.? Trachea is midline head is normocephalic. Cardiovascular:? Heart sounds S1-S2 no extra sounds or murmur. Respiratory:? Adequate air entry throughout the lung donnelly.? Clear. Gastrointestinal:? Abdomen is soft.? mild tenderness Left mid quadrant.? Bowel sounds normal. CV angle:? Left side minimal tenderness. Musculoskeletal:? Able to move all extremities volitionally. Neuro:?alert and oriented. No localizing signs. Objective Labs Result Diagrams: 03/03/22 10:49 03/03/22 10:49 Labs: Laboratory Results - last 24 hr 03/03/22 03/03/22 10:49 10:49 WBC 8.1 RBC 3.12 L Hgb 9.6 L Hct 28.9 L MCV 92.6 MCH 30.7 MCHC 33.1 RDW 15.1 H Plt Count 363 Neut % (Auto) 70.3 Lymph % (Auto) 18.1 L [place] % (Auto) 8.9 Eos % (Auto) 1.6 L Baso % (Auto) 1.1 Neut # (Auto) 5700 Lymph # (Auto) 1500 [place] # (Auto) 700 Eos # (Auto) 100 Baso # (Auto) 100 Sodium 137 Potassium 3.1 L Chloride 116 H Carbon Dioxide 11 L BUN 42 H Creatinine 2.87 H Estimated GFR 19 L BUN/Creatinine Ratio 14.6 Glucose 113 H Calcium 8.2 L PFSH Medical History Chronic back pain Migraine headache Nephrolithiasis Surgical History History of lumbar laminectomy Family History (Updated 07/28/18 @ 13:10 by Jessa Pedersen MD) Mother Hypertension Father Kidney stones Social History household members: family and friend(s) Smoking Status: Current every day smoker alcohol intake: never Assessment & Plan Assessment & Plan narrative: 1.? Pyelonephritis with bacteremia with ESBL E. coli. - patient reports prior carbapenem allergy from a prolonged stay at [facility] in [place]. Thankfully organism is sensitive to zosyn and she does a ppear to be improving with this therapy as ideal agent is a carbapenem. - continue zosyn, course will be 7-14 days. Given bacteremia will do 10 days total therapy which will be 03/12/22. - nonobstructing stones on imaging - continue pain control for pyelonephritis, started on BID dilaudid with prn oxycodone. ? ? 2.? Sepsis secondary to problem 1 with acute renal failure. 3.? Renal failure (ARF), acute on chronic:? Creatinine decreased from 4.23 to under 3 today likely due to sepsis. Baseline appears to be around 2.0 based on prior lab values. 4. Concern for hydronephrosis mild on initial imaging.? Renal ultrasound confirms no hydronephrosis and noted nonobstructing calculi. 5. Chronic interstitial cystitis. 6. Nausea vomiting.? Vomiting has settled.? Occasional nausea with some medi cation. Also likely in setting of pyelonephritis. 7. Generalized anxiety disorder -continue home medication. SCDs for DVT prophylaxis Protonix for GI prophylaxis Code: patient is full code Dispo: Will need 10 total days of IV antibiotics, may be able to do home infusion. May continue on zosyn but if barriers to discharge on zosyn given frequent dosing or home infusion will look into carbapenem allergy. Time Spent With Patient Critical Care time: I spent a total of [] minutes of critical care time on this patient's care today; this time is exclusive of procedural time.
--- NOTE | 2022-03-04 08:51 | CM.DPC ---
Addendum entered by Tia Joaquin R.N. 03/04/22 16:16: Spoke to [facility], they are here, can see patient next Friday, will have meds to take home. Called Bala at [facility], and he can set up a visit for Fri, she will need a blood draw. Friday's labs will need to be done at her provider's office, [facility], have faxed over the orders. Gave all of this information to nurse, Zay, to give to patient. Spoke to Ruchi, [employer]. Gave her the information that patient would need to be at clinic on Friday for blood draw. Let her know that this has been faxed over. She then mentioned making an appointment. Asked her why she would need an appointment for lab. She will let provider know regarding need for Friday blood draw, CMP, and faxed over orders again. Addendum entered by Tia Joaquin R.N. 03/04/22 15:28: Called over at [facility] and spoke to the medical office representative to see if she had a lab requisition there, since it is noted that patient needs labs three times a week. She indicated that she had received information from [facility], but no labs yet. Faxed over the script that notes three times a week labs, Fri, Fri, and Friday, for if [facility] can only do once a week, and [facility]fusion, will need other days covered. Patient may need to have transportation for blood draws on the other days. Will confirm this with Juarez at [facility] as well. Addendum entered by Tia Joaquin R.N. 03/04/22 14:42: Called over at Infusion oncology clinic next door, and spoke to nurse, Sisi. She had indicated that care management needed to call primary care provider for a referral, then, would need insurance auth. Was unclear on this, for care management does not normally call the clinics for referral and do insurance auth. Called Juarez at [facility] back to see if there is a type of payment plan that can be made for patient, due to her cost share. He indicated that they can work with patient on a payment plan. Updated patient, stated, it was doable. Let her know that this DC Casket As[employer]er [employer] would not know her share cost if she were to go next door to the oncology infusion clinic. Patient is also to have labs three times a week. Juarez at [facility] indicated that they normally do labs once a week, along with midline dressing changes. Called Bala at [facility], confirmed that they are contracted with patient's insurance. Let him know that patient may need twice a week lab draw, if [facility] can do the other day of the week. Gave him the information on patient, since he does have access to [facility], and he would check in with nursing. Went ahead and completed a face to face, and orders for RN, added P.T. for strengthening. Although he has records, faxed over the completed RX for the ABO, faxed to [facility] already. Juarez is on his way here to the hospital with the medication for 1530 dose. Completed face to face and orders, faxed to [facility]. Will follow up with a phone call today. Addendum entered by Tia Joaquin R.N. 03/04/22 12:21: Was informed by Juarez at [facility] that patient's cost would be about $206.00 per week. He had spoken to patient, and patient concerned about the cost, and wants to know if it would be more cost effective for her to have infusion next door, but getting a ride would be hard. Was also informed that patient needs daily labs, unclear as of yet. Was going to speak to patient again, but she is in the rest room. Will revisit and speak to her again. Current orders are not yet completed. Addendum entered by Tia Joaquin R.N. 03/04/22 11:07: Discussed patient during team rounds. Hospitalist indicated that he contacted infectious disease MD, Dr. Padilla for some advise regarding patient's antibiotic, for current medication may not be appropriate for culture. He is looking into one of the eratapenum medications, and if this can be given q 24 hours. If this is so, then patient may be able to go over to the infusion clinic if they can get insurance auth. Asked hospitalist to update this DC conference planner on medication, and if he can complete a hard copy. Juarez at [facility] had called, he had already spoken to patient, and will keep the 1530 nursing visit here since it is already scheduled. Juarez stated that after speaking to patient, she did not seem so anxious. As soon as medication is determined, will check in again with patient to see if she wants home versus infusion clinic. If medication is q 24 hours, she can get her dose here today. Original Note: LINDA Cont: Met with patient in her room. She was upset, she thought that she could go to the infusion clinic and get the infusions. Let her know that the infusions are every 8 hours, and it would be difficult to have them done at an outside facility with the time frame. Her spouse is out of the country, and is staying with some friends. Patient indicated, I just really want to go home. Apologized and clarified to her that [facility] is a company that would come here or in the home to do the teaching. She is ok with them going to her home this afternoon if they can do so. Asked patient if she wanted to go to a [facility] facility, which she does not want to do. Faxed [facility] over the site for mid line, and faxed, along with latest progress note, and med sheet. Patient is currently getting medication every 8 hours. P: DCP to work on getting [facility] set up. Will discuss further in team rounds, will need a prescription, and will need to confirm time of teaching as well. Tia Joaquin RN/Material Control Analyst
[2022-03-04] MEDS: HYDROMORPHONE 2 MG TABLET PO (09:10)
[2022-03-04] MEDS: HEPARIN 5,000 UNIT/ML VIAL 5000 UNIT SUBCUT (09:11)
[2022-03-04] MEDS: CALCIUM CARBONATE 600 MG TABLET PO (09:11)
[2022-03-04] MEDS: methocarbamoL 500 MG TABLET PO ×2 (09:11→15:47)
[2022-03-04] MEDS: SODIUM BICARBONATE 650 MG TABLET 1300 MG PO (09:11)
[2022-03-04] MEDS: OXYBUTYNIN 5 MG ER TAB PO (09:11)
[2022-03-04] MEDS: FLUTICASONE 120 SPRAY/16 GM SPRAY.SUSP NASAL (09:12)
[2022-03-04 09:40] LABS: Hematocrit 28.7 % (36-46); Hemoglobin 9.6 g/dL (12.0-16.0); Mean Corpuscular HGB Conc 33.3 % (30-36); Mean Corpuscular Hemoglobin 30.7 PG (26-34); Mean Corpuscular Volume 92.4 fL (80-100); Platelet Count 433 X10^3/uL (150-400); Red Blood Cell Count 3.11 X10^6/uL (4.0-5.2); White Blood Cell Count 7.9 X10^3/uL (4.5-11.0)
[2022-03-04 09:42] LABS: Add Manual Diff / Slide Review YES
[2022-03-04 09:50] LABS: Neutrophils Absolute Manual 6004 /uL (3000-5900); RBC Morphology Normal Morphology; Total Cells Counted 100
[2022-03-04 09:52] LABS: BUN Creatinine Ratio 14.2 (6-22); Blood Urea Nitrogen 34 mg/dL (7-17); Calcium 8.3 mg/dL (8.4-10.2); Carbon Dioxide 13 mmol/L (22-32); Chloride 114 mmol/L (98-107); Estimated Glomerular Filt Rate 23 mL/min (>60); Glucose 113 mg/dL (70-100); HEMOLYSIS 46 (0-50); Magnesium 1.6 mg/dL (1.6-2.3); Potassium 3.3 mmol/L (3.4-5.1); Sodium 139 mmol/L (137-145)
[2022-03-04 11:00] VITALS: BP 159/91; PULSE 96; RESP 18; TEMP 36.4; O2SAT 99
[2022-03-04 11:50] LABS: Alanine Aminotransferase 38 IU/L (<35); Albumin 2.7 g/dL (3.5-5.0); Albumin Globulin Ratio 0.7 (1.0-2.8); Alkaline Phosphatase 235 U/L (38-126); Aspartate Aminotransferase 31 IU/L (14-36); Bilirubin Total 0.7 mg/dL (0.2-1.3); Bilirubin Unconjugated 0.3 mg/dL (0.0-1.1); Globulin 3.9 g/dL (1.7-4.1); HEMOLYSIS 47 (0-50); Total Protein 6.6 g/dL (6.3-8.2)
[2022-03-04] MEDS: POTASSIUM CHLORIDE 20 MEQ TAB 40 MEQ PO (12:05)
[2022-03-04] MEDS: clonazePAM 0.5 MG TABLET PO (12:06)
[2022-03-04] MEDS: MAGNESIUM CHLORIDE 64 MG TABLET 128 MG PO (14:11)
[2022-03-04] MEDS: ERTAPENEM 0.5 GM in SODIUM CHLORIDE 0.9% 100 ML IV (15:46)
--- NOTE | 2022-03-04 16:23 | P.DS_ITS ---
History of Present Illness History of Present Illness Date Patient Seen: 03/04/22 Time Patient Seen: 11:00 Chief complaint: abd pain x4days, sleeping,red vomiting after eatin Narrative: This is a 56-year-old female presenting to the emergency department due to 11 d ays of frontal sinus pain and pressure.? States she has a very chronic history of sinus infections.? States that she is had intermittent fevers and chills for the last 4 days and was ?shaking so bad? last night in bed.? Also reports productive mucus.? States she is chronically immunosuppressed due to her stage 4 chronic kidney disease and interstitial cystitis. I saw the patient in the medical floor after she is been transferred from ER, patient says that she started feeling better after IV fluids and antibiotics given in the ER.? Patient confirms that she is having recurrent episodes of naus ea and vomiting from past for 5 days.? Unable to keep anything food down.? Patient says that she was given doxycycline for sinusitis but did not improve.? She denies any specific urinary symptoms but also complains epigastric pain and some back pain.? Patient says that she had 3 episodes of pancreatitis in the past.? Patient says that she has chronic interstitial cystitis and chronic kidney disease, denies any urinary symptoms today.? Patient denies any chest pain.? Does have some headaches probably related to nausea and sinusitis.? Denies any other neurological symptoms. Discharge Providers Provider Date of admission: 02/26/22 17:13 Discharge Date: 03/04/22 Primary care physician: Vega Ang MD Consults: 02/26/22 19:31 Consult to Pharmacy Stat Comment: Help Zosyn Dosing Peylo and CKD IV 03/04/22 14:23 Consult to Home Health Routine Comment: RN for labs, P.T. for strengthening Reason For Exam: Home Health RN, P.T. Discharge provider: Palmer Polo, DO Summary Hospital Course Discharge Diagnosis: 1.? Pyelonephritis with bacteremia due to ESBL E. coli. ?- patient reports prior ertapenem allergy from a prolonged stay at [facility] in [place]. However after reviewing records appears to be LFT elevation due to ertapenem. Patient elected for ertapenem with close monitoring of LFT's. - given bacteremia will do 10 days total therapy which will be 03/12/22. ?- nonobstructing stones on imaging ? ? 2.? Sepsis secondary to pyelonephritis, resolved -evidence of end organ damange with KYLEE on CKD 3.? Renal failure (ARF), acute on chronic:? Creatinine initially at 4.23 likely due to sepsis and decreased to 2.4 prior to dc. Baseline appears to be around 2.0 based on prior lab values. 4. Concern for hydronephrosis mild on initial imaging.? Renal ultrasound confirms no hydronephrosis and noted nonobstructing calculi. 5. Chronic interstitial cystitis. 6. Nausea vomiting.? Vomiting has settled.? Occasional nausea with some medication. Also likely in setting of pyelonephritis. 7. Generalized anxiety disorder -continue home medication. Hospital Course: Admitted for pyelonephritis and bacteremia secondary to ESBL E. coli sensitive to carbapenems and zosyn. Initially on zosyn however after speaking with ID zosyn would not be best option for bacteremia and dosing difficult for home infusions. Patient had ertapenem allergy listed but upon further review was found to be LFT elevation??. Discussed with patient and she elected to use ertapenem through home infusions for another week to complete 10 days with close monitoring of LFT's. She received a dose on 03/04 prior to discharge. Her LFT's prior to discharge were AST 31 and ALT 38. Also had sepsis with KYLEE which improved and Cr went from 4.23 to 2.4 which was near her baseline of 2. Time Spent with Patient Time spent: Greater than 30 minutes Exam Vital Signs (past 8 hours): - 03/04/22 11:00 Temperature 97.5 F L Pulse Rate 96 H Respiratory Rate 18 Blood Pressure 159/91 H Pulse Oximetry 99 Oxygen Flow Rate 0 Oxygen Delivery Method Room Air Oxygen Flow Rate 0 Narrative Exam Narrative: General:? No acute medical distress HEENT:? Pupils reactive to light extraocular movements normal, neck is supple.? Trachea is midline head is normocephalic. Cardiovascular:? Heart sounds S1-S2 no extra sounds or murmur. Respiratory:? Adequate air entry throughout the lung donnelly.? Clear. Gastrointestinal:? Abdomen is soft.? mild tenderness Left mid quadrant.? Bowel sounds normal. CV angle:? Left side minimal tenderness. Musculoskeletal:? Able to move all extremities volitionally. Neuro:?alert and oriented. No localizing signs. Objective Labs Result Diagrams: 03/04/22 09:25 03/04/22 09:25 Labs: Laboratory Results - last 24 hr 03/04/22 03/04/22 03/04/22 09:25 09:25 11:21 WBC 7.9 RBC 3.11 L Hgb 9.6 L Hct 28.7 L MCV 92.4 MCH 30.7 MCHC 33.3 RDW 15.0 H Plt Count 433 H Neut % (Auto) Not Reportable Lymph % (Auto) Not Reportable [place] % (Auto) Not Reportable Eos % (Auto) Not Reportable Baso % (Auto) Not Reportable Lymph # (Auto) Not Reportable [place] # (Auto) Not Reportable Baso # (Auto) Not Reportable Total Counted 100 Seg Neutrophils % 74.0 H Band Neutrophils % 2.0 L Lymphocytes % (Manual) 16.0 L Monocytes % (Manual) 8.0 Neutrophils # (Manual) 6004 H RBC Morphology Normal morphology Sodium 139 Potassium 3.3 L Chloride 114 H Carbon Dioxide 13 L BUN 34 H Creatinine 2.40 H Estimated GFR 23 L BUN/Creatinine Ratio 14.2 Glucose 113 H Calcium 8.3 L Magnesium 1.6 Total Bilirubin 0.7 Conjugated Bilirubin 0.0 Unconjugated Bilirubin 0.3 AST 31 ALT 38 H Alkaline Phosphatase 235 H Total Protein 6.6 Albumin 2.7 L Globulin 3.9 Albumin/Globulin Ratio 0.7 L PFSH Medical History Chronic back pain Migraine headache Nephrolithiasis Surgical History History of lumbar laminectomy Family History (Updated 07/28/18 @ 13:10 by Jessa Pedersen MD) Mother Hypertension Father Kidney stones Social History household members: family and friend(s) Smoking Status: Current every day smoker alcohol intake: never Discharge Plan Discharge Plan Patient Disposition: Home Health Service Provider Discharge Comment: You were admitted for a kidney and bloodstream infection from ESBL which a drug resistant form of E. coli. You improved on IV antibiotics and will now need daily IV abx at home to finish a 2 week course. Your last day will be on Mar 12. We will also be monitoring your labs carefully 3x per week. Please see your PCP for a referral to infectious disease Dr. Poon at [facility] so she can monitor you. Discharge orders & Medications Prescriptions: Continued methocarbamol 500 mg tablet 500 mg PO Q8H Label Comments: take 1 tablet by mouth every 8 hours clonazepam 0.5 mg tablet 0.5 mg PO DAILY Label Comments: take 1 tablet by mouth twice a day if needed for anxiety UP TO 10 DOSES. MUST LAST 30 DAYS. patient states takes once daily prn levothyroxine 50 mcg tablet 50 mcg PO DAILY clindamycin phosphate 1 % gel 1 applic topical DIRECTED cetirizine 10 mg tablet 10 mg PO QAM Label Comments: take 1 tablet by mouth once daily if needed for ALLERGIES pantoprazole 40 mg tablet,delayed release (DR/EC) 40 mg PO QAM Label Comments: take 1 tablet by mouth daily 30 MINUTES PRIOR TO A MEAL nortriptyline 10 mg capsule 10 mg PO QPM Label Comments: take 3 capsules by mouth nightly azelastine 137 mcg (0.1 %) aerosol,spray 2 spray INTRANASAL QAM Label Comments: inhale 1 spray into each nostril daily ondansetron 4 mg tablet,disintegrating 4 mg translingual PRN PRN (Reason: Nausea) Label Comments: dissolve 1 tablet ON TONGUE three times a day if needed for nausea OR vomiting fluticasone propionate 50 mcg/actuation spray,suspension 50 mcg INTRANASAL QAM Label Comments: instill 1 spray into each nostril once daily solifenacin 5 mg tablet 5 mg PO BID Label Comments: take 1 tablet by mouth twice a day oxycodone 10 mg tablet 10 mg PO Q4-6H MDD 4 PRN (Reason: pain) 7 Days Qty: 20 0RF Follow up/Referrals: Katerina Poon MD [Non-Staff] - 1 Week Vega Ang MD [Primary Care Provider] - 1 Week Discharge Data Primary Care Provider: Vega Ang
--- NOTE | 2022-03-04 17:19 | PC.NURSE ---
Patient tolerated today's dose of IV antibiotic as ordered. Patient was seen by [facility] in the hospital today prior to discharge where they completed their midline and infusion teachings. Patient has right upper arm midline in place, site is WNL, no signs of redness or irritation to site, dressing with biopatch remains in place and intact. Patient has been up independently in room, states she has BM this morning and is urinating without difficulty. Reports pain is improved with oxycodone as needed. Per case management [facility] is arranged to see patient on Friday and draw her labs, but they are not able to come on Friday so patient is instructed to have labs drawn in PCP clinics office. [facility] will return Friday for midline dressing change and lab draw. Patient states understanding and has no further questions or concerns at this time. Patient instructed to seek care or emergent care for new or worsening symptoms. Escorted out via wheelchair with all belongings to home with her sister.
== END 2022-03-04 17:15 | disposition home health service (06) | DRG 872 ==
LOC: ED 17:10 → AC 17:14
PROVIDERS: Family Medicine; Internal Medicine; Student in an Organized Health Care Education/Training Program; Admitting Provider Neuromusculoskeletal Medicine, Sports Medicine; Emergency Provider Family Medicine Addiction Medicine; PCP Internal Medicine; Referring Provider Family Medicine Addiction Medicine; Visit Provider Neuromusculoskeletal Medicine, Sports Medicine
DX: A41.9 Sepsis, unspecified organism (principal); N17.9 Acute kidney failure, unspecified; N18.4 Chronic kidney disease, stage 4 (severe); R65.20 Severe sepsis without septic shock; N30.10 Interstitial cystitis (chronic) without hematuria; N20.0 Calculus of kidney; B96.29 Other Escherichia coli [E. coli] as the cause of diseases classified elsewhere; E86.0 Dehydration; F41.1 Generalized anxiety disorder; G89.29 Other chronic pain; M54.9 Dorsalgia, unspecified; F17.210 Nicotine dependence, cigarettes, uncomplicated; Z20.822 Contact with and (suspected) exposure to COVID-19
CPT/HCPCS: 36415; 71045; 74176; 76770; 80048; 80053; 80076; 81001; 83605; 83690; 83735; 84484; 85007; 85025; 85610; 85730; 86140; 86850; 86900; 86901; 87040; 87077; 87086; 87150; 87186; 87635; 93005; 93010; 96365; 96367; 96375; 99284; 99291; C9803; J1170; J1335; J1644; J2405; J2543

== ENCOUNTER → 2022-03-06 14:19 | Outpatient (ROUT) | payer OTHER, SELFPAY ==
[2022-02-26 18:43] VITALS: BMI 24.4
[2022-03-06 14:39] LABS: Alanine Aminotransferase 32 IU/L (<35); Albumin 3.3 g/dL (3.5-5.0); Albumin Globulin Ratio 0.8 (1.0-2.8); Alkaline Phosphatase 232 U/L (38-126); Aspartate Aminotransferase 20 IU/L (14-36); BUN Creatinine Ratio 10.8 (6-22); Bilirubin Total 0.5 mg/dL (0.2-1.3); Blood Urea Nitrogen 30 mg/dL (7-17); Calcium 9.6 mg/dL (8.4-10.2); Carbon Dioxide 12 mmol/L (22-32); Chloride 112 mmol/L (98-107); Estimated Glomerular Filt Rate 20 mL/min (>60); Globulin 3.9 g/dL (1.7-4.1); Glucose 116 mg/dL (70-100); HEMOLYSIS 29 (0-50); Sodium 139 mmol/L (137-145); Total Protein 7.2 g/dL (6.3-8.2)
== END ==
PROVIDERS: PCP Internal Medicine; Visit Provider Internal Medicine
DX: N18.4 Chronic kidney disease, stage 4 (severe) (principal)
CPT/HCPCS: 80053

== ENCOUNTER 2022-03-12 07:30 | Emergency (ER) | payer OTHER, SELFPAY ==
[2022-03-12] VITALS (15 sets, daily range): BP systolic 93–120; BP diastolic 56–72; PULSE 81–92; RESP 18; TEMP 36.4–37.1; O2SAT 93–99; BMI 23.6
--- NOTE | 2022-03-12 07:47 | ED_ITS ---
HPI - General Adult General Chief complaint: Recheck/Abnormal Lab/Rx Stated complaint: sent by Time Seen by Provider: 03/12/22 07:38 History of Present Illness HPI narrative: Ms. Vizcarra is a 56-year-old woman with a recent hospitalization for pyelonephritis and currently still receiving home infusion IV antibiotics. Today is her last day. She is been having routine outpatient blood draws recently and was told 48 hours ago to come to the hospital because of concerning renal function. The patient reports significant fatigue over the past weeks. She knows that she has poor kidney function baseline. She has not been told that she needs dialysis immediately. She denies nausea, vomiting, fever, chest pain, shortness of breath or other severe symptoms, only severe fatigue. She was admitted to the hospital for pyelonephritis and [place] for over a week and discharged just recently and is still on the IV infusion as an outpatient. Prior to that she was treated with Augmentin for a sinus infection. Her past medical history includes pyelonephritis, renal insufficiency, PTSD, interstitial cystitis, C difficile colitis. Related Data Home Medications Medication Instructions Recorded Confirmed clindamycin phosphate 1 % topical 1 applic topical DIRECTED 07/28/18 02/26/22 gel clonazepam 0.5 mg tablet 0.5 mg PO DAILY 07/28/18 02/26/22 levothyroxine 50 mcg tablet 50 mcg PO DAILY 07/28/18 02/26/22 methocarbamol 500 mg tablet 500 mg PO Q8H 07/28/18 02/26/22 azelastine 137 mcg (0.1 %) nasal 2 spray intranasal QAM 02/26/22 02/26/22 spray aerosol cetirizine 10 mg tablet 10 mg PO QAM 02/26/22 02/26/22 fluticasone propionate 50 50 mcg intranasal QAM 02/26/22 02/26/22 mcg/actuation nasal spray,suspension nortriptyline 10 mg capsule 10 mg PO QPM 02/26/22 02/26/22 ondansetron 4 mg disintegrating 4 mg translingual PRN PRN Nausea 02/26/22 02/26/22 tablet pantoprazole 40 mg tablet,delayed 40 mg PO QAM 02/26/22 02/26/22 release solifenacin 5 mg tablet 5 mg PO BID 02/26/22 02/26/22 Previous Rx's Medication Instructions Recorded oxycodone 10 mg tablet 10 mg PO Q4-6H PRN pain 7 days #20 03/04/22 tabs Allergies Allergy/AdvReac Type Severity Reaction Status Date / Time iodine [IODINE] Allergy Unknown DRINKING Verified 02/26/22 14:07 CONTRAST GIVES HER WELTS ertapenem [ERTAPENEM] AdvReac Unknown rise in Verified 03/04/22 10:41 LFTs?? per [facility] records prednisone [PREDNISONE] AdvReac Unknown GETS Verified 03/04/22 10:42 ENRAGED AND SKIN IS CRAWLING Review of Systems Review of Systems Narrative: Complete review of systems is negative other than as noted above. Patient History Medical History Chronic back pain Migraine headache Nephrolithiasis Surgical History History of lumbar laminectomy Family History (Updated 07/28/18 @ 13:10 by Jessa Pedersen MD) Mother Hypertension Father Kidney stones Social History household members: family and friend(s) Smoking Status: Current every day smoker alcohol intake: never Smoking Status: Current every day smoker alcohol intake frequency: holidays/special occasions only Substance Use Type: does not use Exam Narrative Exam Narrative: GENERAL: Alert, cooperative and in no distress. HEAD: Atraumatic. Normocephalic. EYES: Sclera are clear without icterus. Extraocular movements are full. NECK: Supple. Full range of motion. CARDIOVASCULAR: Normal rate and rhythm without murmur gallop or rub. RESPIRATORY: Clear to auscultation. Breath sounds equal bilaterally. No wheezes, rales, or rhonchi. GASTROINTESTINAL: Abdomen soft, non-tender, nondistended. EXTREMITIES: No edema, full range of motion. No obvious trauma. BACK: Normal inspection, no CVA tenderness. NEURO: Nonfocal examination, normal speech, normal gait. SKIN: No rash or erythema of visible areas PSYCH: Normally oriented. Normal range of affect. Appropriate behavior Initial Vital Signs Initial Vital Signs: Vital Signs Temperature 97.6 F 03/12/22 07:34 Pulse Rate 81 03/12/22 07:34 Respiratory Rate 18 03/12/22 07:34 Blood Pressure 105/71 03/12/22 07:34 Pulse Oximetry 99 03/12/22 07:34 Oxygen Delivery Method 03/12/22 07:34 Course Consultations Consultation #1: Spoke just now to Dr. Aguilera from Nephrology at 0918. He recommended discontinuing all antihypertensives and give her 2 L of saline IV and outpatient follow-up. Vital Signs Vital signs: Vital Signs - 8 hr 03/12/22 07:34 Temperature 97.6 F Pulse Rate 81 Respiratory Rate 18 Blood Pressure 105/71 Pulse Oximetry 99 Oxygen Delivery Method Room Air Discharge Plan Departure Prescriptions: No Action methocarbamol 500 mg tablet 500 mg PO Q8H Label Comments: take 1 tablet by mouth every 8 hours clonazepam 0.5 mg tablet 0.5 mg PO DAILY Label Comments: take 1 tablet by mouth twice a day if needed for anxiety UP TO 10 DOSES. MUST LAST 30 DAYS. patient states takes once daily prn levothyroxine 50 mcg tablet 50 mcg PO DAILY clindamycin phosphate 1 % gel 1 applic topical DIRECTED cetirizine 10 mg tablet 10 mg PO QAM Label Comments: take 1 tablet by mouth once daily if needed for ALLERGIES pantoprazole 40 mg tablet,delayed release (DR/EC) 40 mg PO QAM Label Comments: take 1 tablet by mouth daily 30 MINUTES PRIOR TO A MEAL nortriptyline 10 mg capsule 10 mg PO QPM Label Comments: take 3 capsules by mouth nightly azelastine 137 mcg (0.1 %) aerosol,spray 2 spray INTRANASAL QAM Label Comments: inhale 1 spray into each nostril daily ondansetron 4 mg tablet,disintegrating 4 mg translingual PRN PRN (Reason: Nausea) Label Comments: dissolve 1 tablet ON TONGUE three times a day if needed for nausea OR vomiting fluticasone propionate 50 mcg/actuation spray,suspension 50 mcg INTRANASAL QAM Label Comments: instill 1 spray into each nostril once daily solifenacin 5 mg tablet 5 mg PO BID Label Comments: take 1 tablet by mouth twice a day oxycodone 10 mg tablet 10 mg PO Q4-6H MDD 4 PRN (Reason: pain) 7 Days Qty: 20 0RF Referrals: Vega Ang MD [Primary Care Provider] -
[2022-03-12 08:35] LABS: Add Manual Diff / Slide Review NO; Basophils Absolute Auto 500 /uL (0-100); Basophils Percent Auto 5.5 % (0-2); Eosinophils Absolute Auto 200 /uL (0-450); Hematocrit 31.9 % (36-46); Hemoglobin 10.4 g/dL (12.0-16.0); Lymphocytes Absolute Auto 1700 /uL (1100-4500); Lymphocytes Percent Auto 19.3 % (25-40); Mean Corpuscular HGB Conc 32.5 % (30-36); Mean Corpuscular Hemoglobin 30.3 PG (26-34); Mean Corpuscular Volume 93.3 fL (80-100); Monocytes Absolute Auto 700 /uL (0-900); Monocytes Percent Auto 7.7 % (3-14); Neutrophils Absolute Auto 5700 /uL (1500-7000); Neutrophils Percent Auto 65.5 % (50-75); Platelet Count 473 X10^3/uL (150-400); Red Blood Cell Count 3.42 X10^6/uL (4.0-5.2); Red Cell Distribution Width 14.7 % (11.6-14.8); White Blood Cell Count 8.8 X10^3/uL (4.5-11.0)
[2022-03-12 08:37] LABS: Lactate (Lactic Acid) 0.6 mmol/L (0.7-2.1)
[2022-03-12 08:43] LABS: Alanine Aminotransferase 13 IU/L (<35); Albumin 3.5 g/dL (3.5-5.0); Albumin Globulin Ratio 0.9 (1.0-2.8); Alkaline Phosphatase 153 U/L (38-126); Aspartate Aminotransferase 17 IU/L (14-36); BUN Creatinine Ratio 9.9 (6-22); Bilirubin Total 0.4 mg/dL (0.2-1.3); Blood Urea Nitrogen 30 mg/dL (7-17); Calcium 9.8 mg/dL (8.4-10.2); Carbon Dioxide 12 mmol/L (22-32); Chloride 112 mmol/L (98-107); Estimated Glomerular Filt Rate 18 mL/min (>60); Globulin 4.1 g/dL (1.7-4.1); Glucose 135 mg/dL (70-100); Lipase 241 U/L (23-300); Potassium 3.5 mmol/L (3.4-5.1); Sodium 137 mmol/L (137-145); Total Protein 7.6 g/dL (6.3-8.2)
[2022-03-12] MEDS: SODIUM CHLORIDE 0.9% 1,000 ML 2000 ML IV (09:41)
[2022-03-13 14:27] LABS: Alanine Aminotransferase 12 IU/L (<35); Albumin 3.4 g/dL (3.5-5.0); Albumin Globulin Ratio 0.9 (1.0-2.8); Alkaline Phosphatase 147 U/L (38-126); Aspartate Aminotransferase 13 IU/L (14-36); BUN Creatinine Ratio 9.2 (6-22); Bilirubin Total 0.4 mg/dL (0.2-1.3); Blood Urea Nitrogen 27 mg/dL (7-17); Calcium 9.7 mg/dL (8.4-10.2); Carbon Dioxide 13 mmol/L (22-32); Chloride 110 mmol/L (98-107); Estimated Glomerular Filt Rate 19 mL/min (>60); Globulin 3.7 g/dL (1.7-4.1); Glucose 89 mg/dL (70-100); HEMOLYSIS < 15 (0-50); Potassium 4.5 mmol/L (3.4-5.1); Sodium 136 mmol/L (137-145); Total Protein 7.1 g/dL (6.3-8.2)
== END 2022-03-12 10:56 | disposition home or self-care (01) ==
PROVIDERS: Emergency Provider Family Medicine Addiction Medicine; PCP Internal Medicine
DX: N17.9 Acute kidney failure, unspecified (principal)
CPT/HCPCS: 80053; 83605; 83690; 83735; 85025; 96360; 99283; 99284

== ENCOUNTER → 2022-03-15 15:53 | Outpatient (ROUT) | payer OTHER, SELFPAY ==
[2022-02-26 18:43] VITALS: BMI 24.4
[2022-03-15 16:14] LABS: Alanine Aminotransferase 10 IU/L (<35); Albumin 3.6 g/dL (3.5-5.0); Alkaline Phosphatase 140 U/L (38-126); Aspartate Aminotransferase 13 IU/L (14-36); BUN Creatinine Ratio 10.5 (6-22); Bilirubin Total 0.4 mg/dL (0.2-1.3); Blood Urea Nitrogen 28 mg/dL (7-17); Calcium 9.6 mg/dL (8.4-10.2); Carbon Dioxide 13 mmol/L (22-32); Chloride 108 mmol/L (98-107); Estimated Glomerular Filt Rate 21 mL/min (>60); Globulin 3.7 g/dL (1.7-4.1); Glucose 122 mg/dL (70-100); HEMOLYSIS < 15 (0-50); Potassium 4.1 mmol/L (3.4-5.1); Sodium 135 mmol/L (137-145); Total Protein 7.3 g/dL (6.3-8.2)
== END ==
PROVIDERS: PCP Internal Medicine; Visit Provider Internal Medicine
DX: N17.9 Acute kidney failure, unspecified (principal); N18.4 Chronic kidney disease, stage 4 (severe)
CPT/HCPCS: 80053

== ENCOUNTER → 2022-03-18 09:00 | Outpatient (CLI) | payer OTHER, SELFPAY ==
[2022-02-26 18:43] VITALS: BMI 24.4
[2022-03-18 10:45] LABS: Alanine Aminotransferase 10 IU/L (<35); Albumin 3.7 g/dL (3.5-5.0); Alkaline Phosphatase 127 U/L (38-126); Aspartate Aminotransferase 13 IU/L (14-36); BUN Creatinine Ratio 11.1 (6-22); Bilirubin Total 0.4 mg/dL (0.2-1.3); Blood Urea Nitrogen 28 mg/dL (7-17); Calcium 9.4 mg/dL (8.4-10.2); Carbon Dioxide 15 mmol/L (22-32); Chloride 108 mmol/L (98-107); Estimated Glomerular Filt Rate 22 mL/min (>60); Globulin 3.8 g/dL (1.7-4.1); Glucose 119 mg/dL (70-100); HEMOLYSIS < 15 (0-50); Potassium 4.4 mmol/L (3.4-5.1); Sodium 137 mmol/L (137-145); Total Protein 7.5 g/dL (6.3-8.2)
== END ==
PROVIDERS: PCP Internal Medicine; Referring Provider Internal Medicine Nephrology; Visit Provider Internal Medicine Nephrology
DX: N18.32 Chronic kidney disease, stage 3b (principal)
CPT/HCPCS: 36415; 80053

== ENCOUNTER → 2022-08-19 10:33 | Outpatient (CLI) | payer MEDICARE, SELFPAY ==
[2022-08-19 12:29] LABS: TSH w/ Reflex to FT4 3.71 uIU/mL (0.47-4.68)
== END ==
PROVIDERS: PCP Internal Medicine; Referring Provider Internal Medicine; Visit Provider Internal Medicine
DX: E03.9 Hypothyroidism, unspecified (principal)
CPT/HCPCS: 36415; 84443

== ENCOUNTER → 2022-08-21 08:56 | Outpatient (CLI) | payer MEDICARE, SELFPAY ==
[2022-08-21 09:45] LABS: Hematocrit 40.6 % (36-46); Hemoglobin 13.8 g/dL (12.0-16.0); Mean Corpuscular HGB Conc 33.9 % (30-36); Mean Corpuscular Hemoglobin 31.8 PG (26-34); Platelet Count 365 X10^3/uL (150-400); Red Blood Cell Count 4.33 X10^6/uL (4.0-5.2); Red Cell Distribution Width 14.3 % (11.6-14.8); White Blood Cell Count 6.9 X10^3/uL (4.5-11.0)
[2022-08-21 10:11] LABS: Alanine Aminotransferase 11 IU/L (<35); Albumin Globulin Ratio 1.1 (1.0-2.8); Alkaline Phosphatase 85 U/L (38-126); Aspartate Aminotransferase 18 IU/L (14-36); BUN Creatinine Ratio 18.6 (6-22); Bilirubin Total 0.4 mg/dL (0.2-1.3); Blood Urea Nitrogen 40 mg/dL (7-17); Calcium 9.7 mg/dL (8.4-10.2); Carbon Dioxide 22 mmol/L (22-32); Chloride 103 mmol/L (98-107); Cholesterol 258 mg/dL (140-199); Estimated Glomerular Filt Rate 27 mL/min (>60); Globulin 3.6 g/dL (1.7-4.1); Glucose 106 mg/dL (70-100); HDL Cholesterol 51 mg/dL (40-60); HEMOLYSIS < 15 (0-50); LDL Cholesterol Calculated 150 mg/dL (<100); Potassium 4.9 mmol/L (3.4-5.1); Sodium 133 mmol/L (137-145); Total Protein 7.6 g/dL (6.3-8.2); Triglycerides 285 mg/dL (35-150)
[2022-08-21 10:40] LABS: TSH w/ Reflex to FT4 4.26 uIU/mL (0.47-4.68)
[2022-08-23 08:42] LABS: Calcium 9.2 mg/dL (8.7-10.2); Parathyroid Hormone, Intact 25 pg/mL (15-65)
== END ==
PROVIDERS: PCP Internal Medicine; Referring Provider Internal Medicine; Visit Provider Internal Medicine
DX: E03.9 Hypothyroidism, unspecified (principal); I10 Essential (primary) hypertension; E27.8 Other specified disorders of adrenal gland; N18.4 Chronic kidney disease, stage 4 (severe); I12.9 Hypertensive chronic kidney disease with stage 1 through stage 4 chronic kidney disease, or unspecified chronic kidney disease
CPT/HCPCS: 36415; 80053; 80061; 82310; 83970; 84443; 85027

== ENCOUNTER → 2022-10-08 09:53 | Outpatient (CLI) | payer MEDICARE, SELFPAY ==
[2022-10-08 11:06] LABS: Hematocrit 39.6 % (36-46); Hemoglobin 13.5 g/dL (12.0-16.0); Mean Corpuscular HGB Conc 34.1 % (30-36); Mean Corpuscular Hemoglobin 32.1 PG (26-34); Mean Corpuscular Volume 94.4 fL (80-100); Platelet Count 309 X10^3/uL (150-400); Red Cell Distribution Width 14.4 % (11.6-14.8); White Blood Cell Count 9.1 X10^3/uL (4.5-11.0)
[2022-10-08 11:26] LABS: Erythrocyte Sedimentation Rate 16 MM/HR (0-20)
[2022-10-08 11:29] LABS: Alanine Aminotransferase 14 IU/L (<35); Albumin 4.1 g/dL (3.5-5.0); Albumin Globulin Ratio 1.3 (1.0-2.8); Alkaline Phosphatase 94 U/L (38-126); Aspartate Aminotransferase 24 IU/L (14-36); BUN Creatinine Ratio 12.2 (6-22); Bilirubin Total 0.4 mg/dL (0.2-1.3); Blood Urea Nitrogen 28 mg/dL (7-17); Calcium 9.3 mg/dL (8.4-10.2); Carbon Dioxide 25 mmol/L (22-32); Chloride 101 mmol/L (98-107); Estimated Glomerular Filt Rate 25 mL/min (>60); Globulin 3.1 g/dL (1.7-4.1); Glucose 117 mg/dL (70-100); HEMOLYSIS < 15 (0-50); Sodium 134 mmol/L (137-145); Total Protein 7.2 g/dL (6.3-8.2)
[2022-10-08 11:38] LABS: Procalcitonin 0.06 ng/mL (<0.5)
[2022-10-08 11:46] LABS: C-Reactive Protein Quant 12.9 mg/dL (<1.0)
[2022-10-08 11:53] LABS: Appearance Urine UA SL CLOUDY; Bilirubin Urine UA NEGATIVE (NEGATIVE); Color Urine UA YELLOW; Glucose Urine UA NEGATIVE (Negative); Ketones Urine UA NEGATIVE (NEGATIVE); Leukocyte Esterase Urine UA 2+ (NEGATIVE); Nitrite Urine UA NEGATIVE (Negative); Occult Blood Urine UA 2+ (Negative); Protein Urine UA 2+ (Negative); Urobilinogen Urine UA 0.2 E.U./dL (0.2)
[2022-10-08 12:04] LABS: Bacteria Urine Occasional (0-1); Culture Indicated Urine Specimen Cultured; RBC Urine 1-5/HPF (0-5/HPF); Squamous Epithelial Cell Urine None Seen (0-5/HPF); WBC Urine 30-100/HPF (0-5/HPF)
== END ==
PROVIDERS: PCP Internal Medicine; Referring Provider Internal Medicine; Visit Provider Internal Medicine
DX: A41.51 Sepsis due to Escherichia coli [E. coli] (principal)
CPT/HCPCS: 36415; 80053; 81001; 84145; 85027; 85651; 86140; 87077; 87086; 87186

== ENCOUNTER → 2022-10-18 08:52 | Outpatient (CLI) | payer MEDICARE, SELFPAY ==
[2022-10-18 09:30] LABS: Appearance Urine UA CLEAR; Bilirubin Urine UA NEGATIVE (NEGATIVE); Color Urine UA YELLOW; Glucose Urine UA NEGATIVE (Negative); Ketones Urine UA NEGATIVE (NEGATIVE); Leukocyte Esterase Urine UA NEGATIVE (NEGATIVE); Nitrite Urine UA NEGATIVE (Negative); Occult Blood Urine UA 1+ (Negative); Protein Urine UA 2+ (Negative); Urobilinogen Urine UA 0.2 E.U./dL (0.2)
[2022-10-18 09:40] LABS: Amorphous Sediment Urine 1+; Bacteria Urine Few (2-10); Culture Indicated Urine Specimen Cultured; RBC Urine 10-30/HPF (0-5/HPF); Squamous Epithelial Cell Urine 0-1 /HPF (0-5/HPF); WBC Urine 1-5/HPF (0-5/HPF); pH Urine UA 6.5 (4.5-8.0)
== END ==
PROVIDERS: PCP Internal Medicine; Referring Provider Internal Medicine; Visit Provider Internal Medicine
DX: N39.0 Urinary tract infection, site not specified (principal)
CPT/HCPCS: 81001; 87086

== ENCOUNTER → 2022-11-21 13:01 | Outpatient (CLI) | payer MEDICARE, SELFPAY ==
[2022-11-21 14:58] LABS: Alanine Aminotransferase 23 IU/L (<35); Albumin 4.4 g/dL (3.5-5.0); Albumin Globulin Ratio 1.2 (1.0-2.8); Alkaline Phosphatase 84 U/L (38-126); Aspartate Aminotransferase 24 IU/L (14-36); BUN Creatinine Ratio 15.2 (6-22); Bilirubin Total 0.6 mg/dL (0.2-1.3); Blood Urea Nitrogen 34 mg/dL (7-17); Calcium 9.4 mg/dL (8.4-10.2); Carbon Dioxide 23 mmol/L (22-32); Chloride 100 mmol/L (98-107); Estimated Glomerular Filt Rate 25 mL/min (>60); Globulin 3.7 g/dL (1.7-4.1); Glucose 117 mg/dL (70-100); HEMOLYSIS 38 (0-50); Potassium 4.4 mmol/L (3.4-5.1); Sodium 134 mmol/L (137-145); Total Protein 8.1 g/dL (6.3-8.2)
[2022-11-21 16:38] LABS: Appearance Urine UA CLOUDY; Bilirubin Urine UA NEGATIVE (NEGATIVE); Color Urine UA YELLOW; Glucose Urine UA NEGATIVE (Negative); Ketones Urine UA NEGATIVE (NEGATIVE); Leukocyte Esterase Urine UA 2+ (NEGATIVE); Nitrite Urine UA NEGATIVE (Negative); Occult Blood Urine UA 2+ (Negative); Protein Urine UA 2+ (Negative); Specific Gravity Urine UA 1.015 (1.000-1.035); Urobilinogen Urine UA 0.2 E.U./dL (0.2)
[2022-11-21 16:56] LABS: Bacteria Urine Few (2-10); Culture Indicated Urine Specimen Cultured; RBC Urine 1-5/HPF (0-5/HPF); Squamous Epithelial Cell Urine 0-1 /HPF (0-5/HPF); WBC Urine >100/HPF (0-5/HPF)
== END ==
PROVIDERS: PCP Internal Medicine; Referring Provider Internal Medicine; Visit Provider Internal Medicine
DX: E87.6 Hypokalemia (principal); N39.0 Urinary tract infection, site not specified
CPT/HCPCS: 36415; 80053; 81001; 87077; 87086; 87186

== ENCOUNTER 2022-12-31 12:14 | Emergency (ER) | payer MEDICARE, SELFPAY ==
[2022-12-31] VITALS (7 sets, daily range): BP systolic 127–164; BP diastolic 84–96; PULSE 84–112; RESP 14–20; TEMP 36.9; O2SAT 96–98; BMI 25.0
[2022-12-31 13:00] LABS: Add Manual Diff / Slide Review NO; Basophils Absolute Auto 200 /uL (0-100); Basophils Percent Auto 2.4 % (0-2); Eosinophils Absolute Auto 200 /uL (0-450); Eosinophils Percent Auto 2.2 % (2-4); Hematocrit 42.6 % (36-46); Hemoglobin 14.4 g/dL (12.0-16.0); Lymphocytes Absolute Auto 2500 /uL (1100-4500); Lymphocytes Percent Auto 30.1 % (25-40); Mean Corpuscular HGB Conc 33.7 % (30-36); Mean Corpuscular Hemoglobin 32.5 PG (26-34); Mean Corpuscular Volume 96.4 fL (80-100); Monocytes Absolute Auto 600 /uL (0-900); Monocytes Percent Auto 6.8 % (3-14); Neutrophils Absolute Auto 4900 /uL (1500-7000); Neutrophils Percent Auto 58.5 % (50-75); Platelet Count 342 X10^3/uL (150-400); Red Blood Cell Count 4.42 X10^6/uL (4.0-5.2); Red Cell Distribution Width 13.5 % (11.6-14.8); White Blood Cell Count 8.4 X10^3/uL (4.5-11.0)
[2022-12-31] MEDS: ONDANSETRON 4 MG/2 ML INJ IV (13:11)
[2022-12-31 13:17] LABS: Alanine Aminotransferase 21 IU/L (<35); Albumin 4.5 g/dL (3.5-5.0); Albumin Globulin Ratio 1.3 (1.0-2.8); Alkaline Phosphatase 65 U/L (38-126); Aspartate Aminotransferase 27 IU/L (14-36); BUN Creatinine Ratio 16.3 (6-22); Bilirubin Total 0.6 mg/dL (0.2-1.3); Blood Urea Nitrogen 38 mg/dL (7-17); Calcium 9.7 mg/dL (8.4-10.2); Carbon Dioxide 15 mmol/L (22-32); Chloride 107 mmol/L (98-107); Estimated Glomerular Filt Rate 24 mL/min (>60); Globulin 3.5 g/dL (1.7-4.1); Glucose 177 mg/dL (70-100); HEMOLYSIS < 15 (0-50); Lipase 80 U/L (23-300); Potassium 4.2 mmol/L (3.4-5.1); Sodium 132 mmol/L (137-145)
--- NOTE | 2022-12-31 14:28 | ED.ABDPAIN ---
HPI - Abdominal Pain General Chief Complaint: Urogenital-Female Stated Complaint: Thinks kidney stone Time Seen by Provider: 12/31/22 14:00 Source: patient Mode of arrival: Ambulatory History of Present Illness HPI narrative: Patient 57-year-old female history of chronic kidney disease, with a nonfunctional right kidney, medullary kidney disease, kidney stones presenting today with 1 week of left flank pain. She reports that it is not presenting like a normal kidney stone it is not radiating down to her groin or pelvic region. She reports it is going straight through like a burning sensation. It has been there for constantly for about a week. She is nauseous at times no vomiting or fever. Although she does report that she had fever about 4 days ago which is very atypical for her she had a sore throat and a mild cough. She is chronically on pain medication for chronic back pain and she reports it is not helping. Related Data Home Medications Medication Instructions Recorded Confirmed clindamycin phosphate 1 % topical 1 applic topical DIRECTED 07/28/18 10/11/22 gel clonazepam 0.5 mg tablet 0.5 mg PO DAILY 07/28/18 10/11/22 cetirizine 10 mg tablet 10 mg PO QAM 02/26/22 10/11/22 pantoprazole 40 mg tablet,delayed 40 mg PO QAM 02/26/22 10/11/22 release solifenacin 5 mg tablet 5 mg PO BID 02/26/22 10/11/22 etonogestrel 68 mg subdermal subdermal 06/20/22 10/11/22 implant (Nexplanon) levothyroxine 75 mcg tablet 75 mcg PO DAILY 06/20/22 10/11/22 naloxone 4 mg/actuation nasal spray 4 mg intranasal Q2M PRN 06/20/22 10/11/22 potassium citrate 10 mEq (1,080 20 meq PO TID 06/20/22 10/11/22 mg) tablet,extended release sodium bicarbonate 650 mg tablet 1,300 mg PO BID 06/20/22 10/11/22 spironolactone 25 mg tablet 12.5 mg PO DAILY 06/20/22 10/11/22 sumatriptan succinate 100 mg tablet See Rx Instructions PO .COMPLEX 06/20/22 10/11/22 tamsulosin 0.4 mg capsule 0.4 mg PO BEDTIME 06/20/22 10/11/22 nortriptyline 10 mg capsule 50 mg PO QPM 08/21/22 10/11/22 torsemide 20 mg tablet 20 mg PO DAILY 08/21/22 10/11/22 Previous Rx's Medication Instructions Recorded fluticasone propionate 50 50 mcg intranasal QAM #16 grams 07/11/22 mcg/actuation nasal spray,suspension methocarbamol 500 mg tablet 500 mg PO Q8H #90 tabs 07/11/22 amlodipine 5 mg tablet 5 mg PO DAILY #90 tabs 08/21/22 duloxetine 20 mg capsule,delayed 20 mg PO BID #180 caps 08/21/22 release oxycodone 10 mg tablet See Rx Instructions PO QID #150 10/11/22 tabs oxycodone 10 mg tablet See Rx Instructions PO QID #150 10/11/22 tabs oxycodone 10 mg tablet See Rx Instructions PO QID PRN 10/11/22 pain #150 tabs azelastine 137 mcg (0.1 %) nasal 2 spray intranasal QAM #30 mL 10/17/22 spray aerosol ondansetron 8 mg disintegrating 8 mg PO BID #30 tabs 10/17/22 tablet fosfomycin tromethamine 3 gram 3 g PO ONCE #1 ea 11/21/22 oral packet lorazepam 0.5 mg tablet See Rx Instructions PO DAILY PRN 12/09/22 flight anxiety #4 tabs Allergies Allergy/AdvReac Type Severity Reaction Status Date / Time iodine [IODINE] Allergy Unknown DRINKING Verified 10/11/22 13:39 CONTRAST GIVES HER WELTS ertapenem [ERTAPENEM] AdvReac Unknown rise in Verified 10/11/22 13:39 LFTs?? per [facility] records prednisone [PREDNISONE] AdvReac Unknown GETS Verified 10/11/22 13:39 ENRAGED AND SKIN IS CRAWLING Review of Systems Review of Systems ROS Unobtainable: All systems reviewed & are unremarkable except as noted in HPI and below Patient History Medical History Acquired hypothyroidism Adrenal mass Anxiety (~2005) Bilateral carpal tunnel syndrome Carpal tunnel syndrome (~2021) Chronic back pain (~1997) Chronic low back pain Chronic, continuous use of opioids CKD stage 4 secondary to hypertension Critical illness polyneuropathy Depression, major, recurrent E-coli UTI Essential hypertension Foot pain (~2017) Frequent UTI (~2021) GERD without esophagitis History of frequent headaches (~2018) Interstitial cystitis Migraine headache (~2018) Nephrolithiasis (~2006) Peripheral neuropathy (~2006) Proteinuria (~2006) Recurrent sinusitis (~2019) Recurrent UTI Seasonal allergies (~2018) Vocal cord paralysis (~2006) Surgical History Anesthesia Bladder distension H/O section H/O foot surgery H/O lithotripsy H/O prior ablation treatment H/O shoulder surgery History of cholecystectomy History of lumbar laminectomy Family History Mother Hypertension Thyroid disease Heart disease Father Kidney stones ESRF (end stage renal failure) Heart disease Hypertension High cholesterol Grandfather High cholesterol Hypertension Grandmother Diabetes mellitus Heart disease Hypertension High cholesterol Dementia Grandfather Heart disease Hypertension Grandmother Hypertension Stroke Social History household members: family and friend(s) Smoking Status: Current every day smoker alcohol intake: never Smoking Status: Current every day smoker alcohol intake frequency: holidays/special occasions only Substance Use Type: does not use Exam Initial Vital Signs Initial Vital Signs: Vital Signs Temperature 98.4 F 12/31/22 12:31 Pulse Rate 112 H 12/31/22 12:31 Respiratory Rate 15 12/31/22 12:31 Blood Pressure 127/84 12/31/22 12:31 Pulse Oximetry 98 12/31/22 12:31 Oxygen Delivery Method Room Air 12/31/22 12:31 GENERAL: Alert 57-year-old female and in [no acute] distress. HEENT: Head atraumatic,EOMI, pupils reactive, face symmetric, mucous membranes CARDIOVASCULAR: Regular rate and rhythm without murmurs, rubs or gallops. RESPIRATORY: Breath sounds equal bilaterally, no wheezes rales or rhonchi. ABDOMEN: Soft, nontender. Normoactive bowel sounds all 4 quadrants. No guarding or rebound. : No CVA tenderness BACK: Left lower lumbar pain EXTREMITIES: Normal range of motion, no clubbing or edema. Neurovascularly intact NEUROLOGICAL: Alert and oriented x4.Normal gait and speech. SKIN: Warm, dry, no laceration, no petechiae, no rashes or lesions. Course Orders Ordered: ED Orders 12/31/22 12:35 EKG-12 Lead Stat 12/31/22 12:40 Urine Culture Stat Urine Microscopic Stat 12/31/22 12:45 Complete Blood Count AUTO DIFF Stat Comprehensive Metabolic Panel Stat Lipase Stat 12/31/22 14:33 CT kidney ureter bladder (KUB) Stat Discontinued Medications Hydromorphone HCl (Hydromorphone 1 Mg Inj) 1 mg IV NOW ONE Stop: 12/31/22 16:35 Last Admin: 12/31/22 16:47 Dose: 1 mg Documented By: LARISSA Morphine Sulfate (Morphine 4 Mg/Ml Inj) 4 mg IV NOW ONE Stop: 12/31/22 14:29 Last Admin: 12/31/22 14:49 Dose: 4 mg Documented By: LARISSA Ondansetron HCl (Ondansetron 4 Mg/2 Ml Inj) 4 mg IV NOW PRN PRN Reason: Nausea And Vomiting Last Admin: 12/31/22 13:11 Dose: 4 mg Documented By: LARISSA Ondansetron HCl (Ondansetron 4 Mg/2 Ml Inj) 4 mg IV NOW ONE Stop: 12/31/22 14:29 Vital Signs Vital signs: Vital Signs - 8 hr 12/31/22 12:31 12/31/22 13:07 12/31/22 13:14 Temperature 98.4 F Pulse Rate 112 H 96 H Respiratory Rate 15 20 Blood Pressure 127/84 149/91 H Pulse Oximetry 98 Oxygen Delivery Method Room Air 12/31/22 13:14 12/31/22 13:30 12/31/22 14:00 Temperature Pulse Rate 91 H 86 Respiratory Rate 18 15 Blood Pressure Pulse Oximetry 96 97 96 Oxygen Delivery Method 12/31/22 14:12 12/31/22 17:18 Temperature Pulse Rate 84 Respiratory Rate 14 Blood Pressure 164/96 H Pulse Oximetry 97 Oxygen Delivery Method MDM - Abdominal Pain Lab Data 12/31/22 12:45 12/31/22 12:45 Labs: Lab Results 12/31/22 12/31/22 12/31/22 Range/Units 12:40 12:45 12:45 WBC 8.4 (4.5-11.0) X10^3/uL RBC 4.42 (4.0-5.2) X10^6/uL Hgb 14.4 (12.0-16.0) g/dL Hct 42.6 (36-46) % MCV 96.4 (80-100) fL MCH 32.5 (26-34) PG MCHC 33.7 (30-36) % RDW 13.5 (11.6-14.8) % Plt Count 342 (150-400) X10^3/uL Neut % (Auto) 58.5 (50-75) % Lymph % (Auto) 30.1 (25-40) % [place] % (Auto) 6.8 (3-14) % Eos % (Auto) 2.2 (2-4) % Baso % (Auto) 2.4 H (0-2) % Neut # (Auto) 4900 (1746-3160) /uL Lymph # (Auto) 2500 (4861-1929) /uL [place] # (Auto) 600 (0-900) /uL Eos # (Auto) 200 (0-450) /uL Baso # (Auto) 200 H (0-100) /uL Sodium 132 L (137-145) mmol/L Potassium 4.2 (3.4-5.1) mmol/L Chloride 107 (98-107) mmol/L Carbon Dioxide 15 L (22-32) mmol/L BUN 38 H (7-17) mg/dL Creatinine 2.33 H (0.52-1.04) mg/dL Estimated GFR 24 L (>60) mL/min BUN/Creatinine Ratio 16.3 (6-22) Glucose 177 H (70-100) mg/dL Calcium 9.7 (8.4-10.2) mg/dL Total Bilirubin 0.6 (0.2-1.3) mg/dL AST 27 (14-36) IU/L ALT 21 (<35) IU/L Alkaline Phosphatase 65 (38-126) U/L Total Protein 8.0 (6.3-8.2) g/dL Albumin 4.5 (3.5-5.0) g/dL Globulin 3.5 (1.7-4.1) g/dL Albumin/Globulin Ratio 1.3 (1.0-2.8) Lipase 80 (23-300) U/L Urine RBC 1-5/hpf (0-5/HPF) Urine WBC >100/hpf H (0-5/HPF) Ur Squamous Epith Cells None seen (0-5/HPF) Urine Bacteria Moderate (10-30) H (None) Ur Culture Indicated? Specimen cultured Point of care testing: Urine Dip Bedside Urine Glucose Negative Bedside Urine Bilirubin - Negative Bedside Urine Ketone - Negative Urine Specific [place] 1.010 Bedside Urine Occult Blood ++ Bedside Urine pH 6.0 Bedside Urine Protein + 30 Bedside Urine Urobilinogen - Negative Bedside Urine Nitrite - Negative Bedside Urine Leukocytes +++ [address] scan - abdomen/pelvis: Radiologist's Impression: PROCEDURE:? CT KIDNEY URETER BLADDER (KUB) ? INDICATIONS:? left flank pain ? TECHNIQUE:? Axial sections were acquired from the lung bases to the pubic symphysis.? Coronal and sagittal reformats were performed.? For radiation dose reduction, the following was used: ?automated exposure control, adjustment of mA and/or kV according to patient size.? ? COMPARISON:? [facility], CT, CT ABDOMEN PELVIS WO CON, 02/26/2022, 15:07.? [facility], CT, CT KIDNEY URETER BLADDER (KUB), 09/14/2018, 10:16. ? FINDINGS:? Image quality:? Excellent.? ? Lung bases:? Unremarkable.? ? Heart:? No significant findings. ? URINARY: Right Kidney:? Renal atrophy is present as well as medullary calcinosis.? Small areas of underlying nonobstructing stone cannot be definitively excluded.? Renal cysts are present bilaterally. Right Ureter:? No hydroureter.? ? Left Kidney:? Renal atrophy and medullary calcinosis is present.? Small areas of underlying stone cannot be definitively excluded.? Left Ureter:? No hydroureter.? ? Bladder:? Normal wall thickness. No stones. ? ? ? ABDOMEN: Liver:? Unremarkable.? ? Gallbladder:? Removed? ? Biliary ducts:? Unremarkable.? ? Pancreas:? Unremarkable.? ? Spleen:? Unremarkable.? ? Adrenal Glands:? Unremarkable.? ? ? Stomach and Bowel:? Stomach, small bowel loops, and colon are unremarkable.? Peritoneum:? No abnormal intraperitoneal fluid.? No free air.? ? Ventral Wall: ? No hernia.? Abdominal Nodes:? No enlarged retroperitoneal or mesenteric lymph nodes.? Vessels:? Aorta and inferior vena cava are normal in size.? ? PELVIS: Pelvic Organs:? Hysterectomy changes are present. Pelvic Nodes: Unremarkable. Miscellaneous: No inguinal hernias are seen. ? ? ? Bones:? Posterior fusion at L3-4 is present. ? IMPRESSION:? ? No acute intra-abdominal or pelvic process. ? ? ? Dictated by: Chloe Nagel M.D. on 12/31/2022 at 15:51 ? ? ECG Data Interpretation: Normal sinus rhythm rate 94 VT interval 156 QRS [address] changes similar to previous MDM Narrative Medical decision making narrative: Patient is a 57-year-old female history of multiple kidney problems presenting today with 1 week of left-sided dark pain radiating to her abdomen but not down to her pelvis. Kidney function is stable bicarb is slightly low at 15 but has previously been there. She is no nausea or vomiting. No history of diabetes or evidence of a. CT does not show any evidence of nephrolithiasis or diverticulitis. It seems to be in 1 particular spot it has been there for 1 week it is not weeping. Low suspicion for dissection. She is afebrile. She does report history of multi-drug resistant E coli, but no evidence of sepsis today. She is leukocytes in her urine micro has been sent. Previous culture from 11/21/2022 was E coli only sensitivities are ertapenem, Macrobid and Zosyn. At this time would not wait for culture to return. Discharge Plan Departure Patient Disposition: Home Clinical Impression: Back pain Instructions: Low Back Pain Activity Restrictions/Additional Instructions: *You have been diagnosed with back pain bladder *What to do: At this time follow-up with Dr. Mitchell no cause of pain. Your urine culture will take a couple days and we will call you if you should need an antibiotic *Continue to take medications as directed *Follow up with your primary care provider in 2-3 days or call [phone] *Return to ER if you should have increasing pain numbness tingling weakness isn't vomiting or any new, worsening or concerning symptoms Prescriptions: No Action fluticasone propionate 50 mcg/actuation spray,suspension 50 mcg INTRANASAL QAM Qty: 16 11RF methocarbamol 500 mg tablet 500 mg PO Q8H Qty: 90 5RF azelastine 137 mcg (0.1 %) aerosol,spray 2 spray INTRANASAL QAM Qty: 30 12RF ondansetron 8 mg tablet,disintegrating 8 mg PO BID Qty: 30 5RF fosfomycin tromethamine 3 gram packet 3 g PO ONCE Qty: 1 2RF lorazepam 0.5 mg tablet See Rx Instructions PO DAILY PRN (Reason: flight anxiety) Qty: 4 1RF Rx Instructions: 1-2 daily as needed for flight anxiety oxycodone 10 mg tablet See Rx Instructions PO QID Qty: 150 0RF Rx Instructions: orally four times daily; 2 pills in the morning, then 1 pill noon, dinner, bedtime oxycodone 10 mg tablet See Rx Instructions PO QID Qty: 150 0RF Rx Instructions: 2 pills in the morning, then 1 pill noon, dinner, bedtime oxycodone 10 mg tablet See Rx Instructions PO QID PRN (Reason: pain) Qty: 150 0RF Rx Instructions: 2 pills in the morning, then 1 pill noon, dinner, bedtime levothyroxine 75 mcg tablet 75 mcg PO DAILY Patient Comments: take 1 tablet by mouth once daily spironolactone 25 mg tablet 12.5 mg PO DAILY potassium citrate 10 mEq (1,080 mg) tablet extended release 20 meq PO TID Patient Comments: TAKE 2 TABLETS BY MOUTH THREE TIMES DAILY WITH MEALS sodium bicarbonate 650 mg tablet 1,300 mg PO BID tamsulosin 0.4 mg capsule 0.4 mg PO BEDTIME Patient Comments: take 1 capsule by mouth at bedtime sumatriptan succinate 100 mg tablet See Rx Instructions PO .COMPLEX Rx Instructions: take 1 tab at onset of headache; if no relief, may repeat 1 tab after at least 2 hrs; max = 2 tabs/24 hrs PO Nexplanon 68 mg implant subdermal naloxone 4 mg/actuation spray,non-aerosol 4 mg intranasal Q2M PRN Rx Instructions: spray 1 dose into ONE nostril; alternate nostrils w each dose until help arrives torsemide 20 mg tablet 20 mg PO DAILY amlodipine 5 mg tablet 5 mg PO DAILY Qty: 90 3RF duloxetine 20 mg capsule,delayed release(DR/EC) 20 mg PO BID Qty: 180 3RF clonazepam 0.5 mg tablet 0.5 mg PO DAILY Patient Comments: take 1 tablet by mouth twice a day if needed for anxiety UP TO 10 DOSES. MUST LAST 30 DAYS. patient states takes once daily prn clindamycin phosphate 1 % gel 1 applic topical DIRECTED cetirizine 10 mg tablet 10 mg PO QAM Patient Comments: take 1 tablet by mouth once daily if needed for ALLERGIES pantoprazole 40 mg tablet,delayed release (DR/EC) 40 mg PO QAM Patient Comments: take 1 tablet by mouth daily 30 MINUTES PRIOR TO A MEAL solifenacin 5 mg tablet 5 mg PO BID Patient Comments: take 1 tablet by mouth twice a day nortriptyline 10 mg capsule 50 mg PO QPM Patient Comments: take 5 capsules by mouth nightly Referrals: Sandor Mitchell MD [Primary Care Provider] - Stand Alone Forms: Patient Portal/API
--- NOTE | 2022-12-31 14:33 | DI.CT.S_ITS ---
PROCEDURE: CT KIDNEY URETER BLADDER (KUB) INDICATIONS: left flank pain TECHNIQUE: Axial sections were acquired from the lung bases to the pubic symphysis. Coronal and sagittal reformats were performed. For radiation dose reduction, the following was used: automated exposure control, adjustment of mA and/or kV according to patient size. COMPARISON: [facility], CT, CT ABDOMEN PELVIS WO CON, 02/26/2022, 15:07. [facility], CT, CT KIDNEY URETER BLADDER (KUB), 09/14/2018, 10:16. FINDINGS: Image quality: Excellent. Lung bases: Unremarkable. Heart: No significant findings. URINARY: Right Kidney: Renal atrophy is present as well as medullary calcinosis. Small areas of underlying nonobstructing stone cannot be definitively excluded. Renal cysts are present bilaterally. Right Ureter: No hydroureter. Left Kidney: Renal atrophy and medullary calcinosis is present. Small areas of underlying stone cannot be definitively excluded. Left Ureter: No hydroureter. Bladder: Normal wall thickness. No stones. ABDOMEN: Liver: Unremarkable. Gallbladder: Removed Biliary ducts: Unremarkable. Pancreas: Unremarkable. Spleen: Unremarkable. Adrenal Glands: Unremarkable. Stomach and Bowel: Stomach, small bowel loops, and colon are unremarkable. Peritoneum: No abnormal intraperitoneal fluid. No free air. Ventral Wall: No hernia. Abdominal Nodes: No enlarged retroperitoneal or mesenteric lymph nodes. Vessels: Aorta and inferior vena cava are normal in size. PELVIS: Pelvic Organs: Hysterectomy changes are present. Pelvic Nodes: Unremarkable. Miscellaneous: No inguinal hernias are seen. Bones: Posterior fusion at L3-4 is present. IMPRESSION: No acute intra-abdominal or pelvic process. Dictated by: Chloe Nagel M.D. on 12/31/2022 at 15:51 Approved by: Chloe Nagel M.D. on 12/31/2022 at 15:54
[2022-12-31] MEDS: MORPHINE 4 MG/ML INJ IV (14:49)
[2022-12-31] MEDS: HYDROMORPHONE 1 MG INJ IV (16:47)
[2022-12-31 18:11] LABS: Bacteria Urine Moderate (10-30); Culture Indicated Urine Specimen Cultured; RBC Urine 1-5/HPF (0-5/HPF); Squamous Epithelial Cell Urine None Seen (0-5/HPF); WBC Urine >100/HPF (0-5/HPF)
== END 2022-12-31 17:22 | disposition home or self-care (01) ==
PROVIDERS: Emergency Provider Emergency Medicine; PCP Internal Medicine
DX: M54.50 Low back pain, unspecified (principal); R79.89 Other specified abnormal findings of blood chemistry
CPT/HCPCS: 36415; 74176; 80053; 81003; 81015; 83690; 85025; 87077; 87086; 87186; 93005; 96374; 96375; 99284; J1170; J2270; J2405

== ENCOUNTER → 2023-01-15 09:35 | Outpatient (CLI) | payer MEDICARE, SELFPAY ==
[2023-01-14 11:08] VITALS: BMI 24.4
--- NOTE | 2023-01-15 09:36 | DI.RAD.S_ITS ---
PROCEDURE: XR LUMBAR SPINE 2-3V INDICATIONS: back pain TECHNIQUE: 3 views of the lumbar spine were acquired. COMPARISON: [facility], CR, L-SPINE 2-3 VIEWS, 08/19/2006, 9:37. [facility], MR, MR LUMBAR SPINE WITHOUT CONTRAST, 02/26/2021, 11:32. FINDINGS: Bones: 5 [id number] vertebrae are present. There is normal bony alignment. No vertebral body compression fractures. No suspicious bony lesions. Discectomy and posterior fusion at L3-L4. Pedicular screws and fusion rods are intact. Mild degenerative disc disease at L1-L2, L2-L3, L4-L5 and L5-S1. Moderate facet arthropathy at L2-L3, L4-L5 and L5-S1. Soft tissues: Overlying bowel gas pattern is normal. No suspicious soft tissue calcifications. IMPRESSION: 1. Discectomy and posterior fusion at L3-L4. 2. Mild degenerative disc disease and moderate facet arthropathy. Dictated by: Mike Cordoba M.D. on 01/15/2023 at 12:49 Approved by: Mike Cordoba M.D. on 01/15/2023 at 12:52
== END ==
PROVIDERS: PCP Internal Medicine; Referring Provider Internal Medicine; Visit Provider Internal Medicine
DX: M54.10 Radiculopathy, site unspecified (principal); M51.36 Other intervertebral disc degeneration, lumbar region; M51.37 Other intervertebral disc degeneration, lumbosacral region; M47.816 Spondylosis without myelopathy or radiculopathy, lumbar region; M47.817 Spondylosis without myelopathy or radiculopathy, lumbosacral region; Z98.1 Arthrodesis status
CPT/HCPCS: 72100

== ENCOUNTER → 2023-02-20 11:08 | Outpatient (CLI) | payer OTHER, SELFPAY ==
[2023-01-14 11:08] VITALS: BMI 24.4
[2023-02-20 12:14] LABS: Appearance Urine UA CLOUDY; Bilirubin Urine UA NEGATIVE (NEGATIVE); Color Urine UA YELLOW; Glucose Urine UA NEGATIVE (Negative); Ketones Urine UA NEGATIVE (NEGATIVE); Leukocyte Esterase Urine UA 3+ (NEGATIVE); Nitrite Urine UA NEGATIVE (Negative); Occult Blood Urine UA 2+ (Negative); Protein Urine UA 2+ (Negative); Specific Gravity Urine UA 1.015 (1.000-1.035); Urobilinogen Urine UA 0.2 E.U./dL (0.2)
[2023-02-20 12:44] LABS: pH Urine UA 5.5 (4.5-8.0)
[2023-02-20 12:53] LABS: Bacteria Urine Moderate (10-30); RBC Urine 1-5/HPF (0-5/HPF); Squamous Epithelial Cell Urine None Seen (0-5/HPF); WBC Urine 10-30/HPF (0-5/HPF)
[2023-02-20 12:54] LABS: Amorphous Sediment Urine 1+; Culture Indicated Urine Specimen Cultured
== END ==
PROVIDERS: PCP Internal Medicine; Referring Provider Internal Medicine; Visit Provider Internal Medicine
DX: R30.0 Dysuria (principal); N39.0 Urinary tract infection, site not specified
CPT/HCPCS: 81001; 87077; 87086; 87186

== ENCOUNTER 2023-09-05 23:05 | Emergency (ER) | payer MEDICARE, SELFPAY ==
[2023-01-14 11:08] VITALS: BMI 24.4
[2023-09-05 23:08] VITALS: BP 166/86; PULSE 89; RESP 20; TEMP 36.2; O2SAT 97; BMI 24.9
[2023-09-06 00:01] LABS: RBC Urine 1-5/HPF (0-5/HPF); Urine Volume 10mL (spun)
[2023-09-06 00:02] LABS: Bacteria Urine Moderate (10-30); Culture Indicated Urine Specimen Cultured; Squamous Epithelial Cell Urine 1-5 /HPF (0-5/HPF); Transitional Epi Cells Urine 0-1/HPF (0-5/HPF); WBC Urine 30-100/HPF (0-5/HPF)
== END 2023-09-06 01:17 | disposition left against medical advice (07) ==
PROVIDERS: Emergency Provider Emergency Medicine; PCP Internal Medicine
DX: R42 Dizziness and giddiness (principal)
CPT/HCPCS: 81003; 81015; 87086; 99281

== ENCOUNTER → 2023-12-04 12:30 | Outpatient (CLI) | payer MEDICARE, SELFPAY ==
[2023-11-26 16:44] VITALS: BMI 24.4
[2023-12-04 14:42] LABS: Appearance Urine UA SL CLOUDY; Bilirubin Urine UA NEGATIVE (NEGATIVE); Color Urine UA YELLOW; Glucose Urine UA TRACE g/dL (Negative); Ketones Urine UA NEGATIVE (NEGATIVE); Leukocyte Esterase Urine UA 2+ (NEGATIVE); Nitrite Urine UA POSITIVE (Negative); Occult Blood Urine UA 1+ (Negative); Protein Urine UA 2+ (Negative); Specific Gravity Urine UA 1.015 (1.000-1.035); Urobilinogen Urine UA 0.2 E.U./dL (0.2)
[2023-12-04 14:44] LABS: pH Urine UA 6.5 (4.5-8.0)
[2023-12-04 14:44] LABS: Add Manual Diff / Slide Review NO; Basophils Absolute Auto 100 /uL (0-100); Basophils Percent Auto 0.8 % (0-2); Eosinophils Absolute Auto 200 /uL (0-450); Eosinophils Percent Auto 2.7 % (2-4); Hematocrit 40.8 % (36-46); Hemoglobin 13.4 g/dL (12.0-16.0); Lymphocytes Absolute Auto 2700 /uL (1100-4500); Lymphocytes Percent Auto 34.6 % (25-40); Mean Corpuscular HGB Conc 32.9 % (30-36); Mean Corpuscular Hemoglobin 31.2 PG (26-34); Mean Corpuscular Volume 94.9 fL (80-100); Monocytes Absolute Auto 700 /uL (0-900); Monocytes Percent Auto 8.7 % (3-14); Neutrophils Absolute Auto 4200 /uL (1500-7000); Neutrophils Percent Auto 53.2 % (50-75); Platelet Count 420 X10^3/uL (150-400); Red Cell Distribution Width 13.1 % (11.6-14.8); White Blood Cell Count 7.9 X10^3/uL (4.5-11.0)
[2023-12-04 14:58] LABS: Bacteria Urine Many (>30); Culture Indicated Urine Specimen Cultured; RBC Urine 5-10/HPF (0-5/HPF); Squamous Epithelial Cell Urine None Seen (0-5/HPF); Urine Volume 10mL (spun); WBC Urine 10-30/HPF (0-5/HPF)
[2023-12-04 15:12] LABS: C-Reactive Protein Quant 2.1 mg/dL (<1.0); Erythrocyte Sedimentation Rate 39 MM/HR (0-20)
== END ==
PROVIDERS: PCP Internal Medicine; Referring Provider Internal Medicine; Visit Provider Internal Medicine
DX: B99.9 Unspecified infectious disease (principal); N39.0 Urinary tract infection, site not specified
CPT/HCPCS: 36415; 81001; 85025; 85651; 86140; 87086

== ENCOUNTER → 2023-12-04 14:36 | Outpatient (CLI) | payer MEDICARE, SELFPAY ==
[2023-11-26 16:44] VITALS: BMI 24.4
--- NOTE | 2023-12-04 14:37 | DI.RAD.S_ITS ---
PROCEDURE: XR HIP W PEL IF DONE TONI MIN 4V INDICATIONS: Left acetabular tear TECHNIQUE: AP pelvis and bilateral hips. COMPARISON: None. FINDINGS: Bones: No fractures or dislocations. Pelvic ring appears intact. No suspicious bony lesions. Mild osteoarthritis to both hip joints SI joints. Degenerative changes to the lower lumbar spine. Partially visualized posterior spinal fusion of the lower lumbar spine. Soft tissues: The visualized bowel gas pattern is normal. No suspicious soft tissue calcifications. Phleboliths in the pelvis. IMPRESSION: 1. No acute fracture or dislocation. 3. Mild osteoarthritis to both hip joints. Dictated by: Hernandez Issa M.D. on 12/05/2023 at 14:33 Approved by: Hernandez Issa M.D. on 12/05/2023 at 14:54
== END ==
PROVIDERS: PCP Internal Medicine; Referring Provider Physical Medicine & Rehabilitation; Visit Provider Physical Medicine & Rehabilitation
DX: M47.816 Spondylosis without myelopathy or radiculopathy, lumbar region (principal); Z98.890 Other specified postprocedural states; M16.0 Bilateral primary osteoarthritis of hip; N39.0 Urinary tract infection, site not specified; B99.9 Unspecified infectious disease
CPT/HCPCS: 36415; 73522; 81001; 85025; 85651; 86140; 87077; 87086; 87186

== ENCOUNTER → 2023-12-18 08:17 | Outpatient (CLI) | payer MEDICARE, SELFPAY ==
[2023-11-26 16:44] VITALS: BMI 24.4
--- NOTE | 2023-12-18 08:18 | DI.MRI.S_ITS ---
PROCEDURE: MR HIP LT WO CON INDICATIONS: Left acetabular tear TECHNIQUE: Noncontrast coronal T1 spin echo and STIR through the bony pelvis. Coronal and axial T2 fast spin echo with fat saturation, sagittal T1 spin echo, and oblique axial T2 fast spin echo with fat saturation through the hip. COMPARISON: [facility], CR, XR HIP W PEL IF DONE TONI 3TO4V, 12/04/2023, 14:39. FINDINGS: Image quality: Excellent. Bones and joints: Marrow signal of the visualized lower lumbar spine is unremarkable. The sacrum is intact. There is symmetric mild marrow edema of the most inferior aspect of the bilateral posterior iliac wing (series 3, image 7), about the inferior bilateral sacroiliac joint, incompletely evaluated. The right hip is well aligned. No acute fracture or dislocation of the right hip. The left hip is well aligned. No acute fracture or dislocation of the left hip. No avascular necrosis of either femoral head. Trace effusion in bilateral hips. Tendons and ligaments: The left iliopsoas, and adductor tendon are unremarkable. Mild tendinosis of the left hamstring tendon. Mild tendinosis of the left gluteal minimus with low-grade tear at the greater trochanteric insertion. Mild peritendinitis of the gluteal medius, without tear. Labrum and cartilage: Superior labral tear. No paralabral cyst. No focal chondral defect of the femoral head. Soft tissues: Unremarkable IMPRESSION: 1. Symmetric mild marrow edema of the most inferior aspect of the bilateral posterior iliac wing, incompletely evaluated. Further evaluation with sacral MRI can be considered if clinically indicated. 2. Low-grade tear of the left gluteal minimus at the greater trochanter insertion. 3. Mild peritendinitis of the gluteus medius without tear. 4. Labral tear of the left hip. Dictated by: Katya Young M.D. on 12/18/2023 at 16:36 Approved by: Katya Young M.D. on 12/18/2023 at 16:47
== END ==
PROVIDERS: PCP Internal Medicine; Referring Provider Physical Medicine & Rehabilitation; Visit Provider Physical Medicine & Rehabilitation
DX: M16.9 Osteoarthritis of hip, unspecified (principal); S76.012A Strain of muscle, fascia and tendon of left hip, initial encounter; M76.02 Gluteal tendinitis, left hip; S73.192A Other sprain of left hip, initial encounter
CPT/HCPCS: 73721

== ENCOUNTER → 2024-01-07 07:04 | Outpatient (CLI) | payer MEDICARE, SELFPAY ==
[2023-11-26 16:44] VITALS: BMI 24.4
--- NOTE | 2024-01-07 07:30 | DI.MRI.S_ITS ---
PROCEDURE: MR PELVIS WO CON COMPARISON: [facility], CT, CT ABDOMEN PELVIS WITHOUT CONTRAST, 01/28/2023, 18:32. [facility], MR, MR HIP LT WO CON, 12/18/2023, 8:39. [facility], CR, XR HIP W PEL IF DONE TONI 3TO4V, 12/04/2023, 14:39. INDICATIONS: sacral edema on hip mri FINDINGS: MR imaging shows some mild edema involving the inferior aspect of the sacrum bilaterally. Imaging findings are most suggestive of stress reaction/early stress fracture. Again noted is a area of postsurgical change involving the right iliac crest which appears to be a donor site for bone grafting involving the patient's lumbar spine surgery. Marrow signal remaining visualized bones appears normal. Visualized pelvic organs are unremarkable. There is some increased signal in the paraspinous musculature on the left which may represent an acute injury and clinical correlation is recommended. No loculated fluid collections or soft tissue masses are seen. IMPRESSION: 1. Mild marrow edema involving the inferior aspect of the sacrum right greater than left. Imaging findings are suggestive of stress reaction/early stress fracture. 2. Again noted is an area of postsurgical change involving the patient's right iliac crest for a bone graft donor site for the patient's lumbar spine surgery. 3. Increased signal within the paraspinous musculature of on the left which may represent an acute injury. Clinical correlation is recommended. Dictated by: Kody Kimble M.D. on 01/07/2024 at 9:13 Approved by: Kody Kimble M.D. on 01/07/2024 at 9:24
== END ==
PROVIDERS: PCP Internal Medicine; Referring Provider Physical Medicine & Rehabilitation; Visit Provider Physical Medicine & Rehabilitation
DX: M53.3 Sacrococcygeal disorders, not elsewhere classified (principal); Z98.890 Other specified postprocedural states
CPT/HCPCS: 72195

== ENCOUNTER 2024-02-02 09:28 | Emergency (ER) | payer MEDICARE, SELFPAY ==
[2024-02-02 08:11] VITALS: BMI 24.4
[2024-02-02 09:36] VITALS: BP 136/88; PULSE 96; RESP 18; TEMP 36.6; O2SAT 97; BMI 24.7
--- NOTE | 2024-02-02 11:46 | ED.RECABL ---
HPI - Recheck/Abnormal Lab/Rx <Prema Cooper PA-C - Last Filed: 02/02/24 14:44> General Chief Complaint: Recheck/Abnormal Lab/Rx Stated Complaint: sent by Dr. 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 Poon. Patient has been seen by Dr. Poon last week, was prescribed fosfomycin for a UTI that has not resolved. She sent the patient to the ED to initiate the 1st dose of IV ertapenem. Spoke with Dr. Poon over the phone. She states that patient's micro grew EFBL E coli which is susceptible to ertapenem. This is after treatment failure with fosfomycin. She recommends 500 mg IV ertapenem to accommodate for patient's GFR which is less than 30. Patient is also not a candidate for nitrofurantoin, given her GFR. There is a note in patient's medical record that states that she had an allergic reaction to ertapenem, which caused elevated LFTs. However, Dr. Poon notes that patient has received ertapenem prior to this with no complications. Furthermore, our EMR shows patient tolerating ertapenem with no adverse reactions in February 2022. However, due to abundance of caution, Dr. Poon would like the 1st dose to be initiated in the ED so she can be observed for any adverse reactions. Patient endorses being symptomatic. Complains of dysuria, urinary urgency, urinary frequency, intermittent vomiting and nausea. Patient endorses subjective fevers, no chills. No abdominal pain. Related Data Home Medications Medication Instructions Recorded Confirmed etonogestrel 68 mg subdermal subdermal 06/20/22 01/21/24 implant (Nexplanon) naloxone 4 mg/actuation nasal spray 4 mg intranasal Q2M PRN 06/20/22 01/21/24 sodium bicarbonate 650 mg tablet 1,300 mg PO BID 06/20/22 01/21/24 sumatriptan succinate 100 mg tablet See Rx Instructions PO .COMPLEX 06/20/22 01/21/24 tamsulosin 0.4 mg capsule 0.4 mg PO BEDTIME 06/20/22 01/21/24 docusate sodium 100 mg capsule 100 mg PO BID 02/03/23 01/21/24 carbamazepine 200 mg tablet 200 mg PO DAILY 04/21/23 01/21/24 nortriptyline 50 mg capsule 50 mg PO ONCE PM 04/21/23 01/21/24 empagliflozin 10 mg tablet 10 mg PO DAILY 09/22/23 01/21/24 (Jardiance) losartan 25 mg tablet 25 mg PO BID 01/21/24 01/21/24 Previous Rx's Medication Instructions Recorded hydroxyzine pamoate 25 mg capsule 25 mg PO BEDTIME #90 caps 02/19/23 levothyroxine 75 mcg tablet 75 mcg PO DAILY #90 tabs 04/16/23 cetirizine 10 mg tablet 10 mg PO QAM #90 tabs 05/19/23 clindamycin phosphate 1 % topical 1 applic topical BID PRN 06/11/23 gel rash;boils #30 grams diclofenac sodium 1 % topical gel 2 g topical BID PRN pain #100 grams 06/12/23 fluticasone propionate 50 50 mcg intranasal QAM #16 grams 09/10/23 mcg/actuation nasal spray,suspension Automated blood pressure arm cuff #1 ea 09/22/23 duloxetine 20 mg capsule,delayed 20 mg PO BID #180 caps 10/01/23 release meclizine 25 mg tablet 25 mg PO TID PRN dizziness #60 tabs 10/13/23 fosfomycin tromethamine 3 gram 3 g PO ONCE #1 ea 11/06/23 oral packet lorazepam 0.5 mg tablet See Rx Instructions PO DAILY PRN 11/06/23 flight anxiety #4 tabs azelastine 137 mcg (0.1 %) nasal 2 spray intranasal QAM #30 mL 11/21/23 spray methocarbamol 500 mg tablet 500 mg PO Q8H #90 tabs 12/04/23 oxycodone 10 mg tablet See Rx Instructions PO QID #180 12/15/23 tabs oxycodone 10 mg tablet See Rx Instructions PO QID #180 12/15/23 tabs oxycodone 10 mg tablet See Rx Instructions PO QID PRN 12/15/23 pain #180 tabs pantoprazole 40 mg tablet,delayed 40 mg PO BID #180 tabs 12/15/23 release ondansetron 8 mg disintegrating 8 mg PO BID #30 tabs 12/19/23 tablet clonazepam 0.5 mg tablet 0.5 mg PO BID PRN anxiety #60 tabs 01/08/24 calcitonin (salmon) 200 1 spray intranasal (ALT) DAILY 01/13/24 unit/actuation nasal spray sacral fx 3 months #3.7 mL Allergies Allergy/AdvReac Type Severity Reaction Status Date / Time iodine [IODINE] Allergy Unknown DRINKING Verified 02/02/24 09:43 CONTRAST GIVES HER WELTS atorvastatin AdvReac Intermediate aches Verified 02/02/24 09:43 gabapentin AdvReac Intermediate Confusion Verified 02/02/24 09:43 ertapenem [ERTAPENEM] AdvReac Unknown rise in Verified 02/02/24 09:43 LFTs?? per [facility] records prednisone [PREDNISONE] AdvReac Unknown GETS Verified 02/02/24 09:43 ENRAGED AND SKIN IS CRAWLING Review of Systems <Prema Cooper PA-C - Last Filed: 02/02/24 14:44> Constitutional Constitutional: Denies chills, Denies fatigue, Reports fever(s), Denies frequent falls, Denies lethargy and Denies weakness Eyes Eyes: Denies change in vision, Denies eye discharge, Denies irritation and Denies loss of vision ENT Ears, Nose, Mouth, and Throat: Denies change in voice, Denies dizziness, Denies neck pain, Denies sore throat and Denies throat swelling Cardiovascular Cardiovascular: Denies chest pain, Denies irregular heart rhythm, Denies lightheadedness, Denies palpitations, Denies dyspnea, Denies dyspnea on exertion and Denies orthopnea Respiratory Respiratory: Denies cough, Denies dyspnea, Denies dyspnea on exertion and Denies wheezing Gastrointestinal Gastrointestinal: Denies abdominal pain, Denies change in bowel habits, Denies diarrhea, Reports nausea and Reports vomiting Genitourinary Genitourinary: Denies urinary frequency and Reports dysuria Comments: Urinary frequency, urinary urgency Musculoskeletal Musculoskeletal: Denies neck pain and Denies numbness Integumentary/Breasts Skin/Breast: Denies pruritus, Denies erythema, Denies rash and Denies wounds Neurologic Neurologic: Denies behavioral changes, Denies confusion, Denies dizziness, Denies frequent falls, Denies loss of vision, Denies numbness and Denies weakness Psychiatric Psychiatric: Denies anxiety, Denies behavioral changes, Denies confusion, Denies depression, Denies homicidal ideation and Denies suicidal ideation Endocrine Endocrine: Denies fatigue, Denies flushing and Denies palpitations Hematologic/Lymphatic Hematologic/Lymphatic: Denies easy bruising Allergic/Immunologic Allergic/Immunologic: Denies urticaria, Denies throat swelling and Denies wheezing Patient History <Prema Cooper PA-C - Last Filed: 02/02/24 14:44> Medical History Greater trochanteric bursitis of left hip Sacral back pain Degenerative joint disease (DJD) of hip BPPV (benign paroxysmal positional vertigo) Other chronic pancreatitis Major depressive disorder, recurrent, moderate Chronic kidney disease, stage 4 (severe) Shingles Back pain with radiculopathy Slow transit constipation Bilateral carpal tunnel syndrome Depression, major, recurrent Adrenal mass Critical illness polyneuropathy Recurrent UTI Essential hypertension GERD without esophagitis Interstitial cystitis Chronic, continuous use of opioids Chronic low back pain CKD stage 4 secondary to hypertension Acquired hypothyroidism Seasonal allergies (~2018) Anxiety (~2005) Peripheral neuropathy (~2006) History of frequent headaches (~2018) Foot pain (~2017) Carpal tunnel syndrome (~2021) E-coli UTI Vocal cord paralysis (~2006) Recurrent sinusitis (~2019) Proteinuria (~2006) Frequent UTI (~2021) Migraine headache (~2018) Chronic back pain (~1997) Nephrolithiasis (~2006) Surgical History Anesthesia H/O prior ablation treatment H/O section Bladder distension H/O lithotripsy History of cholecystectomy H/O foot surgery H/O shoulder surgery History of lumbar laminectomy Family History Mother Hypertension Thyroid disease Heart disease Father Kidney stones ESRF (end stage renal failure) Heart disease Hypertension High cholesterol Grandfather High cholesterol Hypertension Grandmother Diabetes mellitus Heart disease Hypertension High cholesterol Dementia Grandfather Heart disease Hypertension Grandmother Hypertension Stroke Social History household members: family and friend(s) Smoking Status: Current some day smoker alcohol intake: never Smoking Status: Current some day smoker tobacco type: cigarettes alcohol intake frequency: holidays/special occasions only Substance Use Type: does not use Exam <Prema Cooper PA-C - Last Filed: 02/02/24 14:44> Narrative Exam Narrative: Const General:?cooperative, healthy appearing and comfortable HENNY Head:?normal to inspection Ears:?hearing grossly normal bilaterally Nose:?external nose normal Face and sinus:?normal facial exam and sinuses nontender Mouth:?oral mucosae normal Throat:?posterior oropharynx normal Eyes General:?appearance normal, both eyes and all related structures Neck Neck:?normal visual inspection and no lymphadenopathy noted Resp Effort & Inspection:?normal respiratory effort Auscultation:?clear to auscultation bilaterally Cardio Rate:?regular rate Rhythm:?regular rhythm GI Abdomen is soft, nondistended, with mild tenderness in the left lower quadrant, which is consistent with patient's baseline chronic pain from shingles. There is some left-sided CVA tenderness. Neuro General:?patient alert, patient awake and patient oriented x3 Initial Vital Signs Initial Vital Signs: Vital Signs Temperature 97.9 F 02/02/24 09:36 Pulse Rate 96 H 02/02/24 09:36 Respiratory Rate 18 02/02/24 09:36 Blood Pressure 136/88 02/02/24 09:36 Pulse Oximetry 97 02/02/24 09:36 Oxygen Delivery Method Room Air 02/02/24 09:36 <Jah Almazan DO - Last Filed: 02/03/24 10:30> Initial Vital Signs Initial Vital Signs: Vital Signs Temperature 97.9 F 02/02/24 09:36 Pulse Rate 96 H 02/02/24 09:36 Respiratory Rate 18 02/02/24 09:36 Blood Pressure 136/88 02/02/24 09:36 Pulse Oximetry 97 02/02/24 09:36 Oxygen Delivery Method Room Air 02/02/24 09:36 Course <Prema Cooper PA-C - Last Filed: 02/02/24 14:44> Orders Ordered: Discontinued Medications Ertapenem 0.5 gm/ Sodium (Chloride) 100 mls @ 200 mls/hr IV NOW ONE Stop: 02/02/24 13:05 Last Infusion: 02/02/24 14:02 Dose: Infused Documented By: Admin: 02/02/24 13:26 Dose: 200 mls/hr Documented By: ARIELLA Vital Signs Vital signs: Vital Signs - 8 hr 02/02/24 09:36 02/02/24 14:26 Temperature 97.9 F 97.6 F Pulse Rate 96 H 89 Respiratory Rate 18 20 Blood Pressure 136/88 131/78 Pulse Oximetry 97 100 Oxygen Delivery Method Room Air Room Air <Jah Almzaan DO - Last Filed: 02/03/24 10:30> Orders Ordered: Discontinued Medications Ertapenem 0.5 gm/ Sodium (Chloride) 100 mls @ 200 mls/hr IV NOW ONE Stop: 02/02/24 13:05 Last Infusion: 02/02/24 14:02 Dose: Infused Documented By: Admin: 02/02/24 13:26 Dose: 200 mls/hr Documented By: ARIELLA Vital Signs Vital signs: Vital Signs - 8 hr 02/02/24 09:36 02/02/24 14:26 Temperature 97.9 F 97.6 F Pulse Rate 96 H 89 Respiratory Rate 18 20 Blood Pressure 136/88 131/78 Pulse Oximetry 97 100 Oxygen Delivery Method Room Air Room Air MDM - Recheck/Abnormal Lab/Rx <Prema Cooper PA-C - Last Filed: 02/02/24 14:44> Lab Data 02/02/24 12:13 02/02/24 12:13 Labs: Lab Results 02/02/24 02/02/24 Range/Units 12:13 12:39 WBC 6.8 (4.5-11.0) X10^3/uL RBC 4.20 (4.0-5.2) X10^6/uL Hgb 13.3 (12.0-16.0) g/dL Hct 39.8 (36-46) % MCV 94.8 (80-100) fL MCH 31.6 (26-34) PG MCHC 33.4 (30-36) % RDW 13.7 (11.6-14.8) % Plt Count 286 (150-400) X10^3/uL Neut % (Auto) 57.3 (50-75) % Lymph % (Auto) 33.1 (25-40) % Mcdonald % (Auto) 6.4 (3-14) % Eos % (Auto) 1.7 L (2-4) % Baso % (Auto) 1.5 (0-2) % Neut # (Auto) 3900 (3150-4061) /uL Lymph # (Auto) 2300 (2391-1269) /uL Mcdonald # (Auto) 400 (0-900) /uL Eos # (Auto) 100 (0-450) /uL Baso # (Auto) 100 (0-100) /uL PT 10.1 (9.4-12.5) SECONDS INR 0.9 (0.9-1.3) APTT 35 (25.1-36.5) SECONDS Sodium 135 L (137-145) mmol/L Potassium 4.8 (3.4-5.1) mmol/L Chloride 108 H (98-107) mmol/L Carbon Dioxide 19 L (22-32) mmol/L BUN 37 H (7-17) mg/dL Creatinine 1.99 H (0.52-1.04) mg/dL Estimated GFR 29 L (>60) mL/min BUN/Creatinine Ratio 18.6 (6-22) Glucose 109 H (70-100) mg/dL Lactate 0.5 L (0.7-2.1) mmol/L Calcium 9.3 (8.4-10.2) mg/dL Total Bilirubin 0.6 (0.2-1.3) mg/dL AST 28 (14-36) IU/L ALT 32 (<35) IU/L Alkaline Phosphatase 81 (38-126) U/L Total Protein 7.3 (6.3-8.2) g/dL Albumin 4.2 (3.5-5.0) g/dL Globulin 3.1 (1.7-4.1) g/dL Albumin/Globulin Ratio 1.4 (1.0-2.8) Lipase 63 (23-300) U/L Urine Color Yellow Urine Appearance Clear Urine pH 6.5 (4.5-8.0) Ur Specific [place] 1.020 (1.000-1.035) Urine Protein 2+ H (Negative) Urine Glucose (UA) Negative (Negative) g/dL Urine Ketones Negative (NEGATIVE) Urine Occult Blood Trace-intact (Negative) Urine Nitrate Negative (Negative) Urine Bilirubin Negative (NEGATIVE) Urine Urobilinogen 0.2 (0.2) E.U./dL Ur Leukocyte Esterase 1+ H (NEGATIVE) Urine RBC None seen (0-5/HPF) Urine WBC 10-30/hpf H (0-5/HPF) Ur Squamous Epith Cells 5-10 /hpf H (0-5/HPF) Urine Bacteria None seen (None) Ur Culture Indicated? 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 Poon. Following the conversation with Dr. Poon, ordered labs, UA, urine culture, blood cultures prior to starting ertapenem. Urine is positive for leukocyte esterase and WBC. Urine has been sent for culture. Creatinine is 1.99 today, which is marginally better than patient's baseline. GFR is 29 which is also baseline. Labs are otherwise unremarkable. SIRS neg. Blood cultures have been sent. Patient was given 500 mg of ertapenem IV and observed. No adverse reactions and patient reported feeling fine after the IV infusion. Patient has subsequent antibiotic doses scheduled at the outpatient Infusion Center, coordinated by Dr. Poon. Patient will follow-up with Dr. Poon for rechecks and monitoring. ED return precautions were discussed with patient. Patient verbalized understanding. Medical records reviewed: Yes <Jah Almazan, DO - Last Filed: 02/03/24 10:30> Lab Data Labs: Lab Results 02/02/24 02/02/24 Range/Units 12:13 12:39 WBC 6.8 (4.5-11.0) X10^3/uL RBC 4.20 (4.0-5.2) X10^6/uL Hgb 13.3 (12.0-16.0) g/dL Hct 39.8 (36-46) % MCV 94.8 (80-100) fL MCH 31.6 (26-34) PG MCHC 33.4 (30-36) % RDW 13.7 (11.6-14.8) % Plt Count 286 (150-400) X10^3/uL Neut % (Auto) 57.3 (50-75) % Lymph % (Auto) 33.1 (25-40) % Mcdonald % (Auto) 6.4 (3-14) % Eos % (Auto) 1.7 L (2-4) % Baso % (Auto) 1.5 (0-2) % Neut # (Auto) 3900 (4471-7646) /uL Lymph # (Auto) 2300 (6512-8143) /uL Mcdonald # (Auto) 400 (0-900) /uL Eos # (Auto) 100 (0-450) /uL Baso # (Auto) 100 (0-100) /uL PT 10.1 (9.4-12.5) SECONDS INR 0.9 (0.9-1.3) APTT 35 (25.1-36.5) SECONDS Sodium 135 L (137-145) mmol/L Potassium 4.8 (3.4-5.1) mmol/L Chloride 108 H (98-107) mmol/L Carbon Dioxide 19 L (22-32) mmol/L BUN 37 H (7-17) mg/dL Creatinine 1.99 H (0.52-1.04) mg/dL Estimated GFR 29 L (>60) mL/min BUN/Creatinine Ratio 18.6 (6-22) Glucose 109 H (70-100) mg/dL Lactate 0.5 L (0.7-2.1) mmol/L Calcium 9.3 (8.4-10.2) mg/dL Total Bilirubin 0.6 (0.2-1.3) mg/dL AST 28 (14-36) IU/L ALT 32 (<35) IU/L Alkaline Phosphatase 81 (38-126) U/L Total Protein 7.3 (6.3-8.2) g/dL Albumin 4.2 (3.5-5.0) g/dL Globulin 3.1 (1.7-4.1) g/dL Albumin/Globulin Ratio 1.4 (1.0-2.8) Lipase 63 (23-300) U/L Urine Color Yellow Urine Appearance Clear Urine pH 6.5 (4.5-8.0) Ur Specific [place] 1.020 (1.000-1.035) Urine Protein 2+ H (Negative) Urine Glucose (UA) Negative (Negative) g/dL Urine Ketones Negative (NEGATIVE) Urine Occult Blood Trace-intact (Negative) Urine Nitrate Negative (Negative) Urine Bilirubin Negative (NEGATIVE) Urine Urobilinogen 0.2 (0.2) E.U./dL Ur Leukocyte Esterase 1+ H (NEGATIVE) Urine RBC None seen (0-5/HPF) Urine WBC 10-30/hpf H (0-5/HPF) Ur Squamous Epith Cells 5-10 /hpf H (0-5/HPF) Urine Bacteria None seen (None) Ur Culture Indicated? 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 Poon. Following the conversation with Dr. Poon, ordered labs, UA, urine culture, blood cultures prior to starting ertapenem. Urine is positive for leukocyte esterase and WBC. Urine has been sent for culture. Creatinine is 1.99 today, which is marginally better than patient's baseline. GFR is 29 which is also baseline. Labs are otherwise unremarkable. SIRS neg. Blood cultures have been sent. Patient was given 500 mg of ertapenem IV and observed. No adverse reactions and patient reported feeling fine after the IV infusion. Patient has subsequent antibiotic doses scheduled at the outpatient Infusion Center, coordinated by Dr. Poon. Patient will follow-up with Dr. Poon for rechecks and monitoring. ED return precautions were discussed with patient. Patient verbalized understanding. Medical records reviewed: Yes Dr. Almazan: I was immediately available in the department for consultation. Documentation has been reviewed. I agree with assessment and plan. Discharge Plan Departure Patient Disposition: Home Clinical Impression: Pyelonephritis Instructions: DI for Kidney Infection Activity Restrictions/Additional Instructions: You were evaluated in the ED today for an ongoing kidney infection. Your kidney function appears to be stable as per your baseline and your labs are otherwise normal. We consulted with Dr. Poon who suggested labs, urine and starting you on the 1st dose of the antibiotic ertapenem. You will receive subsequent doses of the antibiotic at the outpatient infusion center as scheduled by Dr. Poon. Please follow-up with her regarding next doses and rechecks. Return to the ED if you have worsening symptoms, chest pain, shortness of breath, persistent vomiting, fever, chills. Prescriptions: No Action hydroxyzine pamoate 25 mg capsule 25 mg PO BEDTIME Qty: 90 3RF levothyroxine 75 mcg tablet 75 mcg PO DAILY Qty: 90 3RF cetirizine 10 mg tablet 10 mg PO QAM Qty: 90 3RF clindamycin phosphate 1 % gel 1 applic topical BID PRN (Reason: rash;boils) Qty: 30 0RF diclofenac sodium 1 % gel 2 g topical BID PRN (Reason: pain) Qty: 100 1RF Rx Instructions: AREA ON LOWER BACK TWICE DAILY NEEDED fluticasone propionate 50 mcg/actuation spray,suspension 50 mcg INTRANASAL QAM Qty: 16 11RF duloxetine 20 mg capsule,delayed release(DR/EC) 20 mg PO BID Qty: 180 3RF lorazepam 0.5 mg tablet See Rx Instructions PO DAILY PRN (Reason: flight anxiety) Qty: 4 1RF Rx Instructions: 1-2 daily as needed for flight anxiety fosfomycin tromethamine 3 gram packet 3 g PO ONCE Qty: 1 2RF azelastine 137 mcg (0.1 %) aerosol,spray 2 spray INTRANASAL QAM Qty: 30 12RF methocarbamol 500 mg tablet 500 mg PO Q8H Qty: 90 5RF ondansetron 8 mg tablet,disintegrating 8 mg PO BID Qty: 30 5RF clonazepam 0.5 mg tablet 0.5 mg PO BID PRN (Reason: anxiety) Qty: 60 5RF calcitonin (salmon) 200 unit/actuation spray,non-aerosol 1 spray intranasal (ALT) DAILY 90 Days Qty: 3.7 2RF Rx Instructions: sacral fx meclizine 25 mg tablet 25 mg PO TID PRN (Reason: dizziness) Qty: 60 1RF sodium bicarbonate 650 mg tablet 1,300 mg PO BID tamsulosin 0.4 mg capsule 0.4 mg PO BEDTIME Patient Comments: take 1 capsule by mouth at bedtime sumatriptan succinate 100 mg tablet See Rx Instructions PO .COMPLEX Rx Instructions: take 1 tab at onset of headache; if no relief, may repeat 1 tab after at least 2 hrs; max = 2 tabs/24 hrs PO Nexplanon 68 mg implant subdermal naloxone 4 mg/actuation spray,non-aerosol 4 mg intranasal Q2M PRN Rx Instructions: spray 1 dose into ONE nostril; alternate nostrils w each dose until help arrives docusate sodium 100 mg capsule 100 mg PO BID Jardiance 10 mg tablet 10 mg PO DAILY (DME) Automated blood pressure arm cuff See Rx Instructions .Route .MEDSUPPLY Qty: 1 0RF Rx Instructions: As directed oxycodone 10 mg tablet See Rx Instructions PO QID Qty: 180 0RF Rx Instructions: 2 pills in the morning, then 1 pill noon, dinner, 2 pills at bedtime oxycodone 10 mg tablet See Rx Instructions PO QID PRN (Reason: pain) Qty: 180 0RF Rx Instructions: 2 pills in the morning, then 1 pill noon, dinner, 2 pills at bedtime oxycodone 10 mg tablet See Rx Instructions PO QID Qty: 180 0RF Rx Instructions: 2 pills in the morning, then 1 pill noon, 1 pill at dinner, 2 pills at bedtime pantoprazole 40 mg tablet,delayed release (DR/EC) 40 mg PO BID Qty: 180 3RF nortriptyline 50 mg capsule 50 mg PO ONCE PM carbamazepine 200 mg tablet 200 mg PO DAILY losartan 25 mg tablet 25 mg PO BID Referrals: Sandor Mitchell MD [Primary Care Provider] - Stand Alone Forms: Patient Portal/API
[2024-02-02 12:29] LABS: Add Manual Diff / Slide Review NO; Basophils Absolute Auto 100 /uL (0-100); Basophils Percent Auto 1.5 % (0-2); Eosinophils Absolute Auto 100 /uL (0-450); Eosinophils Percent Auto 1.7 % (2-4); Hematocrit 39.8 % (36-46); Hemoglobin 13.3 g/dL (12.0-16.0); Lymphocytes Absolute Auto 2300 /uL (1100-4500); Lymphocytes Percent Auto 33.1 % (25-40); Mean Corpuscular HGB Conc 33.4 % (30-36); Mean Corpuscular Hemoglobin 31.6 PG (26-34); Mean Corpuscular Volume 94.8 fL (80-100); Monocytes Absolute Auto 400 /uL (0-900); Monocytes Percent Auto 6.4 % (3-14); Neutrophils Absolute Auto 3900 /uL (1500-7000); Neutrophils Percent Auto 57.3 % (50-75); Platelet Count 286 X10^3/uL (150-400); Red Cell Distribution Width 13.7 % (11.6-14.8); White Blood Cell Count 6.8 X10^3/uL (4.5-11.0)
[2024-02-02 12:44] LABS: INR 0.9 (0.9-1.3); Prothrombin Time 10.1 SECONDS (9.4-12.5)
[2024-02-02 12:46] LABS: Appearance Urine UA CLEAR; Bilirubin Urine UA NEGATIVE (NEGATIVE); Color Urine UA YELLOW; Glucose Urine UA NEGATIVE (Negative); Ketones Urine UA NEGATIVE (NEGATIVE); Leukocyte Esterase Urine UA 1+ (NEGATIVE); Nitrite Urine UA NEGATIVE (Negative); Occult Blood Urine UA TRACE-INTACT (Negative); Protein Urine UA 2+ (Negative); Urobilinogen Urine UA 0.2 E.U./dL (0.2)
[2024-02-02 12:47] LABS: PTT Partial Thromboplastin Tim 35 SECONDS (25.1-36.5)
[2024-02-02 12:48] LABS: Lactate (Lactic Acid) 0.5 mmol/L (0.7-2.1)
[2024-02-02 12:49] LABS: Alanine Aminotransferase 32 IU/L (<35); Albumin 4.2 g/dL (3.5-5.0); Albumin Globulin Ratio 1.4 (1.0-2.8); Alkaline Phosphatase 81 U/L (38-126); Aspartate Aminotransferase 28 IU/L (14-36); BUN Creatinine Ratio 18.6 (6-22); Bilirubin Total 0.6 mg/dL (0.2-1.3); Blood Urea Nitrogen 37 mg/dL (7-17); Calcium 9.3 mg/dL (8.4-10.2); Carbon Dioxide 19 mmol/L (22-32); Chloride 108 mmol/L (98-107); Estimated Glomerular Filt Rate 29 mL/min (>60); Globulin 3.1 g/dL (1.7-4.1); Glucose 109 mg/dL (70-100); HEMOLYSIS < 15 (0-50); Lipase 63 U/L (23-300); Potassium 4.8 mmol/L (3.4-5.1); Sodium 135 mmol/L (137-145); Total Protein 7.3 g/dL (6.3-8.2)
[2024-02-02 12:51] LABS: pH Urine UA 6.5 (4.5-8.0)
[2024-02-02 13:02] LABS: Bacteria Urine None Seen; Culture Indicated Urine Specimen Cultured; RBC Urine None Seen (0-5/HPF); Squamous Epithelial Cell Urine 5-10 /HPF (0-5/HPF); Urine Volume 10mL (spun); WBC Urine 10-30/HPF (0-5/HPF)
[2024-02-02] MEDS: ERTAPENEM 0.5 GM in SODIUM CHLORIDE 0.9% 100 ML IV (13:26)
[2024-02-02 14:26] VITALS: BP 131/78; PULSE 89; RESP 20; TEMP 36.4; O2SAT 100
== END 2024-02-02 14:27 | disposition home or self-care (01) ==
PROVIDERS: Emergency Provider Student in an Organized Health Care Education/Training Program; PCP Internal Medicine
DX: N12 Tubulo-interstitial nephritis, not specified as acute or chronic (principal)
CPT/HCPCS: 36415; 80053; 81001; 83605; 83690; 85025; 85610; 85730; 87040; 87086; 96365; 99284; J1335

== ENCOUNTER → 2024-03-10 13:52 | Outpatient (CLI) | payer MEDICARE, SELFPAY ==
--- NOTE | 2024-03-12 08:27 | DIET.OUTPTC ---
Dietary Outpatient Consultation Note Consultation Date: 03/10/2024 Assessment: 58 y F referred to dietitian for hypertensive CKD with CKD4. Ailin reports confusion over multiple different dietary recommendations. Is seeking clarification on appropriate diet for CKD4 including learning more about potassium, protein needs, help with energy levels and gut health, and better understanding of nutrition for calcium phosphate kidney stones. Reports constantly on antibiotics r/t to e. coli infection. Notes multiple incidences of sepsis r/t this, the most recent one being this past October. Almost daily emesis in morning of bile right after waking up when she is headed to or in the bathroom. Continues to have nausea in morning. Doesn't have appetite until later in day. Regular BMs. Diet recall: Coffee Crackers (ritz) w/ pb-3 tbsp 11.5 g protein If hungry- fruit smoothie with regular yogurt ? c and fruit w/ splash of milk or half and half- 4-6 g protein Dinner 6-630p- chicken or beef with yams and rice and/or plantains or side side salad 4 oz meat 40-50 g/d of protein Labs- per 01/21/24 nephrology report K+ was borderline high at 5.4 and lower potassium diet was recc - note that pt reports K+ labs are up and down frequently with her doctors switching between recc low and high K+ diets causing confusion. Nephrology recc 2 month f/u for repeat labs. per labs done at - K+ within normal range this year and in 2022 with most recent potassium at 4.4 on 02/09/24 Medications: is now taking sodium bicarbonate to help with nausea Ht: 6 ft Wt: 189 lb 5 oz BMI: 25.7 UBW: weight between 78-85 kg (172-189 lb) from 2022 to now Nutrition Diagnosis: Altered nutrition related lab values r/t kidney dysfunction aeb GFR 28 Interventions: Discussed the following and provided appropriate resources: -Nutrition for CKD4 including: lower protein diet w/ discussion on pt's needs and appropriate portion sizing as well as emphasis on plant-based proteins, K+ in diet in regards to added sources and to to food sources, <2g sodium w/ discussion on high sodium sources and label reading, following Mediterranean/DASH/myplate eating styles that emphasis high consumption of fruits and vegs -Nutrition tips for nausea -Nutrition supporting healthy gut -Educ on label reading -Will discuss nutrition r/t kidney stones at f/u Goals-monitor added salt at dinner to determine amount used, fruit smoothie throughout day as tolerated to help meet energy needs, consistent vegetable intake at dinner EER: 50-55 g protein Monitoring/Evaluations: f/u 4-6 wks Electronically Signed by: Leila Nevarez 03/12/24 08:27 Clinical Dietitian [address] [id number]
== END ==
PROVIDERS: PCP Internal Medicine; Referring Provider Internal Medicine
DX: I12.9 Hypertensive chronic kidney disease with stage 1 through stage 4 chronic kidney disease, or unspecified chronic kidney disease (principal); N18.4 Chronic kidney disease, stage 4 (severe); Z71.3 Dietary counseling and surveillance; R41.0 Disorientation, unspecified; Z68.25 Body mass index [BMI] 25.0-25.9, adult
CPT/HCPCS: 97802

== ENCOUNTER → 2024-03-23 11:45 | Outpatient (CLI) | payer MEDICARE, SELFPAY ==
[2024-03-15 09:30] VITALS: BMI 24.4
--- NOTE | 2024-03-23 | DI.RAD.S_ITS ---
PROCEDURE: XR DEXA AXIAL SKELETON INDICATIONS: Other specified disorders of bone density and structure, mul COMPARISON: None. FINDINGS: Lumbar Spine: Bone mineral density 1.006 g/cm2, T score 0.2. Left Hip: Bone mineral density 0.865 g/cm2, T score -0.6. Left Femoral Neck: Bone mineral density 0.802 g/cm2, T score -0.4. Right Hip: Bone mineral density 0.876 g/cm2, T score -0.5. Right Femoral Neck: Bone mineral density 0.864 g/cm2, T score 0.1. Fracture Risk Calculation (when applicable): Not calculated secondary to normal bone mineral density. (T score greater or equal to -1.0 to: NORMAL) (T score from -1.1 to -2.4: OSTEOPENIA) (T score less than or equal to -2.5: OSTEOPOROSIS) IMPRESSION: Normal bone mineral density by WHO classification. Follow-up guidelines as follows: Osteoporosis: Consider a repeat DEXA and Vertebral Fracture Assessment (VFA) exam in 2 years or sooner if medically necessary, to reassess this patient's status. Osteopenia: Consider a repeat DEXA in 2-3 years to reassess this patient's status, or if there is a new clinical indication. Normal: Consider a repeat DEXA in 5 years or sooner, or if there is a new clinical indication. All treatment decisions require clinical judgment and consideration of individual patient factors, including patient preferences, comorbidities, previous drug use, risk factors not captured in the FRAX model (e.g., frailty, falls, vitamin D deficiency, increased bone turnover, interval significant decline in bone density ) and possible under- or over-estimation of fracture risk by FRAX. In addition, the NOF Guide recommends that FDA-approved medical therapies be considered in postmenopausal women and men age >= 50 years with a: * Hip or vertebral (clinical or morphometric) fracture * T-score of <=-2.5 at the spine or hip * Ten-year fracture probability by FRAX of >= 3% for hip fracture or >=20% for major osteoporotic fracture. People with diagnosed cases of osteoporosis or at high risk for fracture should have regular bone mineral density tests. For patients eligible for Medicare, routine testing is allowed once every 2 years. The testing frequency can be increased to one year for patients who have rapidly progressing disease, those who are receiving or discontinuing medical therapy to restore bone mass, or have additional risk factors. Dictated by: Tito Myles M.D. on 03/23/2024 at 15:19 Approved by: Tito Myles M.D. on 03/23/2024 at 15:22
== END ==
PROVIDERS: PCP Internal Medicine; Referring Provider Internal Medicine; Visit Provider Internal Medicine
DX: M85.89 Other specified disorders of bone density and structure, multiple sites (principal); M84.48XA Pathological fracture, other site, initial encounter for fracture
CPT/HCPCS: 77080

== ENCOUNTER → 2024-04-22 14:43 | Outpatient (CLI) | payer MEDICARE, SELFPAY ==
[2024-03-15 09:30] VITALS: BMI 24.4
--- NOTE | 2024-04-22 14:45 | DI.RAD.S_ITS ---
PROCEDURE: XR LUMBAR SPINE 2-3V INDICATIONS: fall, pain TECHNIQUE: 3 views of the lumbar spine were acquired. COMPARISON: [facility], CR, XR LUMBAR SPINE 2-3V, 01/15/2023, 9:58. FINDINGS: Bones: Posterior fusion instrumentation with interbody spacer at L3-L4. Mild periprosthetic lucency about bilateral L3 transpedicular screw, unchanged from prior exam. Mild levocurvature of the lumbar spine, new from prior exam. Mild retrolisthesis of L2 on L3. Mild retrolisthesis of L4 on L5. Vertebral body height of the lumbar spine are well maintained. Multilevel, mild degenerative disc disease of the lumbar spine. Mild lower lumbar facet arthropathy. Soft tissues: Overlying bowel gas pattern is normal. No suspicious soft tissue calcifications. IMPRESSION: Mild periprosthetic lucency about bilateral L3 transpedicular screws, unchanged from prior exam. Mild levoscoliosis lumbar spine, new from prior exam. Dictated by: Katya Young M.D. on 04/22/2024 at 15:57 Approved by: Katya Young M.D. on 04/22/2024 at 15:59
== END ==
LOC: RAD 14:44
PROVIDERS: PCP Internal Medicine; Referring Provider Internal Medicine; Visit Provider Internal Medicine
DX: M54.10 Radiculopathy, site unspecified (principal); M51.369 Other intervertebral disc degeneration, lumbar region without mention of lumbar back pain or lower extremity pain; M47.816 Spondylosis without myelopathy or radiculopathy, lumbar region; M41.9 Scoliosis, unspecified; Z98.1 Arthrodesis status
CPT/HCPCS: 72100

== ENCOUNTER 2024-04-29 13:28 | Emergency (ER) | payer MEDICARE, SELFPAY ==
[2024-03-15 09:30] VITALS: BMI 24.4
[2024-04-29 13:34] VITALS: BP 159/101; PULSE 98; RESP 16; TEMP 36.9; O2SAT 97; BMI 24.4
--- NOTE | 2024-04-29 14:31 | ED.BACK ---
HPI - Back Pain/Injury <Joe Mitchell PA-C - Last Filed: 04/29/24 15:04> General Chief Complaint: Back Pain/Injury Stated Complaint: back pain Time Seen by Provider: 04/29/24 14:22 Source: patient History of Present Illness HPI Narrative: This is a 58-year-old female presents emergency department due to left lumbar pain after being pulled over by her dog causing her to twist in an abnormal direction. She got x-rays of her lumbar spine 3 weeks ago which were negative. She was not reporting any saddle anesthesias, urinary or bowel incontinence, nausea, vomiting, or any other concerning signs or symptoms. States that the pain radiates down her left glute area down her left lower extremity. Denies any acute weakness. Related Data Home Medications Medication Instructions Recorded Confirmed etonogestrel 68 mg subdermal subdermal 06/20/22 04/22/24 implant (Nexplanon) naloxone 4 mg/actuation nasal spray 4 mg intranasal Q2M PRN 06/20/22 04/22/24 sodium bicarbonate 650 mg tablet 1,300 mg PO BID 06/20/22 04/22/24 sumatriptan succinate 100 mg tablet See Rx Instructions PO .COMPLEX 06/20/22 04/22/24 carbamazepine 200 mg tablet 200 mg PO DAILY 04/21/23 04/22/24 nortriptyline 50 mg capsule 50 mg PO ONCE PM 04/21/23 04/22/24 losartan 25 mg tablet 25 mg PO BID 01/21/24 04/22/24 Previous Rx's Medication Instructions Recorded cetirizine 10 mg tablet 10 mg PO QAM #90 tabs 05/19/23 clindamycin phosphate 1 % topical 1 applic topical BID PRN 06/11/23 gel rash;boils #30 grams diclofenac sodium 1 % topical gel 2 g topical BID PRN pain #100 grams 06/12/23 fluticasone propionate 50 50 mcg intranasal QAM #16 grams 09/10/23 mcg/actuation nasal spray,suspension Automated blood pressure arm cuff #1 ea 09/22/23 meclizine 25 mg tablet 25 mg PO TID PRN dizziness #60 tabs 10/13/23 fosfomycin tromethamine 3 gram 3 g PO ONCE #1 ea 11/06/23 oral packet lorazepam 0.5 mg tablet See Rx Instructions PO DAILY PRN 11/06/23 flight anxiety #4 tabs azelastine 137 mcg (0.1 %) nasal 2 spray intranasal QAM #30 mL 11/21/23 spray methocarbamol 500 mg tablet 500 mg PO Q8H #90 tabs 12/04/23 pantoprazole 40 mg tablet,delayed 40 mg PO BID #180 tabs 12/15/23 release ondansetron 8 mg disintegrating 8 mg PO BID #30 tabs 12/19/23 tablet clonazepam 0.5 mg tablet 0.5 mg PO BID PRN anxiety #60 tabs 02/04/24 duloxetine 20 mg capsule,delayed 20 mg PO BID #180 caps 02/04/24 release hydroxyzine pamoate 25 mg capsule 25 mg PO BEDTIME #90 caps 02/23/24 estradiol 0.01% (0.1 mg/gram) 1 g vaginal 2XW #42.5 grams 03/17/24 vaginal cream oxycodone 10 mg tablet See Rx Instructions PO QID #180 03/17/24 tabs oxycodone 10 mg tablet See Rx Instructions PO QID #180 03/17/24 tabs oxycodone 10 mg tablet See Rx Instructions PO QID PRN 03/17/24 pain #180 tabs levothyroxine 75 mcg tablet 75 mcg PO DAILY #90 tabs 04/06/24 calcitonin (salmon) 200 1 spray intranasal DAILY 30 days 04/12/24 unit/actuation nasal spray #3.7 mL cyclobenzaprine 10 mg tablet 10 mg PO TID PRN muscle spasm #30 04/29/24 tabs lidocaine 5 % topical patch 1 patch topical DAILY #30 ea 04/29/24 Allergies Allergy/AdvReac Type Severity Reaction Status Date / Time iodine [IODINE] Allergy Unknown DRINKING Verified 04/22/24 14:11 CONTRAST GIVES HER WELTS atorvastatin AdvReac Intermediate aches Verified 04/22/24 14:11 gabapentin AdvReac Intermediate Confusion Verified 04/22/24 14:11 ertapenem [ERTAPENEM] AdvReac Unknown rise in Verified 04/22/24 14:11 LFTs?? per [facility] records prednisone [PREDNISONE] AdvReac Unknown GETS Verified 04/22/24 14:11 ENRAGED AND SKIN IS CRAWLING Review of Systems <Joe Mitchell PA-C - Last Filed: 04/29/24 15:04> Review of Systems Narrative: GENERAL: Denies chills, fatigue, malaise, fever, sweats. HEENT: Denies sinus pain, ear pain, sore throat, difficulty swallowing, dizziness. RESPIRATORY: Denies dyspnea, cough, wheezing, hemoptysis, sputum. CARDIOVASCULAR: Denies chest pain, palpitations, orthopnea, edema, GASTROINTESTINAL: Denies nausea, vomiting, abdominal pain, diarrhea, constipation, melena. : Denies dysuria, frequency, incontinence, hematuria, urinary retention. MUSCULOSKELETAL: Reports left side lumbar back pain denies weakness, joint pain, or bony pain SKIN: Denies rash, skin lesions, or other NEUROLOGIC: Denies weakness, headache, numbness, change in speech, confusion, seizures, incoordination. PSYCHIATRIC: No concerning psychosocial issues. 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 Depression, major, recurrent E-coli UTI Essential hypertension Foot pain (~2017) Frequent UTI (~2021) GERD without esophagitis Greater trochanteric bursitis of left hip History of frequent headaches (~2018) Interstitial cystitis Major depressive disorder, recurrent, moderate Menopausal syndrome Migraine headache (~2018) Nephrolithiasis (~2006) Other chronic pancreatitis Peripheral neuropathy (~2006) Proteinuria (~2006) Recurrent sinusitis (~2019) Recurrent UTI Sacral back pain Sacral insufficiency fracture Seasonal allergies (~2018) Shingles Slow transit constipation Vocal cord paralysis (~2006) Surgical History Anesthesia Bladder distension H/O section H/O foot surgery H/O lithotripsy H/O prior ablation treatment H/O shoulder surgery History of cholecystectomy History of lumbar laminectomy Family History Mother Hypertension Thyroid disease Heart disease Father Kidney stones ESRF (end stage renal failure) Heart disease Hypertension High cholesterol Grandfather High cholesterol Hypertension Grandmother Diabetes mellitus Heart disease Hypertension High cholesterol Dementia Grandfather Heart disease Hypertension Grandmother Hypertension Stroke Social History household members: family and friend(s) Smoking Status: Current some day smoker alcohol intake: never Smoking Status: Current some day smoker tobacco type: cigarettes alcohol intake frequency: holidays/special occasions only Exam <Joe Mitchell PA-C - Last Filed: 04/29/24 15:04> Narrative Exam Narrative: GENERAL: Well-developed patient, in mild distress. HEAD: Atraumatic. Normocephalic. EYES: Pupils equal round and reactive. Extraocular motions intact. No scleral icterus. No injection or drainage. ENT: Nose without bleeding, purulent drainage. Throat without erythema, tonsillar hypertrophy or exudate. Airway patent. NECK: Trachea midline. Non tender EXTREMITIES: No edema or joint tenderness. NEURO: AOx3. SKIN: No rash or erythema of visible areas Back: Tenderness to palpation in the left lumbar paraspinals Initial Vital Signs Initial Vital Signs: Vital Signs Temperature 98.5 F 04/29/24 13:34 Pulse Rate 98 H 04/29/24 13:34 Respiratory Rate 16 04/29/24 13:34 Blood Pressure 159/101 H 04/29/24 13:34 Pulse Oximetry 97 04/29/24 13:34 Oxygen Delivery Method Room Air 04/29/24 13:34 <Kody Banks DO - Last Filed: 04/29/24 15:53> Initial Vital Signs Initial Vital Signs: Vital Signs Temperature 98.5 F 04/29/24 13:34 Pulse Rate 98 H 04/29/24 13:34 Respiratory Rate 16 04/29/24 13:34 Blood Pressure 159/101 H 04/29/24 13:34 Pulse Oximetry 97 04/29/24 13:34 Oxygen Delivery Method Room Air 04/29/24 13:34 Course <Joe Mitchell PA-C - Last Filed: 04/29/24 15:04> Vital Signs Vital signs: Vital Signs - 8 hr 04/29/24 13:34 04/29/24 15:05 Temperature 98.5 F Pulse Rate 98 H 83 Respiratory Rate 16 19 Blood Pressure 159/101 H 160/96 H Pulse Oximetry 97 98 Oxygen Delivery Method Room Air Room Air <Kody BanksDO - Last Filed: 04/29/24 15:53> Vital Signs Vital signs: Vital Signs - 8 hr 04/29/24 13:34 04/29/24 15:05 Temperature 98.5 F Pulse Rate 98 H 83 Respiratory Rate 16 19 Blood Pressure 159/101 H 160/96 H Pulse Oximetry 97 98 Oxygen Delivery Method Room Air Room Air MDM - Back Pain/Injury <Joe Mitchell PA-C - Last Filed: 04/29/24 15:04> MDM Narrative Medical decision making narrative: ED course: This is a 58-year-old female presenting to the emergency department due to suspected muscular strain of the lumbar area. She was not presenting with any concern red flag symptoms such as saddle paresthesias, urinary or bowel incontinence, fevers. She would x-rays which were negative through her primary care provider. Patient has a extensive history of kidney disease and no Toradol will be given. Patient was also states that she was unable to take steroids due to mood changes. We will attempt treatment with cyclobenzaprine and lidocaine patches. CC: Back pain Complicating co-morbidities: As below Data collected from: Previous notes Medical records reviewed: Patient was seen about 3 months ago due to pyelonephritis. 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 She was sent for 1st dose of IV antibiotic per infectious disease specialist. Also has a history of greater trochanteric bursitis of the left hip, sacral back pain, DJD of the hip, major depression, back pain with radiculopathy, hypertension, chronic lower back pain, hypothyroidism. History of lumbar laminectomy. Differential considered, but not limited to: Lumbar strain, spinal cord injury, fracture Exam documented above, pertinent findings include: Tenderness palpation of the left lumbar paraspinal area Lab Test results independently reviewed as above. Pertinent findings: None obtained Imaging studies independently reviewed: None obtained Scores Used: None MIPS Elements: None Consultations: None Treatments: None Re-evaluations: None Discussion: Discussed plan with the patient was comfortable with the plan Diagnosis: Lumbar strain Disposition: see below, along with detailed discharge instructions that have been reviewed with patient as well as indications for ED re-evaluation and additional outpatient follow up Discharge Plan Departure Patient Disposition: Home Clinical Impression: Lumbar strain Instructions: DI for Low Back Pain Activity Restrictions/Additional Instructions: Thank you for coming to the [facility] Emergency Department today. Please use lidocaine patches as well as muscle relaxants as prescribed. Please follow up with the primary care provider for possible further imaging. Please return to the emergency department if you develop any numbness in the area between your legs, urinary or bowel incontinence, or any other concerning signs or symptoms. I hope you feel better soon. Please follow up with your primary care provider within a week if your symptoms continue. If you do not have a primary care provider please contact the [facility] Resource line at [phone]. They will ask some questions about your medical history and help you get set up with a provider in the community. Prescriptions: New lidocaine 5 % adhesive patch,medicated 1 patch topical DAILY Qty: 30 0RF Rx Instructions: leave on most painful area for up to 12 hrs cyclobenzaprine 10 mg tablet 10 mg PO TID PRN (Reason: muscle spasm) Qty: 30 0RF No Action cetirizine 10 mg tablet 10 mg PO QAM Qty: 90 3RF clindamycin phosphate 1 % gel 1 applic topical BID PRN (Reason: rash;boils) Qty: 30 0RF diclofenac sodium 1 % gel 2 g topical BID PRN (Reason: pain) Qty: 100 1RF Rx Instructions: AREA ON LOWER BACK TWICE DAILY NEEDED fluticasone propionate 50 mcg/actuation spray,suspension 50 mcg INTRANASAL QAM Qty: 16 11RF lorazepam 0.5 mg tablet See Rx Instructions PO DAILY PRN (Reason: flight anxiety) Qty: 4 1RF Rx Instructions: 1-2 daily as needed for flight anxiety fosfomycin tromethamine 3 gram packet 3 g PO ONCE Qty: 1 2RF azelastine 137 mcg (0.1 %) aerosol,spray 2 spray INTRANASAL QAM Qty: 30 12RF methocarbamol 500 mg tablet 500 mg PO Q8H Qty: 90 5RF ondansetron 8 mg tablet,disintegrating 8 mg PO BID Qty: 30 5RF clonazepam 0.5 mg tablet 0.5 mg PO BID PRN (Reason: anxiety) Qty: 60 5RF hydroxyzine pamoate 25 mg capsule 25 mg PO BEDTIME Qty: 90 3RF levothyroxine 75 mcg tablet 75 mcg PO DAILY Qty: 90 3RF calcitonin (salmon) 200 unit/actuation spray,non-aerosol 1 spray intranasal DAILY 30 Days Qty: 3.7 0RF Rx Instructions: DAILY ALTERNATING NOSTRILS meclizine 25 mg tablet 25 mg PO TID PRN (Reason: dizziness) Qty: 60 1RF oxycodone 10 mg tablet See Rx Instructions PO QID Qty: 180 0RF Rx Instructions: 2 pills in the morning, then 1 pill noon, 1 pill at dinner, 2 pills at bedtime oxycodone 10 mg tablet See Rx Instructions PO QID Qty: 180 0RF Rx Instructions: 2 pills in the morning, then 1 pill noon, dinner, 2 pills at bedtime oxycodone 10 mg tablet See Rx Instructions PO QID PRN (Reason: pain) Qty: 180 0RF Rx Instructions: 2 pills in the morning, then 1 pill noon, dinner, 2 pills at bedtime estradiol 0.01 % (0.1 mg/gram) cream 1 g vaginal 2XW Qty: 42.5 3RF sodium bicarbonate 650 mg tablet 1,300 mg PO BID sumatriptan succinate 100 mg tablet See Rx Instructions PO .COMPLEX Rx Instructions: take 1 tab at onset of headache; if no relief, may repeat 1 tab after at least 2 hrs; max = 2 tabs/24 hrs PO Nexplanon 68 mg implant subdermal naloxone 4 mg/actuation spray,non-aerosol 4 mg intranasal Q2M PRN Rx Instructions: spray 1 dose into ONE nostril; alternate nostrils w each dose until help arrives (DME) Automated blood pressure arm cuff See Rx Instructions .Route .MEDSUPPLY Qty: 1 0RF Rx Instructions: As directed pantoprazole 40 mg tablet,delayed release (DR/EC) 40 mg PO BID Qty: 180 3RF duloxetine 20 mg capsule,delayed release(DR/EC) 20 mg PO BID Qty: 180 3RF nortriptyline 50 mg capsule 50 mg PO ONCE PM carbamazepine 200 mg tablet 200 mg PO DAILY losartan 25 mg tablet 25 mg PO BID Referrals: Sandor Mitchell MD [Primary Care Provider] - Stand Alone Forms: Patient Portal/API/Survey ED Sign-out <Kody Banks DO - Last Filed: 04/29/24 15:53> Cosign ED Attending Cosignature Attestation: Dr Banks Co-Sign Statement: I was available for consultation during this patient's emergency department visit. This chart is signed by myself for administrative purposes only. I did not have direct contact with this patient during this visit. They were seen independently by the APC.
[2024-04-29 15:05] VITALS: BP 160/96; PULSE 83; RESP 19; O2SAT 98
== END 2024-04-29 15:12 | disposition home or self-care (01) ==
PROVIDERS: Emergency Provider Physician Assistant Medical; PCP Internal Medicine
DX: S39.012A Strain of muscle, fascia and tendon of lower back, initial encounter (principal); X50.1XXA Overexertion from prolonged static or awkward postures, initial encounter; Y93.K1 Activity, walking an animal
CPT/HCPCS: 99281

== ENCOUNTER → 2024-05-03 16:30 | Outpatient (CLI) | payer MEDICARE, SELFPAY ==
[2024-03-15 09:30] VITALS: BMI 24.4
--- NOTE | 2024-05-03 16:32 | DI.MRI.S_ITS ---
PROCEDURE: MR LUMBAR SPINE WO CON INDICATIONS: severe back pain, compression fx TECHNIQUE: Noncontrast sagittal T1 spin echo and T2 fast echo, sagittal STIR, and T2 fast spin echo through the lumbar spine. In cases with scoliosis, additional coronal T2 fast spin echo may be performed. COMPARISON: [facility], MR, MR LUMBAR SPINE WO CON, 05/21/2023, 7:47. [facility], CR, XR LUMBAR SPINE 2-3V, 04/22/2024, 14:49. [facility], MR, MR LUMBAR SPINE WITHOUT CONTRAST, 02/26/2021, 11:32. FINDINGS: Image quality: There is artifact associated with the metallic hardware. Alignment and Curvature: There is normal bony alignment. Bone Marrow: Marrow is of normal overall signal. No acute vertebral body compression fractures. Spinal Cord: Conus medullaris terminates at the L1 level. Visualized cord demonstrates normal signal and size. Paraspinous Soft Tissues: No paravertebral masses. Several water signal renal cysts can be seen. T12-L1: Normal appearance. L1-L2: Normal appearance. L2-L3: The disc height and disk signal are relatively well-preserved. Mild to moderate disc bulge is seen at this level. Minimal bilateral neural foraminal narrowing can be seen. Minimal central canal narrowing is seen. When comparison is made with the prior images, these findings are similar. L3-L4: Postoperative change is seen at this level, with bilateral pedicle screws and vertical fixation rods. There is a disc spacer seen at this level. There has been removal of portions of the posterior elements. There is [id number] left-sided neural foraminal narrowing. No right-sided neural foraminal narrowing. No central canal narrowing is seen. When comparison is made with the prior images, these findings are similar. L4-L5: The disc height and disk signal are relatively well-preserved. Mild to moderate disc bulge is seen, with a central/left disc protrusion. Moderate facet joint hypertrophy is seen. There is moderate left-sided and [id number] right-sided neural foraminal narrowing. Mild central canal narrowing is seen. When comparison is made with the prior images, these findings are similar. L5-S1: No significant abnormality is seen. IMPRESSION: Postoperative change at L3-L4. Stable multifocal degenerative change. Dictated by: Catrachito Clay M.D. on 05/04/2024 at 10:14 Approved by: Catrachito Clay M.D. on 05/04/2024 at 10:18
== END ==
PROVIDERS: PCP Internal Medicine; Referring Provider Internal Medicine; Visit Provider Internal Medicine
DX: S32.000A Wedge compression fracture of unspecified lumbar vertebra, initial encounter for closed fracture; M47.816 Spondylosis without myelopathy or radiculopathy, lumbar region; Z98.1 Arthrodesis status; X58.XXXA Exposure to other specified factors, initial encounter
CPT/HCPCS: 72148

== ENCOUNTER → 2024-05-06 13:09 | Outpatient (CLI) | payer MEDICARE, SELFPAY ==
[2024-03-15 09:30] VITALS: BMI 24.4
[2024-05-06 14:51] LABS: Add Manual Diff / Slide Review NO; Basophils Absolute Auto 100 /uL (0-100); Basophils Percent Auto 1.1 % (0-2); Eosinophils Absolute Auto 100 /uL (0-450); Eosinophils Percent Auto 1.4 % (2-4); Hemoglobin 13.6 g/dL (12.0-16.0); Lymphocytes Absolute Auto 2400 /uL (1100-4500); Lymphocytes Percent Auto 34.3 % (25-40); Mean Corpuscular HGB Conc 33.9 % (30-36); Mean Corpuscular Hemoglobin 32.5 PG (26-34); Mean Corpuscular Volume 95.8 fL (80-100); Monocytes Absolute Auto 500 /uL (0-900); Monocytes Percent Auto 7.8 % (3-14); Neutrophils Absolute Auto 3800 /uL (1500-7000); Neutrophils Percent Auto 55.4 % (50-75); Platelet Count 326 X10^3/uL (150-400); Red Blood Cell Count 4.18 X10^6/uL (4.0-5.2); Red Cell Distribution Width 13.9 % (11.6-14.8); White Blood Cell Count 6.9 X10^3/uL (4.5-11.0)
[2024-05-06 15:52] LABS: Erythrocyte Sedimentation Rate 17 MM/HR (0-20)
== END ==
PROVIDERS: PCP Internal Medicine; Referring Provider Internal Medicine; Visit Provider Internal Medicine
DX: M46.40 Discitis, unspecified, site unspecified (principal)
CPT/HCPCS: 36415; 85025; 85651; 86140; 87040

== ENCOUNTER 2024-06-17 14:25 | Outpatient (CLI) | payer MEDICARE, SELFPAY ==
[2024-03-15 09:30] VITALS: BMI 24.4
[2024-06-17] VITALS (11 sets, daily range): BP systolic 120–1398; BP diastolic 73–87; PULSE 60–96; RESP 14–20; TEMP 36.8; O2SAT 95–100
--- NOTE | 2024-06-17 14:26 | DI.RAD.S_ITS ---
PROCEDURE: PAIN L/S TRANSFORAMINAL INJECT INDICATIONS: Left L2-3 and L4-5 transforaminal NILDA COMPARISON: [facility], , PAIN L/S TRANSFORAMINAL INJECT, 08/21/2023, 10:33. FINDINGS/IMPRESSION: Fluoroscopic spot filming was performed to verify placement of spinal needles at the left L2-L3 and L4-5 level(s), as labeled on the films. Appropriate location(s) of the needle tip(s) was confirmed by injection of iodinated contrast. Dictated by: Tito Myles M.D. on 06/17/2024 at 17:19 Approved by: Tito Myles M.D. on 06/17/2024 at 17:20
[2024-06-17] MEDS: MIDAZOLAM 2 MG/2 ML VIAL IV ×2 (16:07→16:13)
[2024-06-17] MEDS: iopamidoL 15 ML VIAL 3 ML INJ (16:16)
[2024-06-17] MEDS: methylPREDNISolone acetate 80 MG/ML VIAL INJ (16:16)
[2024-06-17] MEDS: DEXAMETHASONE 10 MG/ML VIAL 20 MG INJ (16:16)
[2024-06-17] MEDS: BUPIVACAINE 0.25% (PF) VIAL 2 ML INJ (16:16)
[2024-06-17] MEDS: BETAMETHASONE 30 MG/5 ML MDV 12 MG INJ (16:17)
[2024-06-17] MEDS: BETAMETHASONE 30 MG/5 ML MDV 6 MG INJ (16:31)
--- NOTE | 2024-06-17 16:36 | P.PCN_ITS ---
Date/Time/Diagnoses Date of procedure: 06/17/24 Time of procedure: 16:36 Pre-procedure diagnosis: 1. FORAMINAL STENOSIS WITH LE SYMPTOMS Post-procedure diagnosis: same Procedure Notes Procedure: 1. FLUOROSCOPICALLY GUIDED CONTRAST CONTROLLED TRANSFORAMINAL EPIDURAL STEROID INJECTION - LEFT L4/5 TFESI Indications: Ailin is referred by Dr. Mitchell for treatment of Foraminal Stenosis with left LE Symptoms Physician: Vega Ritchie Total Fluoroscopy time (seconds): 17 Total sedation minutes: 21 Complications: none Procedure in detail & Post-procedure care: FINDINGS Foraminal Nerve Root Compression secondary to disc disease and facet hypertrophy DESCRIPTION OF PROCEDURE Following review of allergy and review of potential side effects and complications, including, but not necessarily limited to, infection, allergic reaction, local tissue breakdown, stroke, temporary or permanent nerve injury, paralysis, and possible , the patient indicated that the patient understood and agreed to proceed. An informed consent document was signed by the patient, witnessed by a nurse, and placed in the patient's chart. Additionally, other treatment options including medications, modalities, and physical therapy were reviewed with the patient. After review of previous anaesthesic history and IV conscious sedation the patient was deemed safe to proceed with today?s procedure with IV conscious sedation as ASA class II designation. Safety time-out was performed to confirm patient ID, procedure to be performed and site of procedure. IV sedation was accomplished with a combination of 4mg of Versed was administered by the RN after DO order, titrated to patient comfort during the course of the procedure while the patient remained responsive to all verbal commands In the prone position following sterile prep and drape of the lumbar region, the left L4/5 posterior neuroforamen was identified fluoroscopically. The skin was anesthetized via a 25-gauge 1.5-inch needle with 1% lidocaine solution. At this point, a 25-gauge 3.5-inch spinal needle was atraumatically introduced and advanced under fluoroscopic guidance through the posterior left L4/5 neuroforamen to approximately the anterior aspect of the canal. Depth was confirmed on lateral view. Following negative aspiration, injection of approximately 1.5 cc of Isovue 200 under live fluoroscopy in the AP view confirm ed excellent flow along the nerve root, into the epidural space without vascular or intrathecal uptake observed Radiological data, including multiple fluoroscopic views of the lumbosacral spine, reveal a spinal needle at the left L4/5 posterior neuroforamen. Subsequent views show flow of contrast material flowing superiorly and inferiorly along the nerve root confirming epidural flow. Subsequently, a test dose of 1.5cc of 1% lidocaine solution was administered and patient was observed for two minutes for signs or symptoms of complications, including abdominal pain, shortness of breath, bilateral upper or lower extremity weakness, nausea and vomiting, prior to steroid injection. At this point, a total of 3cc or 10mg of dexamethasone and 80mg depomedrol was injected without incident total between the two procedures documented. The patient tolerated the procedure well without signs or symptoms of complications prior to transfer to the recovery area continued monitoring without incident. The patient was then transferred to the recovery area where they were observed for an appropriate time after the injection. The patient reported a VAS score of 8 prior to the procedure and a post-procedure VAS of 1. POST OP INSTRUCTIONS The patient was provided a Pain Log to continue to record their response to the target-specific procedure prior to follow-up visit with their referring physician. Additionally, specific post-injection care instructions and a contact number to our office were provided if concerns arise regarding possible complications associated with the procedure are suspected.
--- NOTE | 2024-06-17 16:38 | P.PCN_ITS ---
Date/Time/Diagnoses Date of procedure: 06/17/24 Time of procedure: 16:38 Pre-procedure diagnosis: 1. FORAMINAL STENOSIS WITH LE SYMPTOMS Post-procedure diagnosis: same Procedure Notes Procedure: 1. FLUOROSCOPICALLY GUIDED CONTRAST CONTROLLED TRANSFORAMINAL EPIDURAL STEROID INJECTION - LEFT L2/3 TFESI Indications: Ailin is referred by Dr. Mitchell for treatment of Foraminal Stenosis with left LE Symptoms Physician: Vega Ritchie Total Fluoroscopy time (seconds): 17 Total sedation minutes: 21 Complications: none Procedure in detail & Post-procedure care: FINDINGS Foraminal Nerve Root Compression secondary to disc disease and facet hypertrophy DESCRIPTION OF PROCEDURE Following review of allergy and review of potential side effects and complications, including, but not necessarily limited to, infection, allergic reaction, local tissue breakdown, stroke, temporary or permanent nerve injury, paralysis, and possible , the patient indicated that the patient understood and agreed to proceed. An informed consent document was signed by the patient, witnessed by a nurse, and placed in the patient's chart. Additionally, other treatment options including medications, modalities, and physical therapy were reviewed with the patient. After review of previous anaesthesic history and IV conscious sedation the patient was deemed safe to proceed with today?s procedure with IV conscious sedation as ASA class II designation. Safety time-out was performed to confirm patient ID, procedure to be performed and site of procedure. IV sedation was accomplished with a combination of 4mg of Versed was administered by the RN after DO order, titrated to patient comfort during the course of the procedure while the patient remained responsive to all verbal commands In the prone position following sterile prep and drape of the lumbar region, the left L2/3 posterior neuroforamen was identified fluoroscopically. The skin was anesthetized via a 25-gauge 1.5-inch needle with 1% lidocaine solution. At this point, a 25-gauge 3.5-inch spinal needle was atraumatically introduced and advanced under fluoroscopic guidance through the posterior left L2/3 neuroforamen to approximately the anterior aspect of the canal. Depth was confirmed on lateral view. Following negative aspiration, injection of approximately 1.5 cc of Isovue 200 under live fluoroscopy in the AP view confirm ed excellent flow along the nerve root, into the epidural space without vascular or intrathecal uptake observed Radiological data, including multiple fluoroscopic views of the lumbosacral spine, reveal a spinal needle at the left L2/3 posterior neuroforamen. Subsequent views show flow of contrast material flowing superiorly and inferiorly along the nerve root confirming epidural flow. Subsequently, a test dose of 1.5cc of 1% lidocaine solution was administered and patient was observed for two minutes for signs or symptoms of complications, including abdominal pain, shortness of breath, bilateral upper or lower extremity weakness, nausea and vomiting, prior to steroid injection. At this point, a total of 3cc or 10mg of dexamethasone and 80mg depo-medrol was injected without incident total divided between the two procedures. The patient tolerated the procedure well without signs or symptoms of complications prior to transfer to the recovery area continued monitoring without incident. The patient was then transferred to the recovery area where they were observed for an appropriate time after the injection. The patient reported a VAS score of 8 prior to the procedure and a post-procedure VAS of 1. POST OP INSTRUCTIONS The patient was provided a Pain Log to continue to record their response to the target-specific procedure prior to follow-up visit with their referring physician. Additionally, specific post-injection care instructions and a contact number to our office were provided if concerns arise regarding possible complications associated with the procedure are suspected.
== END 2024-06-17 16:51 | disposition home or self-care (01) ==
LOC: RAD 14:25
PROVIDERS: PCP Internal Medicine; Referring Provider Physical Medicine & Rehabilitation; Visit Provider Physical Medicine & Rehabilitation
DX: M48.061 Spinal stenosis, lumbar region without neurogenic claudication (principal); M51.16 Intervertebral disc disorders with radiculopathy, lumbar region; M47.26 Other spondylosis with radiculopathy, lumbar region
CPT/HCPCS: 64483; 64484; 99152; 99153; J0702; J1010; J1100; J2250; J3490

== ENCOUNTER → 2024-09-09 10:46 | Outpatient (ROUT) | payer MEDICARE, SELFPAY ==
[2024-03-15 09:30] VITALS: BMI 24.4
== END ==
PROVIDERS: PCP Internal Medicine; Visit Provider Internal Medicine
DX: M54.42 Lumbago with sciatica, left side (principal); G89.29 Other chronic pain; F11.90 Opioid use, unspecified, uncomplicated; E27.8 Other specified disorders of adrenal gland; N18.4 Chronic kidney disease, stage 4 (severe); I12.9 Hypertensive chronic kidney disease with stage 1 through stage 4 chronic kidney disease, or unspecified chronic kidney disease; E03.9 Hypothyroidism, unspecified; K21.9 Gastro-esophageal reflux disease without esophagitis; F33.9 Major depressive disorder, recurrent, unspecified
CPT/HCPCS: 80053; 85025

== ENCOUNTER → 2024-10-30 10:49 | Outpatient (CLI) | payer MEDICARE, SELFPAY ==
[2024-03-15 09:30] VITALS: BMI 24.4
== END ==
PROVIDERS: PCP Internal Medicine; Referring Provider Internal Medicine; Visit Provider Internal Medicine Infectious Disease
DX: N10 Acute pyelonephritis (principal); B96.29 Other Escherichia coli [E. coli] as the cause of diseases classified elsewhere
CPT/HCPCS: J1335

== ENCOUNTER → 2024-10-31 10:55 | Outpatient (CLI) | payer MEDICARE, SELFPAY ==
[2024-03-15 09:30] VITALS: BMI 24.4
== END ==
LOC: INF 10:56
PROVIDERS: PCP Internal Medicine; Referring Provider Physical Medicine & Rehabilitation; Visit Provider Internal Medicine
DX: N10 Acute pyelonephritis (principal); B96.29 Other Escherichia coli [E. coli] as the cause of diseases classified elsewhere

== ENCOUNTER → 2025-02-01 10:40 | Outpatient (CLI) | payer MEDICARE, SELFPAY ==
[2024-03-15 09:30] VITALS: BMI 24.4
[2025-02-01 11:12] LABS: Add Manual Diff / Slide Review NO; Hematocrit 40.3 % (36-46); Hemoglobin 13.7 g/dL (12.0-16.0); Lymphocytes Absolute Auto 2100 /uL (1100-4500); Mean Corpuscular HGB Conc 33.9 % (30-36); Mean Corpuscular Hemoglobin 32.9 PG (26-34); Mean Corpuscular Volume 97.1 fL (80-100); Platelet Count 305 X10^3/uL (150-400)
[2025-02-01 11:24] LABS: Appearance Urine UA SL CLOUDY; Bilirubin Urine UA NEGATIVE (NEGATIVE); Color Urine UA YELLOW; Glucose Urine UA NEGATIVE (Negative); Ketones Urine UA NEGATIVE (NEGATIVE); Leukocyte Esterase Urine UA 3+ (NEGATIVE); Nitrite Urine UA NEGATIVE (Negative); Occult Blood Urine UA 1+ (Negative); Protein Urine UA 2+ (Negative); Specific Gravity Urine UA 1.010 (1.000-1.035); Urobilinogen Urine UA 0.2 E.U./dL (0.2)
[2025-02-01 11:25] LABS: pH Urine UA 6.5 (4.5-8.0)
[2025-02-01 11:38] LABS: Culture Indicated Urine Specimen Cultured
[2025-02-01 11:40] LABS: Albumin 4.5 g/dL (3.5-5.0); Blood Urea Nitrogen 40 mg/dL (7-17); Calcium 9.7 mg/dL (8.4-10.2); Carbon Dioxide 21 mmol/L (22-32); Chloride 106 mmol/L (98-107); Estimated Glomerular Filt Rate 23 mL/min (>60); Glucose 126 mg/dL (70-99); HEMOLYSIS < 15 (0-50); Potassium 4.8 mmol/L (3.4-5.1); Sodium 136 mmol/L (137-145)
== END ==
PROVIDERS: PCP Internal Medicine; Referring Provider Internal Medicine Nephrology; Visit Provider Internal Medicine Nephrology
DX: N18.4 Chronic kidney disease, stage 4 (severe) (principal)
CPT/HCPCS: 36415; 80048; 81001; 82040; 85025; 87077; 87086; 87186

== ENCOUNTER 2025-05-10 13:51 | Outpatient (CLI) | payer MEDICARE, SELFPAY ==
[2024-03-15 09:30] VITALS: BMI 24.4
[2025-05-10] VITALS (8 sets, daily range): BP systolic 107–142; BP diastolic 68–90; PULSE 78–86; RESP 14–19; TEMP 36.8; O2SAT 96–99
[2025-05-10] MEDS: MIDAZOLAM 2 MG/2 ML VIAL IV ×2 (15:08→15:13)
[2025-05-10] MEDS: BETAMETHASONE 30 MG/5 ML MDV 12 MG INJ (15:14)
--- NOTE | 2025-05-10 15:24 | P.PCN_ITS ---
Date/Time/Diagnoses Date of procedure: 05/10/25 Time of procedure: 15:24 Pre-procedure diagnosis: 1. FORAMINAL STENOSIS WITH LE SYMPTOMS Post-procedure diagnosis: same Procedure Notes Procedure: 1. FLUOROSCOPICALLY GUIDED CONTRAST CONTROLLED TRANSFORAMINAL EPIDURAL STEROID INJECTION - LEFT L2/3 TFESI Indications: Ailin is referred by Dr. Mitchell for treatment of Foraminal Stenosis with left LE Symptoms Physician: Vega Ritchie Total Fluoroscopy time (seconds): 10 Total sedation minutes: 12 Complications: none Procedure in detail & Post-procedure care: FINDINGS Foraminal Nerve Root Compression secondary to disc disease and facet hypertrophy DESCRIPTION OF PROCEDURE Following review of allergy and review of potential side effects and complications, including, but not necessarily limited to, infection, allergic reaction, local tissue breakdown, stroke, temporary or permanent nerve injury, paralysis, and possible , the patient indicated that the patient understood and agreed to proceed. An informed consent document was signed by the patient, witnessed by a nurse, and placed in the patient's chart. Additionally, other treatment options including medications, modalities, and physical therapy were reviewed with the patient. After review of previous anaesthesic history and IV conscious sedation the patient was deemed safe to proceed with today?s procedure with IV conscious sedation as ASA class II designation. Safety time-out was performed to confirm patient ID, procedure to be performed and site of procedure. IV sedation was accomplished with a combination of 2mg of Versed was administered by the RN after DO order, titrated to patient comfort during the course of the procedure while the patient remained responsive to all verbal commands In the prone position following sterile prep and drape of the lumbar region, the left L3/4 posterior neuroforamen was identified fluoroscopically. The skin was anesthetized via a 25-gauge 1.5-inch needle with 1% lidocaine solution. At this point, a 25-gauge 3.5-inch spinal needle was atraumatically introduced and advanced under fluoroscopic guidance through the posterior left L3/4 neuroforamen to approximately the anterior aspect of the canal. Depth was confirmed on lateral view. Following negative aspiration, injection of approximately 1.5 cc of Isovue 200 under live fluoroscopy in the AP view confirm ed excellent flow along the nerve root, into the epidural space without vascular or intrathecal uptake observed Radiological data, including multiple fluoroscopic views of the lumbosacral spine, reveal a spinal needle at the left L3/4 posterior neuroforamen. Subsequent views show flow of contrast material flowing superiorly and inferiorly along the nerve root confirming epidural flow. Subsequently, a test dose of 1.5cc of 0.25% marcaine solution was administered and patient was observed for two minutes for signs or symptoms of complications, including abdominal pain, shortness of breath, bilateral upper or lower extremity weakness, nausea and vomiting, prior to steroid injection. At this point, a total of 3cc or 10mg of dexamethasone and 12mg betamethasone was injected without incident. The patient tolerated the procedure well without signs or symptoms of complications prior to transfer to the recovery area continued monitoring without incident. The patient was then transferred to the recovery area where they were observed for an appropriate time after the injection. The patient reported a VAS score of 7 prior to the procedure and a post-procedure VAS of 0. POST OP INSTRUCTIONS The patient was provided a Pain Log to continue to record their response to the target-specific procedure prior to follow-up visit with their referring physician. Additionally, specific post-injection care instructions and a contact number to our office were provided if concerns arise regarding possible complications associated with the procedure are suspected.
== END 2025-05-10 16:23 | disposition home or self-care (01) ==
LOC: RAD 13:52
PROVIDERS: PCP Internal Medicine; Referring Provider Physical Medicine & Rehabilitation; Visit Provider Physical Medicine & Rehabilitation
DX: M48.061 Spinal stenosis, lumbar region without neurogenic claudication (principal); M51.16 Intervertebral disc disorders with radiculopathy, lumbar region; M47.26 Other spondylosis with radiculopathy, lumbar region
CPT/HCPCS: 64483; 99152; J0702; J1100; J2250